=== PATIENT | male | born 1960 | race Caucasian/White ===

== ENCOUNTER 2016-03-19 11:37 | Emergency (ER) | payer OTHER ==
[~2016-03-19 11:37] MED LIST: ACET500C PO; BISA10SU4 PR; CLON0.2T PO; CLON0.5T PO; CYCL5TA PO; DOCU10CA PO; DULC5TAB PO; DULO30CA PO; FLOM5CAP PO; HYDR-3713 PO; LIDO2.5C15 TOP; LINZ145C PO; LYRI200C PO; LYRI75CA PO; MEVA40TA PO; MIRA3350 PO; MORP-38 PO; MORP30TA34 PO; MYLI40DR PO; OXYC-299 PO; OXYC5CAP28 PO; PROT1TAB2 PO; ROBA750T4 PO; SENN8.6T10 PO; SOMA350T PO; TIZA4CAP3 PO; VICO5TAB16 PO; XARE15TA PO; ZOFR20TA PO; ZOLO50TA PO; [UNRECOGNIZED DRUG - CODE] TOP; [UNRECOGNIZED DRUG - CODE] TOP; flexeril PO
[2016-03-19] MEDS ORDERED: ONDANSETRON 4MG/2ML VIAL (J2405) As Ordered ONE (12:38)
[2016-03-19] MEDS ORDERED: KETOROLAC 30 MG/ML VIAL (J1885) As Ordered ONE (12:38)
[2016-03-19 12:41] LABS: MICROSCOPIC INDICATED? NO (NO)
[2016-03-19 12:44] LABS: BASO % 0.8 % (0.0-1.0); EOS # 0.2 K/mm3 (0.0-0.50); EOS % 3.2 % (0.0-3.0); LARGE UNSTAINED CELL # 0.1 K/mm3 (0.0-0.4); LARGE UNSTAINED CELL % 2.9 % (0.0-4.0); LYMPH # 1.1 K/mm3 (1.5-4.5); LYMPH % 21.7 % (24.0-44.0); MEAN CORPUSCULAR HEMOGLOBIN 30.2 pg (27.0-33.0); MEAN CORPUSCULAR HGB CONC 33.9 g/dl (32.0-36.5); MEAN CORPUSCULAR VOLUME 88.9 fl (80.0-96.0); MONO # 0.3 K/mm3 (0.0-0.8); MONO % 6.4 % (0.0-5.0); NEUTROPHILS # 3.2 K/mm3 (1.8-7.7); PLATELET COUNT, AUTOMATED 265 k/mm3 (150-450); RED CELL DISTRIBUTION WIDTH 12.6 % (11.5-14.5); WHITE BLOOD COUNT 4.9 K/mm3 (4.0-10.0)
[2016-03-19 12:52] LABS: INR 0.98
[2016-03-19 13:05] LABS: ALBUMIN 3.8 GM/DL (3.2-5.2); ALBUMIN/GLOBULIN RATIO 0.95 (1.00-1.93); ALKALINE PHOSPHATASE 102 U/L (45-117); ALT/SGPT 22 U/L (12-78); AMYLASE 32 U/L (25-115); ANION GAP 7 MEQ/L (8-16); AST/SGOT 16 U/L (15-37); BILIRUBIN,DIRECT 0.1 MG/DL (0.0-0.2); BILIRUBIN,TOTAL 0.5 MG/DL (0.2-1.0); BLOOD UREA NITROGEN 18 MG/DL (7-18); CALCIUM LEVEL 9.3 MG/DL (8.5-10.1); CARBON DIOXIDE LEVEL 33 MEQ/L (21-32); CHLORIDE LEVEL 103 MEQ/L (98-107); CREATININE FOR GFR 1.24 MG/DL (0.70-1.30); GLOMERULAR FILTRATION RATE > 60.0 (>56); GLUCOSE, FASTING 111 MG/DL (70-105); POTASSIUM SERUM 4.2 MEQ/L (3.5-5.1); SODIUM LEVEL 143 MEQ/L (136-145); TOTAL PROTEIN 7.8 GM/DL (6.4-8.2)
[2016-03-19] MEDS ORDERED: MORPHINE 4 MG/ML 1ML SYRINGE As Ordered ONE (13:39)
--- NOTE | 2016-03-19 14:07 | EDDOCDS ---
Physician Documentation [facility] Name: Guillermo Lobo Age: 56 yrs Sex: Male : 1960 Arrival Date: 03/19/2016 Time: 11:37 Bed I5 / M5 Private MD: Jose Alejandro Zaragoza A. Disposition: 03/19/16 13:46 Discharged to Home/Self Care. Impression: Low back pain. - Condition is Stable. - Discharge Instructions: Back Pain, Adult. - Medication Reconciliation, Local Pharmacy Hours form. - Follow up: Jose Alejandro Zaragoza; When: 2 - 3 days; Reason: Recheck today's complaints, Continuance of care. - Problem is an ongoing problem. - Symptoms are unchanged. Historical: - Allergies: BACLOFEN; Codeine Sulfate; - Home Meds: 1. clonazepam 1 mg oral tab 2 times per day 2. Cymbalta 90 mg Oral cpDR 1 cap once daily 3. Flomax 0.4 mg Oral cp24 2 caps once daily 4. lidocaine topically four times a day 5. Mevacor 40 mg Oral tab 1 tab once daily 6. Miralax 17 gram Oral pwpk 1 packet chad daily 7. pregabalin 200 mg Oral cap 1 cap 3 times per day 8. Protonix 40 mg Oral TbEC 1 tab once daily 9. oxycodone 5 mg Oral tab as needed 10. Zoloft 50 mg Oral tab 1 tab once daily 11. Robaxin 750 mg Oral tab twice a day - PMHx: Chronic Back pain; Kidney stones; Hypercholesterolemia; GERD; - PSHx: kidney stone removal; back surgery; Cholecystectomy; - Social history: Smoking status: Patient states was never smoker of tobacco. No barriers to communication noted, The patient speaks fluent Guinean, Speaks appropriately for age. - Family history: Not pertinent. - : The pt / caregiver states he / she is not on anticoagulants. Home medication list is obtained from the patient, [employer] import data. - Exposure Risk Screening:: None identified. Vital Signs: 03/19 11:39 BP 117 / 83; Pulse 105; Resp 18 S; Temp 97.5(O); Pulse Ox 96% on R/A; Weight 111.13 kg dd6 / 245 lbs (R); Height 6 ft. 4 in. (193.04 cm) (R); 13:32 BP 104 / 75 RA Supine (auto/reg); Pulse 77; Resp 18; Temp 97.6(O); Pulse Ox 94% on R/A; rs6 Pain 8/10; 14:04 BP 107 / 63; Pulse 90; Resp 16; Temp 97.0; jmk 11:39 Body Mass Index 29.82 (111.13 kg, 193.04 cm) dd6 MDM: 12:14 NS 0.9% 1000 ml IV at 100 mL/hr continuous ordered. ke 12:14 Ondansetron 4 mg IVP once ordered. ke 12:14 ketorolac 30 mg IVP once ordered. ke 12:14 IV Saline Lock ordered. ke 12:14 Undress patient appropriately for examination ordered. ke 12:15 Amylase Ordered. EDMS 12:15 Basic Metabolic Profile Ordered. EDMS 12:15 CBC with Diff Ordered. EDMS 12:15 Lipase Ordered. EDMS 12:15 Liver Profile Ordered. EDMS 12:15 Prothrombin Time Profile\E\INR Ordered. EDMS 12:15 Urinalysis Ordered. EDMS 12:15 CT ABD & PELVIS: No Contrast Ordered. EDMS 12:16 NOTHING BY MOUTH+DIET ordered. EDMS 12:16 Financial registration complete. lg 12:48 [facility] Payment Agreement was scanned into [employer] and attached to record. lg 13:09 Basic Metabolic Profile Reviewed. ke 13:09 CBC with Diff Reviewed. ke 13:09 Liver Profile Reviewed. ke 13:09 Urinalysis Reviewed. ke 13:09 Amylase Reviewed. ke 13:09 Lipase Reviewed. ke 13:09 Prothrombin Time Profile\E\INR Reviewed. ke 13:35 morphine 4 mg IVP once ordered. ke Administered Medications: 12:42 Drug: NS 0.9% 1000 ml Route: IV; Rate: 100 mL/hr; Site: left antecubital; jmherminia 12:42 Drug: Ondansetron 4 mg Route: IVP; Site: left antecubital; vincenzo 12:42 Drug: ketorolac 30 mg [ketorolac 30 mg/mL (1 mL) injection solution (1 mL)] Route: IVP; vincenzo Site: left antecubital; 13:44 Drug: morphine 4 mg Route: IVP; Site: left antecubital; jmk Signatures: Dispatcher [employer] EDMS Jose L Patel,RN RN Edna Bunrs, Reg Reg lg Marco Queen, DECORATOR CONSULTANT DECORATOR CONSULTANT Alondra Mayer,RN RN seamus The chart was reviewed and I authenticate all verbal orders and agree with the evaluation and treatment provided.Attachments: 12:48 [facility] Payment Agreement lg MTDD
--- NOTE | 2016-03-19 14:07 | EDDOCDS ---
Nurse's Notes [facility] Name: Guillermo Lobo Age: 56 yrs Sex: Male : 1960 Arrival Date: 03/19/2016 Time: 11:37 Bed I5 / M5 Private MD: Jose Alejandro Zaragoza A. Diagnosis: Low back pain Presentation: 03/19 11:46 Presenting complaint: Patient states: c/o right sided abdominal pain, right flank pain, ead and right groin pain x 3 days. denies n/v, denies urinary pain. Acute neurological deficits are not present. Mechanism of Injury: No Mechanism of Injury. Adult Sepsis Screening: The patient does not have new or worsening altered mentation. Patient's respiratory rate is less than 22. Systolic blood pressure is greater than 100. Patient has a qSOFA score of 0- Negative Sepsis Screen. Suicide/Homicide risk assessment- the patient denies having any suicidal and/or homicidal ideations and does not present with any other emotional, behavioral or mental health complaints. Status: Patient is not a financial services professional or dependent. Transition of care: patient was not received from another setting of care. 11:46 Acuity: SONA Level 3 ead 11:46 Method Of Arrival: Walkin/Carried/Asstd ead Triage Assessment: 11:53 General: Appears in no apparent distress, uncomfortable, Behavior is appropriate for ead age, cooperative. Pain: Location: abdomen and pelvis Pain currently is 10 out of 10 on a pain scale. HIV screening NA for this visit Offered previously. Respiratory: Airway is patent Respiratory effort is even, unlabored. GI: Reports lower abdominal pain, Denies nausea, vomiting. Derm: Skin is pink, warm & dry. Musculoskeletal: Reports pain in back and abdomen. Historical: - Allergies: BACLOFEN; Codeine Sulfate; - Home Meds: 1. clonazepam 1 mg oral tab 2 times per day 2. Cymbalta 90 mg Oral cpDR 1 cap once daily 3. Flomax 0.4 mg Oral cp24 2 caps once daily 4. lidocaine topically four times a day 5. Mevacor 40 mg Oral tab 1 tab once daily 6. Miralax 17 gram Oral pwpk 1 packet chad daily 7. pregabalin 200 mg Oral cap 1 cap 3 times per day 8. Protonix 40 mg Oral TbEC 1 tab once daily 9. oxycodone 5 mg Oral tab as needed 10. Zoloft 50 mg Oral tab 1 tab once daily 11. Robaxin 750 mg Oral tab twice a day - PMHx: Chronic Back pain; Kidney stones; Hypercholesterolemia; GERD; - PSHx: kidney stone removal; back surgery; Cholecystectomy; - Social history: Smoking status: Patient states was never smoker of tobacco. No barriers to communication noted, The patient speaks fluent Greek, Speaks appropriately for age. - Family history: Not pertinent. - : The pt / caregiver states he / she is not on anticoagulants. Home medication list is obtained from the patient, [employer] import data. - Exposure Risk Screening:: None identified. Screenin:45 Screening information is obtained from the patient. Fall risk: No risks identified. [facility] Assistance ADL's: requires no assistance with activities of daily living. Abuse/DV Screen: The patient / caregiver reports he/she is: not in a situation that causes fear, pain or injury. Nutritional screening: No deficits noted. home support is adequate. Assessment: 12:45 General: Appears in no apparent distress, skin warm and dry color satisfactory. Moist jmk pink oral mucosa. abd soft and non distended with bowel sounds present x 4. indicates discomfort to right flank area.. GI: Abdomen is non- distended obese, Bowel sounds present X 4 quads. Abd is soft X 4 quads Abd is tender to palpation in right upper quadrant and right lower quadrant. 13:31 General: Appears states pain has decreased to 7/10. IV nearing completion.. jmk 14:04 General: Appears states pain has decreased to 6-7 and is receptive to discharge.. k Vital Signs: 11:39 BP 117 / 83; Pulse 105; Resp 18 S; Temp 97.5(O); Pulse Ox 96% on R/A; Weight 111.13 kg dd6 (R); Height 6 ft. 4 in. (193.04 cm) (R); 13:32 BP 104 / 75 RA Supine (auto/reg); Pulse 77; Resp 18; Temp 97.6(O); Pulse Ox 94% on R/A; rs6 Pain 8/10; 14:04 BP 107 / 63; Pulse 90; Resp 16; Temp 97.0; jmk 11:39 Body Mass Index 29.82 (111.13 kg, 193.04 cm) dd6 Vitals: 11:39 Log In Time: March 19, 2016 at 11:37. dd6 ED Course: 11:38 Patient visited by Dhaval Flood PCA. dd6 11:38 Patient moved to Waiting dd6 11:39 Jose Alejandro Zaragoza is Private Physician. dd6 11:40 Patient moved to Pre RCE dd6 11:48 Triage Initiated ead 11:56 Patient moved to Triage 2 rs3 12:04 [facility] ke 12:05 Patient visited by Marco uQeen FNP. ke 12:05 Patient visited by Marco Queen FNP. ke 12:17 Elise Edmond, RN is Primary Nurse. ar3 12:17 Patient moved to I5 / M5 ar3 12:20 Urinalysis Sent. ar3 12:21 Patient visited by Marco Queen FNP. ke 12:45 The patient / caregiver is instructed regarding the plan of care and ED course. jmk 12:45 Inserted saline lock: 20 gauge in left and blood collected. jmk 12:48 [facility] Payment Agreement was scanned into Order Mapper and attached to record. lg 12:56 Patient visited by Marco Queen FNP. ke 13:29 Patient visited by Marco Queen FNP. ke 13:32 Patient visited by Lulu Castle PCA. rs6 13:34 Patient visited by Jose L Patel,[place]. jmk 13:45 Jose Alejandro Zaragoza is Referral Physician. ke 14:04 Discontinued lock intact, bleeding controlled, pressure dressing applied, No jmk redness/swelling at site. No procedures done that require assistance. Administered Medications: 12:42 Drug: NS 0.9% 1000 ml Route: IV; Rate: 100 mL/hr; Site: left antecubital; agustínk 12:42 Drug: Ondansetron 4 mg Route: IVP; Site: left antecubital; jmk 12:42 Drug: ketorolac 30 mg [ketorolac 30 mg/mL (1 mL) injection solution (1 mL)] Route: IVP; agustínk Site: left antecubital; 13:44 Drug: morphine 4 mg Route: IVP; Site: left antecubital; jmk Order Results: Lab Order: Amylase; SPEC'M 03/19/16 12:34 Test: AMYLASE; Value: 32; Range: 25-115; Units: U/L; Status: F Lab Order: Basic Metabolic Profile; SPEC'M 03/19/16 12:34 Test: GLUCOSE, FASTING; Value: 111; Range: 70-105; Abnormal: Above high normal; Units: MG/DL; Status: F Test: BLOOD UREA NITROGEN; Value: 18; Range: 7-18; Units: MG/DL; Status: F Test: CREATININE FOR GFR; Value: 1.24; Range: 0.70-1.30; Units: MG/DL; Status: F Test: GLOMERULAR FILTRATION RATE; Value: > 60.0; Range: >56; Status: F Test: SODIUM LEVEL; Value: 143; Range: 136-145; Units: MEQ/L; Status: F Test: POTASSIUM SERUM; Value: 4.2; Range: 3.5-5.1; Units: MEQ/L; Status: F Test: CHLORIDE LEVEL; Value: 103; Range: 98-107; Units: MEQ/L; Status: F Test: CARBON DIOXIDE LEVEL; Value: 33; Range: 21-32; Abnormal: Above high normal; Units: MEQ/L; Status: F Test: ANION GAP; Value: 7; Range: 8-16; Abnormal: Below low normal; Units: MEQ/L; Status: F Test: CALCIUM LEVEL; Value: 9.3; Range: 8.5-10.1; Units: MG/DL; Status: F Test Note: ; Units are mL/min/1.73 m2 Chronic Kidney Disease Staging per NKF: Stage I & II GFR >=60 Normal to Mildly Decreased Stage III GFR 30-59 Moderately Decreased Stage IV GFR 15-29 Severely Decreased Stage V GFR <15 Very Little GFR Left ESRD GFR <15 on [employer] Lab Order: CBC with Diff; SPEC'M 03/19/16 12:34 Test: WHITE BLOOD COUNT; Value: 4.9; Range: 4.0-10.0; Units: K/mm3; Status: F Test: RED BLOOD COUNT; Value: 5.01; Range: 4.30-6.10; Units: M/mm3; Status: F Test: HEMOGLOBIN; Value: 15.1; Range: 14.0-18.0; Units: g/dl; Status: F Test: HEMATOCRIT; Value: 44.5; Range: 42.0-52.0; Units: %; Status: F Test: MEAN CORPUSCULAR VOLUME; Value: 88.9; Range: 80.0-96.0; Units: fl; Status: F Test: MEAN CORPUSCULAR HEMOGLOBIN; Value: 30.2; Range: 27.0-33.0; Units: pg; Status: F Test: MEAN CORPUSCULAR HGB CONC; Value: 33.9; Range: 32.0-36.5; Units: g/dl; Status: F Test: RED CELL DISTRIBUTION WIDTH; Value: 12.6; Range: 11.5-14.5; Units: %; Status: F Test: PLATELET COUNT, AUTOMATED; Value: 265; Range: 150-450; Units: k/mm3; Status: F Test: NEUTROPHILS %; Value: 65.0; Range: 36.0-66.0; Units: %; Status: F Test: LYMPH %; Value: 21.7; Range: 24.0-44.0; Abnormal: Below low normal; Units: %; Status: F Test: MONO %; Value: 6.4; Range: 0.0-5.0; Abnormal: Above high normal; Units: %; Status: F Test: EOS %; Value: 3.2; Range: 0.0-3.0; Abnormal: Above high normal; Units: %; Status: F Test: BASO %; Value: 0.8; Range: 0.0-1.0; Units: %; Status: F Test: LARGE UNSTAINED CELL %; Value: 2.9; Range: 0.0-4.0; Units: %; Status: F Test: NEUTROPHILS #; Value: 3.2; Range: 1.8-7.7; Units: K/mm3; Status: F Test: LYMPH #; Value: 1.1; Range: 1.5-4.5; Abnormal: Below low normal; Units: K/mm3; Status: F Test: MONO #; Value: 0.3; Range: 0.0-0.8; Units: K/mm3; Status: F Test: EOS #; Value: 0.2; Range: 0.0-0.50; Units: K/mm3; Status: F Test: BASO #; Value: 0.0; Range: 0.0-0.2; Units: K/mm3; Status: F Test: LARGE UNSTAINED CELL #; Value: 0.1; Range: 0.0-0.4; Units: K/mm3; Status: F Lab Order: Lipase; SPEC' 03/19/16 12:34 Test: LIPASE; Value: 126; Range: 73-393; Units: U/L; Status: F Lab Order: Liver Profile; SPEC'M 03/19/16 12:34 Test: AST/SGOT; Value: 16; Range: 15-37; Units: U/L; Status: F Test: ALT/SGPT; Value: 22; Range: 12-78; Units: U/L; Status: F Test: ALKALINE PHOSPHATASE; Value: 102; Range: 45-117; Units: U/L; Status: F Test: BILIRUBIN,TOTAL; Value: 0.5; Range: 0.2-1.0; Units: MG/DL; Status: F Test: BILIRUBIN,DIRECT; Value: 0.1; Range: 0.0-0.2; Units: MG/DL; Status: F Test: TOTAL PROTEIN; Value: 7.8; Range: 6.4-8.2; Units: GM/DL; Status: F Test: ALBUMIN; Value: 3.8; Range: 3.2-5.2; Units: GM/DL; Status: F Test: ALBUMIN/GLOBULIN RATIO; Value: 0.95; Range: 1.00-1.93; Abnormal: Below low normal; Status: F Lab Order: Prothrombin Time Profile\E\INR; SPEC'M 03/19/16 12:34 Test: PROTHROMBIN TIME; Value: 13.1; Range: 12.3-14.5; Units: SECONDS; Status: F Test: INR; Value: 0.98; Status: F Test Note: ; THERAPUTIC HUMAN INR VALUES INDICATIONS NORMAL RANGES PROPHYLAXIS/TREATMENT OF: VENOUS THROMBOSIS 2.0-3.0 PULMONARY EMBOLISM 2.0-3.0 PREVENTION OF SYSTEMIC EMBOLISM FROM: TISSUE HEART VALVES 2.0-3.0 ACUTE MYOCARDIAL INFARCTION 2.0-3.0 VALVULAR HEART DISEASE 2.0-3.0 ATRIAL FIBRILLATION 2.0-3.0 MECHANICAL VALVES(HIGH RISK) 2.5-3.5 RECURRENT MYOCARDIAL INFARCTION 2.5-3.5 Lab Order: Urinalysis; SPEC'M 03/19/16 12:20 Test: APPEARANCE, URINE; Value: CLEAR; Range: CLEAR; Status: F Test: COLOR, URINE; Value: YELLOW; Range: YELLOW; Status: F Test: PH,URINE; Value: 5.0; Range: 5.0-9.0; Units: UNITS; Status: F Test: SPECIFIC GRAVITY URINE AUTO; Value: 1.016; Range: 1.002-1.035; Status: F Test: PROTEIN, URINE AUTO; Value: NEGATIVE; Range: NEGATIVE; Units: mg/dL; Status: F Test: GLUCOSE, URINE (UA) AUTO; Value: NEGATIVE; Range: NEGATIVE; Units: mg/dL; Status: F Test: KETONE, URINE AUTO; Value: NEGATIVE; Range: NEGATIVE; Units: mg/dL; Status: F Test: UROBILINOGEN, URINE AUTO; Value: 0.2; Range: 0.0-2.0; Units: mg/dL; Status: F Test: BILIRUBIN, URINE AUTO; Value: 1+; Range: NEGATIVE; Abnormal: Above high normal; Status: F Test: NITRITE, URINE AUTO; Value: NEGATIVE; Range: NEGATIVE; Status: F Test: LEUKOCYTE ESTERASE, URINE AUTO; Value: NEGATIVE; Range: NEGATIVE; Status: F Test: BLOOD, URINE BLOOD; Value: NEGATIVE; Range: NEGATIVE; Status: F Test: WBC, URINE AUTO; Value: 1; Range: 0-3; Units: /HPF; Status: F Test: RBC, URINE AUTO; Value: 1; Range: 0-3; Units: /HPF; Status: F Test: BACTERIA, URINE AUTO; Value: NEGATIVE; Range: NEGATIVE; Status: F Test: SQUAMOUS EPITHELIAL CELL UR AU; Value: 0; Range: 0-6; Units: /HPF; Status: F Test: MUCUS, URINE; Value: SMALL; Range: NEGATIVE; Status: F Test: HYALINE CAST, URINE AUTO; Value: 0; Range: 0-1; Units: /LPF; Status: F Outcome: 13:46 Discharge ordered by Provider. ke 14:04 Discharge Assessment: Patient awake, alert and oriented x 3. No cognitive and/or jmk functional deficits noted. Patient verbalized understanding of disposition instructions. patient administered narcotics - yes. Pt provided with safe discharge. The following High Risk Discharge criteria are identified: None. Discharged to home via wheelchair. Condition: good. Discharge instructions given to patient, Instructed on discharge instructions, follow up and referral plans. medication usage, Demonstrated understanding of instructions, medications, Pt was receptive of discharge instructions/ teaching. CT Study completed. Property :Personal belongings accompany Pt. 14:06 Patient left the ED. vincenzo Signatures: Jose L Patel,RN RN Edna Burns, Reg Reg lg Marco Queen, SUPERVISOR REINFORCED STEEL PLACING SUPERVISOR REINFORCED STEEL PLACING Dhaval Baird, CLINICAL PROFESSOR CLINICAL PROFESSOR dd6 Margaret Lovett,RN RN rs3 Audra Urban, CLINICAL PROFESSOR CLINICAL PROFESSOR ar3 Alondra Ayers,RN RN Lulu Dave, CLINICAL PROFESSOR CLINICAL PROFESSOR rs6 RAMÍREZ
--- NOTE | 2016-03-19 17:18 | REP ---
CT abdomen and pelvis without contrast 03/19/2016 Indication: Right-sided renal colic Comparison: CT pelvis 12/09/2014, CT abdomen pelvis 12/01/14 Findings: Stable 13 mm cyst is present with in the right dome of liver. Spleen, pancreas, adrenal glands are normal. There has been prior cholecystectomy. Two small nonobstructing Nephro calculi are noted in lower pole right kidney, largest 4 mm in diameter. Nonobstructing 6 x 2 mm calculus is noted in the lower pole left kidney. There is a 2.2 cm cyst in lower pole right renal cortex. There is no hydronephrosis or obstructing ureteral calculi bilaterally. There are bilateral lower pelvic phleboliths. The stomach and small bowel are within normal limits. The terminal ileum is normal. Appendix is not specifically identified yet there is no evidence of appendiceal inflammation. There are no pathologically enlarged retroperitoneal nodes. Bladder is contracted. Prostate is not enlarged. There is no free air or ascites There has been previous bilateral posterior fusion with vertical stabilization rods within the included portions of the lower thoracic spine through L1 level. Impression: No hydronephrosis or obstructing ureteral calculi bilaterally. There are two small nonobstructing adjacent right Nephro calculi, largest 4 mm. Additionally there is a 6 x 2 mm nonobstructing calculus in lower pole left kidney. There is a 2.2 cm cortical cyst lower pole right kidney. Bilateral lower pelvic phleboliths There is no acute intra abdominal or pelvic pathology Signed by Ariella Mtz MD 03/19/2016 05:10 P
--- NOTE | 2016-03-21 15:07 | EDDOCDS ---
Nurse's Notes [facility] Name: Guillermo Lobo Age: 56 yrs Sex: Male : 1960 Arrival Date: 03/19/2016 Time: 11:37 Bed I5 / M5 Private MD: Jose Alejandro Zaragoza A. Diagnosis: Low back pain Presentation: 03/19 11:46 Presenting complaint: Patient states: c/o right sided abdominal pain, right flank pain, ead and right groin pain x 3 days. denies n/v, denies urinary pain. Acute neurological deficits are not present. Mechanism of Injury: No Mechanism of Injury. Adult Sepsis Screening: The patient does not have new or worsening altered mentation. Patient's respiratory rate is less than 22. Systolic blood pressure is greater than 100. Patient has a qSOFA score of 0- Negative Sepsis Screen. Suicide/Homicide risk assessment- the patient denies having any suicidal and/or homicidal ideations and does not present with any other emotional, behavioral or mental health complaints. 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 Transition of care: patient was not received from another setting of care. 11:46 Acuity: SONA Level 3 ead 11:46 Method Of Arrival: Walkin/Carried/Asstd ead Triage Assessment: 11:53 General: Appears in no apparent distress, uncomfortable, Behavior is appropriate for ead age, cooperative. Pain: Location: abdomen and pelvis Pain currently is 10 out of 10 on a pain scale. HIV screening NA for this visit Offered previously. Respiratory: Airway is patent Respiratory effort is even, unlabored. GI: Reports lower abdominal pain, Denies nausea, vomiting. Derm: Skin is pink, warm & dry. Musculoskeletal: Reports pain in back and abdomen. Historical: - Allergies: BACLOFEN; Codeine Sulfate; - Home Meds: 1. clonazepam 1 mg oral tab 2 times per day 2. Cymbalta 90 mg Oral cpDR 1 cap once daily 3. Flomax 0.4 mg Oral cp24 2 caps once daily 4. lidocaine topically four times a day 5. Mevacor 40 mg Oral tab 1 tab once daily 6. Miralax 17 gram Oral pwpk 1 packet chad daily 7. pregabalin 200 mg Oral cap 1 cap 3 times per day 8. Protonix 40 mg Oral TbEC 1 tab once daily 9. oxycodone 5 mg Oral tab as needed 10. Zoloft 50 mg Oral tab 1 tab once daily 11. Robaxin 750 mg Oral tab twice a day - PMHx: Chronic Back pain; Kidney stones; Hypercholesterolemia; GERD; - PSHx: kidney stone removal; back surgery; Cholecystectomy; - Social history: Smoking status: Patient states was never smoker of tobacco. No barriers to communication noted, The patient speaks fluent Spanish, Speaks appropriately for age. - Family history: Not pertinent. - : The pt / caregiver states he / she is not on anticoagulants. Home medication list is obtained from the patient, [employer] import data. - Exposure Risk Screening:: None identified. Screenin:45 Screening information is obtained from the patient. Fall risk: No risks identified. [facility] Assistance ADL's: requires no assistance with activities of daily living. Abuse/DV Screen: The patient / caregiver reports he/she is: not in a situation that causes fear, pain or injury. Nutritional screening: No deficits noted. home support is adequate. Assessment: 12:45 General: Appears in no apparent distress, skin warm and dry color satisfactory. Moist jmk pink oral mucosa. abd soft and non distended with bowel sounds present x 4. indicates discomfort to right flank area.. GI: Abdomen is non- distended obese, Bowel sounds present X 4 quads. Abd is soft X 4 quads Abd is tender to palpation in right upper quadrant and right lower quadrant. 13:31 General: Appears states pain has decreased to 7/10. IV nearing completion.. jmk 14:04 General: Appears states pain has decreased to 6-7 and is receptive to discharge.. k Vital Signs: 11:39 BP 117 / 83; Pulse 105; Resp 18 S; Temp 97.5(O); Pulse Ox 96% on R/A; Weight 111.13 kg dd6 (R); Height 6 ft. 4 in. (193.04 cm) (R); 13:32 BP 104 / 75 RA Supine (auto/reg); Pulse 77; Resp 18; Temp 97.6(O); Pulse Ox 94% on R/A; rs6 Pain 8/10; 14:04 BP 107 / 63; Pulse 90; Resp 16; Temp 97.0; jmk 11:39 Body Mass Index 29.82 (111.13 kg, 193.04 cm) dd6 Vitals: 11:39 Log In Time: March 19, 2016 at 11:37. dd6 ED Course: 11:38 Patient visited by Dhaval Flood PCA. dd6 11:38 Patient moved to Waiting dd6 11:39 Jose Alejandro Zaragoza is Private Physician. dd6 11:40 Patient moved to Pre RCE dd6 11:48 Triage Initiated ead 11:56 Patient moved to Triage 2 rs3 12:04 Marco Queen FNP is PHCP. ke 12:05 Patient visited by Marco Queen FNP. ke 12:05 Patient visited by Marco Queen FNP. ke 12:17 Elise Edmond, RN is Primary Nurse. ar3 12:17 Patient moved to I5 / M5 ar3 12:20 Urinalysis Sent. ar3 12:21 Patient visited by Marco Queen FNP. ke 12:45 The patient / caregiver is instructed regarding the plan of care and ED course. jmk 12:45 Inserted saline lock: 20 gauge in left and blood collected. jmk 12:48 [facility] Payment Agreement was scanned into [employer] and attached to record. lg 12:56 Patient visited by Marco Queen FNP. ke 13:29 Patient visited by Marco Queen FNP. ke 13:32 Patient visited by Lulu Castle PCA. rs6 13:34 Patient visited by Jose L Patel,[place]. jmk 13:45 Jose Alejandro Zaragoza is Referral Physician. ke 14:04 Discontinued lock intact, bleeding controlled, pressure dressing applied, No jmk redness/swelling at site. No procedures done that require assistance. 17:43 CT ABD & PELVIS: No Contrast Returned. EDMS 03/20 02:19 T-Sheet-- Draft Copy was scanned into [employer] and attached to record. hs2 Administered Medications: 03/19 12:42 Drug: NS 0.9% 1000 ml Route: IV; Rate: 100 mL/hr; Site: left antecubital; vincenzo 12:42 Drug: Ondansetron 4 mg Route: IVP; Site: left antecubital; vincenzo 12:42 Drug: ketorolac 30 mg [ketorolac 30 mg/mL (1 mL) injection solution (1 mL)] Route: IVP; [facility] Site: left antecubital; 13:44 Drug: morphine 4 mg Route: IVP; Site: left antecubital; [facility] Order Results: Lab Order: Amylase; SPEC'03/19/16 12:34 Test: AMYLASE; Value: 32; Range: 25-115; Units: U/L; Status: F Lab Order: Basic Metabolic Profile; SPEC03/19/16 12:34 Test: GLUCOSE, FASTING; Value: 111; Range: 70-105; Abnormal: Above high normal; Units: MG/DL; Status: F Test: BLOOD UREA NITROGEN; Value: 18; Range: 7-18; Units: MG/DL; Status: F Test: CREATININE FOR GFR; Value: 1.24; Range: 0.70-1.30; Units: MG/DL; Status: F Test: GLOMERULAR FILTRATION RATE; Value: > 60.0; Range: >56; Status: F Test: SODIUM LEVEL; Value: 143; Range: 136-145; Units: MEQ/L; Status: F Test: POTASSIUM SERUM; Value: 4.2; Range: 3.5-5.1; Units: MEQ/L; Status: F Test: CHLORIDE LEVEL; Value: 103; Range: 98-107; Units: MEQ/L; Status: F Test: CARBON DIOXIDE LEVEL; Value: 33; Range: 21-32; Abnormal: Above high normal; Units: MEQ/L; Status: F Test: ANION GAP; Value: 7; Range: 8-16; Abnormal: Below low normal; Units: MEQ/L; Status: F Test: CALCIUM LEVEL; Value: 9.3; Range: 8.5-10.1; Units: MG/DL; Status: F Test Note: ; Units are mL/min/1.73 m2 Chronic Kidney Disease Staging per NKF: Stage I & II GFR >=60 Normal to Mildly Decreased Stage III GFR 30-59 Moderately Decreased Stage IV GFR 15-29 Severely Decreased Stage V GFR <15 Very Little GFR Left ESRD GFR <15 on MACHINE APPLICATOR CEMENTER Lab Order: CBC with Diff; SPEC'03/19/16 12:34 Test: WHITE BLOOD COUNT; Value: 4.9; Range: 4.0-10.0; Units: K/mm3; Status: F Test: RED BLOOD COUNT; Value: 5.01; Range: 4.30-6.10; Units: M/mm3; Status: F Test: HEMOGLOBIN; Value: 15.1; Range: 14.0-18.0; Units: g/dl; Status: F Test: HEMATOCRIT; Value: 44.5; Range: 42.0-52.0; Units: %; Status: F Test: MEAN CORPUSCULAR VOLUME; Value: 88.9; Range: 80.0-96.0; Units: fl; Status: F Test: MEAN CORPUSCULAR HEMOGLOBIN; Value: 30.2; Range: 27.0-33.0; Units: pg; Status: F Test: MEAN CORPUSCULAR HGB CONC; Value: 33.9; Range: 32.0-36.5; Units: g/dl; Status: F Test: RED CELL DISTRIBUTION WIDTH; Value: 12.6; Range: 11.5-14.5; Units: %; Status: F Test: PLATELET COUNT, AUTOMATED; Value: 265; Range: 150-450; Units: k/mm3; Status: F Test: NEUTROPHILS %; Value: 65.0; Range: 36.0-66.0; Units: %; Status: F Test: LYMPH %; Value: 21.7; Range: 24.0-44.0; Abnormal: Below low normal; Units: %; Status: F Test: MONO %; Value: 6.4; Range: 0.0-5.0; Abnormal: Above high normal; Units: %; Status: F Test: EOS %; Value: 3.2; Range: 0.0-3.0; Abnormal: Above high normal; Units: %; Status: F Test: BASO %; Value: 0.8; Range: 0.0-1.0; Units: %; Status: F Test: LARGE UNSTAINED CELL %; Value: 2.9; Range: 0.0-4.0; Units: %; Status: F Test: NEUTROPHILS #; Value: 3.2; Range: 1.8-7.7; Units: K/mm3; Status: F Test: LYMPH #; Value: 1.1; Range: 1.5-4.5; Abnormal: Below low normal; Units: K/mm3; Status: F Test: MONO #; Value: 0.3; Range: 0.0-0.8; Units: K/mm3; Status: F Test: EOS #; Value: 0.2; Range: 0.0-0.50; Units: K/mm3; Status: F Test: BASO #; Value: 0.0; Range: 0.0-0.2; Units: K/mm3; Status: F Test: LARGE UNSTAINED CELL #; Value: 0.1; Range: 0.0-0.4; Units: K/mm3; Status: F Lab Order: Lipase; [facility]' 03/19/16 12:34 Test: LIPASE; Value: 126; Range: 73-393; Units: U/L; Status: F Lab Order: Liver Profile; [facility] 03/19/16 12:34 Test: AST/SGOT; Value: 16; Range: 15-37; Units: U/L; Status: F Test: ALT/SGPT; Value: 22; Range: 12-78; Units: U/L; Status: F Test: ALKALINE PHOSPHATASE; Value: 102; Range: 45-117; Units: U/L; Status: F Test: BILIRUBIN,TOTAL; Value: 0.5; Range: 0.2-1.0; Units: MG/DL; Status: F Test: BILIRUBIN,DIRECT; Value: 0.1; Range: 0.0-0.2; Units: MG/DL; Status: F Test: TOTAL PROTEIN; Value: 7.8; Range: 6.4-8.2; Units: GM/DL; Status: F Test: ALBUMIN; Value: 3.8; Range: 3.2-5.2; Units: GM/DL; Status: F Test: ALBUMIN/GLOBULIN RATIO; Value: 0.95; Range: 1.00-1.93; Abnormal: Below low normal; Status: F Lab Order: Prothrombin Time Profile\E\INR; [facility]03/19/16 12:34 Test: PROTHROMBIN TIME; Value: 13.1; Range: 12.3-14.5; Units: SECONDS; Status: F Test: INR; Value: 0.98; Status: F Test Note: ; THERAPUTIC HUMAN INR VALUES INDICATIONS NORMAL RANGES PROPHYLAXIS/TREATMENT OF: VENOUS THROMBOSIS 2.0-3.0 PULMONARY EMBOLISM 2.0-3.0 PREVENTION OF SYSTEMIC EMBOLISM FROM: TISSUE HEART VALVES 2.0-3.0 ACUTE MYOCARDIAL INFARCTION 2.0-3.0 VALVULAR HEART DISEASE 2.0-3.0 ATRIAL FIBRILLATION 2.0-3.0 MECHANICAL VALVES(HIGH RISK) 2.5-3.5 RECURRENT MYOCARDIAL INFARCTION 2.5-3.5 Lab Order: Urinalysis; SPEC'M 03/19/16 12:20 Test: APPEARANCE, URINE; Value: CLEAR; Range: CLEAR; Status: F Test: COLOR, URINE; Value: YELLOW; Range: YELLOW; Status: F Test: PH,URINE; Value: 5.0; Range: 5.0-9.0; Units: UNITS; Status: F Test: SPECIFIC GRAVITY URINE AUTO; Value: 1.016; Range: 1.002-1.035; Status: F Test: PROTEIN, URINE AUTO; Value: NEGATIVE; Range: NEGATIVE; Units: mg/dL; Status: F Test: GLUCOSE, URINE (UA) AUTO; Value: NEGATIVE; Range: NEGATIVE; Units: mg/dL; Status: F Test: KETONE, URINE AUTO; Value: NEGATIVE; Range: NEGATIVE; Units: mg/dL; Status: F Test: UROBILINOGEN, URINE AUTO; Value: 0.2; Range: 0.0-2.0; Units: mg/dL; Status: F Test: BILIRUBIN, URINE AUTO; Value: 1+; Range: NEGATIVE; Abnormal: Above high normal; Status: F Test: NITRITE, URINE AUTO; Value: NEGATIVE; Range: NEGATIVE; Status: F Test: LEUKOCYTE ESTERASE, URINE AUTO; Value: NEGATIVE; Range: NEGATIVE; Status: F Test: BLOOD, URINE BLOOD; Value: NEGATIVE; Range: NEGATIVE; Status: F Test: WBC, URINE AUTO; Value: 1; Range: 0-3; Units: /HPF; Status: F Test: RBC, URINE AUTO; Value: 1; Range: 0-3; Units: /HPF; Status: F Test: BACTERIA, URINE AUTO; Value: NEGATIVE; Range: NEGATIVE; Status: F Test: SQUAMOUS EPITHELIAL CELL UR AU; Value: 0; Range: 0-6; Units: /HPF; Status: F Test: MUCUS, URINE; Value: SMALL; Range: NEGATIVE; Status: F Test: HYALINE CAST, URINE AUTO; Value: 0; Range: 0-1; Units: /LPF; Status: F Radiology Order: CT ABD & PELVIS: No Contrast Test: CT ABD & PELVIS: No Contrast REASON FOR EXAMINATION: Renal colic; CT abdomen and pelvis without contrast 03/19/2016; ; Indication: Right-sided renal colic; ; Comparison: CT pelvis 12/09/2014, CT abdomen pelvis 12/01/14; ; Findings: Stable 13 mm cyst is present with in the right dome of liver. Spleen,; pancreas, adrenal glands are normal. There has been prior cholecystectomy. Two; small nonobstructing Nephro calculi are noted in lower pole right kidney,; largest 4 mm in diameter. Nonobstructing 6 x 2 mm calculus is noted in the; lower pole left kidney. There is a 2.2 cm cyst in lower pole right renal; cortex. There is no hydronephrosis or obstructing ureteral calculi bilaterally.; There are bilateral lower pelvic phleboliths. The stomach and small bowel are; within normal limits. The terminal ileum is normal. Appendix is not; specifically identified yet there is no evidence of appendiceal inflammation.; There are no pathologically enlarged retroperitoneal nodes.; ; Bladder is contracted. Prostate is not enlarged. There is no free air or; ascites; ; There has been previous bilateral posterior fusion with vertical stabilization; rods within the included portions of the lower thoracic spine through L1 level.; ; Impression:; ; No hydronephrosis or obstructing ureteral calculi bilaterally. There are two; small nonobstructing adjacent right Nephro calculi, largest 4 mm. Additionally; there is a 6 x 2 mm nonobstructing calculus in lower pole left kidney. There is; a 2.2 cm cortical cyst lower pole right kidney.; ; Bilateral lower pelvic phleboliths; ; There is no acute intra abdominal or pelvic pathology; ; ; Signed by; Ariella Mtz MD 03/19/2016 05:10 P; Outcome: 13:46 Discharge ordered by Provider. dilip 14:04 Discharge Assessment: Patient awake, alert and oriented x 3. No cognitive and/or jmk functional deficits noted. Patient verbalized understanding of disposition instructions. patient administered narcotics - yes. Pt provided with safe discharge. The following High Risk Discharge criteria are identified: None. Discharged to home via wheelchair. Condition: good. Discharge instructions given to patient, Instructed on discharge instructions, follow up and referral plans. medication usage, Demonstrated understanding of instructions, medications, Pt was receptive of discharge instructions/ teaching. CT Study completed. Property :Personal belongings accompany Pt. 14:06 Patient left the ED. vincenzo Signatures: Dispatcher [employer] EDJose L Mendez,RN RN Edna Burns, Reg Reg lg Marco Queen, SECTION MAINTAINER SECTION MAINTAINER Dhaval Baird, COSTUME MISTRESS COSTUME MISTRESS dd6 Margaret LovettRN RN rs3 Audra Urban, COSTUME MISTRESS COSTUME MISTRESS ar3 Alondra Ayers,RN RN Lulu Dave, COSTUME MISTRESS COSTUME MISTRESS rs6 Veronica Del Angel, Reg Reg hs2 Chart Complete MTDD
--- NOTE | 2016-03-21 15:07 | EDDOCDS ---
Physician Documentation [facility] Name: Guillermo Lobo Age: 56 yrs Sex: Male : 1960 Arrival Date: 03/19/2016 Time: 11:37 Bed I5 / M5 Private MD: Jose Alejandro Zaragoza A. Disposition: 03/19/16 13:46 Discharged to Home/Self Care. Impression: Low back pain. - Condition is Stable. - Discharge Instructions: Back Pain, Adult. - Medication Reconciliation, Local Pharmacy Hours form. - Follow up: Jose Alejandro Zaragoza; When: 2 - 3 days; Reason: Recheck today's complaints, Continuance of care. - Problem is an ongoing problem. - Symptoms are unchanged. Historical: - Allergies: BACLOFEN; Codeine Sulfate; - Home Meds: 1. clonazepam 1 mg oral tab 2 times per day 2. Cymbalta 90 mg Oral cpDR 1 cap once daily 3. Flomax 0.4 mg Oral cp24 2 caps once daily 4. lidocaine topically four times a day 5. Mevacor 40 mg Oral tab 1 tab once daily 6. Miralax 17 gram Oral pwpk 1 packet chad daily 7. pregabalin 200 mg Oral cap 1 cap 3 times per day 8. Protonix 40 mg Oral TbEC 1 tab once daily 9. oxycodone 5 mg Oral tab as needed 10. Zoloft 50 mg Oral tab 1 tab once daily 11. Robaxin 750 mg Oral tab twice a day - PMHx: Chronic Back pain; Kidney stones; Hypercholesterolemia; GERD; - PSHx: kidney stone removal; back surgery; Cholecystectomy; - Social history: Smoking status: Patient states was never smoker of tobacco. No barriers to communication noted, The patient speaks fluent Salvadorean, Speaks appropriately for age. - Family history: Not pertinent. - : The pt / caregiver states he / she is not on anticoagulants. Home medication list is obtained from the patient, [employer] import data. - Exposure Risk Screening:: None identified. Vital Signs: 03/19 11:39 BP 117 / 83; Pulse 105; Resp 18 S; Temp 97.5(O); Pulse Ox 96% on R/A; Weight 111.13 kg dd6 / 245 lbs (R); Height 6 ft. 4 in. (193.04 cm) (R); 13:32 BP 104 / 75 RA Supine (auto/reg); Pulse 77; Resp 18; Temp 97.6(O); Pulse Ox 94% on R/A; rs6 Pain 8/10; 14:04 BP 107 / 63; Pulse 90; Resp 16; Temp 97.0; jmk 11:39 Body Mass Index 29.82 (111.13 kg, 193.04 cm) dd6 MDM: 12:14 NS 0.9% 1000 ml IV at 100 mL/hr continuous ordered. ke 12:14 Ondansetron 4 mg IVP once ordered. ke 12:14 ketorolac 30 mg IVP once ordered. ke 12:14 IV Saline Lock ordered. ke 12:14 Undress patient appropriately for examination ordered. ke 12:15 Amylase Ordered. EDMS 12:15 Basic Metabolic Profile Ordered. EDMS 12:15 CBC with Diff Ordered. EDMS 12:15 Lipase Ordered. EDMS 12:15 Liver Profile Ordered. EDMS 12:15 Prothrombin Time Profile\E\INR Ordered. EDMS 12:15 Urinalysis Ordered. EDMS 12:15 CT ABD & PELVIS: No Contrast Ordered. EDMS 12:16 NOTHING BY MOUTH+DIET ordered. EDMS 12:16 Financial registration complete. lg 12:48 [facility] Payment Agreement was scanned into [employer] and attached to record. lg 13:09 Basic Metabolic Profile Reviewed. ke 13:09 CBC with Diff Reviewed. ke 13:09 Liver Profile Reviewed. ke 13:09 Urinalysis Reviewed. ke 13:09 Amylase Reviewed. ke 13:09 Lipase Reviewed. ke 13:09 Prothrombin Time Profile\E\INR Reviewed. ke 13:35 morphine 4 mg IVP once ordered. ke 03/20 02:19 T-Sheet-- Draft Copy was scanned into [employer] and attached to record. hs2 Administered Medications: 03/19 12:42 Drug: NS 0.9% 1000 ml Route: IV; Rate: 100 mL/hr; Site: left antecubital; vincenzo 12:42 Drug: Ondansetron 4 mg Route: IVP; Site: left antecubital; vincenzo 12:42 Drug: ketorolac 30 mg [ketorolac 30 mg/mL (1 mL) injection solution (1 mL)] Route: IVP; vincenzo Site: left antecubital; 13:44 Drug: morphine 4 mg Route: IVP; Site: left antecubital; vincenzo Signatures: Dispatcher [employer] Jose L Tyson,RN RN Edna Burns, Reg Reg lg Marco Queen, WIRELINE SUPERVISOR Alondra Mcallister,RN RN Veronica Martinez, Reg Reg hs2 The chart was reviewed and I authenticate all verbal orders and agree with the evaluation and treatment provided.Attachments: 12:48 [facility] Payment Agreement lg 03/20 02:19 T-Sheet-- Draft Copy hs2 Chart Complete MTDD
--- NOTE | 2016-03-21 15:07 | EDDOCDS ---
Physician Documentation [facility] Name: Guillermo Lobo Age: 56 yrs Sex: Male : 1960 Arrival Date: 03/19/2016 Time: 11:37 Bed I5 / M5 Private MD: Jose Alejandro Zaragoza A. Disposition: 03/19/16 13:46 Discharged to Home/Self Care. Impression: Low back pain. - Condition is Stable. - Discharge Instructions: Back Pain, Adult. - Medication Reconciliation, Local Pharmacy Hours form. - Follow up: Jose Alejandro Zaragoza; When: 2 - 3 days; Reason: Recheck today's complaints, Continuance of care. - Problem is an ongoing problem. - Symptoms are unchanged. Historical: - Allergies: BACLOFEN; Codeine Sulfate; - Home Meds: 1. clonazepam 1 mg oral tab 2 times per day 2. Cymbalta 90 mg Oral cpDR 1 cap once daily 3. Flomax 0.4 mg Oral cp24 2 caps once daily 4. lidocaine topically four times a day 5. Mevacor 40 mg Oral tab 1 tab once daily 6. Miralax 17 gram Oral pwpk 1 packet chad daily 7. pregabalin 200 mg Oral cap 1 cap 3 times per day 8. Protonix 40 mg Oral TbEC 1 tab once daily 9. oxycodone 5 mg Oral tab as needed 10. Zoloft 50 mg Oral tab 1 tab once daily 11. Robaxin 750 mg Oral tab twice a day - PMHx: Chronic Back pain; Kidney stones; Hypercholesterolemia; GERD; - PSHx: kidney stone removal; back surgery; Cholecystectomy; - Social history: Smoking status: Patient states was never smoker of tobacco. No barriers to communication noted, The patient speaks fluent [place], Speaks appropriately for age. - Family history: Not pertinent. - : The pt / caregiver states he / she is not on anticoagulants. Home medication list is obtained from the patient, [employer] import data. - Exposure Risk Screening:: None identified. Vital Signs: 03/19 11:39 BP 117 / 83; Pulse 105; Resp 18 S; Temp 97.5(O); Pulse Ox 96% on R/A; Weight 111.13 kg dd6 / 245 lbs (R); Height 6 ft. 4 in. (193.04 cm) (R); 13:32 BP 104 / 75 RA Supine (auto/reg); Pulse 77; Resp 18; Temp 97.6(O); Pulse Ox 94% on R/A; rs6 Pain 8/10; 14:04 BP 107 / 63; Pulse 90; Resp 16; Temp 97.0; jmk 11:39 Body Mass Index 29.82 (111.13 kg, 193.04 cm) dd6 MDM: 12:14 NS 0.9% 1000 ml IV at 100 mL/hr continuous ordered. ke 12:14 Ondansetron 4 mg IVP once ordered. ke 12:14 ketorolac 30 mg IVP once ordered. ke 12:14 IV Saline Lock ordered. ke 12:14 Undress patient appropriately for examination ordered. ke 12:15 Amylase Ordered. EDMS 12:15 Basic Metabolic Profile Ordered. EDMS 12:15 CBC with Diff Ordered. EDMS 12:15 Lipase Ordered. EDMS 12:15 Liver Profile Ordered. EDMS 12:15 Prothrombin Time Profile\E\INR Ordered. EDMS 12:15 Urinalysis Ordered. EDMS 12:15 CT ABD & PELVIS: No Contrast Ordered. EDMS 12:16 NOTHING BY MOUTH+DIET ordered. EDMS 12:16 Financial registration complete. lg 12:48 [facility] Payment Agreement was scanned into [employer] and attached to record. lg 13:09 Basic Metabolic Profile Reviewed. ke 13:09 CBC with Diff Reviewed. ke 13:09 Liver Profile Reviewed. ke 13:09 Urinalysis Reviewed. ke 13:09 Amylase Reviewed. ke 13:09 Lipase Reviewed. ke 13:09 Prothrombin Time Profile\E\INR Reviewed. ke 13:35 morphine 4 mg IVP once ordered. ke 03/20 02:19 T-Sheet-- Draft Copy was scanned into [employer] and attached to record. hs2 Administered Medications: 03/19 12:42 Drug: NS 0.9% 1000 ml Route: IV; Rate: 100 mL/hr; Site: left antecubital; vincenzo 12:42 Drug: Ondansetron 4 mg Route: IVP; Site: left antecubital; vincenzo 12:42 Drug: ketorolac 30 mg [ketorolac 30 mg/mL (1 mL) injection solution (1 mL)] Route: IVP; vincenzo Site: left antecubital; 13:44 Drug: morphine 4 mg Route: IVP; Site: left antecubital; vincenzo Signatures: Dispatcher [employer] Jose L Tyson,RN RN Edna Burns, Reg Reg lg Marco Queen, ORTHOPEDIC NURSE Alondra Mcallister,RN RN Veronica Martinez, Reg Reg hs2 The chart was reviewed and I authenticate all verbal orders and agree with the evaluation and treatment provided.Attachments: 12:48 [facility] Payment Agreement lg 03/20 02:19 T-Sheet-- Draft Copy hs2 Chart Complete MTDD
== END 2016-03-19 14:06 | disposition home or self-care (01) ==
LOC: M ED 11:37
DX: N20.0 Calculus of kidney (principal); M54.9 Dorsalgia, unspecified; R10.9 Unspecified abdominal pain; G89.29 Other chronic pain; Z87.442 Personal history of urinary calculi; Z90.49 Acquired absence of other specified parts of digestive tract; Z79.899 Other long term (current) drug therapy; Z88.2 Allergy status to sulfonamides; Z88.5 Allergy status to narcotic agent; Z88.8 Allergy status to other drugs, medicaments and biological substances
CPT/HCPCS: 36415; 74176; 80048; 80076; 81001; 82150; 83690; 85025; 85610; 96374; 96375; 99284; J1885; J2405

== ENCOUNTER 2016-09-27 12:09 | Emergency (ER) | payer MEDICARE ==
[~2016-09-27] VITALS: Ht 193 cm; Wt 105.5 kg
[~2016-09-27 12:09] MED LIST changes: +MORP1TAB20 PO; -MORP30TA34 PO; +OXYC-141 PO; -OXYC-299 PO; +SENN1TAB10 PO; -SENN8.6T10 PO
[2016-09-27] MEDS ORDERED: NEUR600T PO (12:39)
[2016-09-27] MEDS ORDERED: COLA100C5 PO (12:39)
[2016-09-27] MEDS ORDERED: ROXI1TAB2 PO (12:39)
[2016-09-27] MEDS ORDERED: KETOROLAC 30 MG/ML VIAL (J1885) IV ONE (13:45)
[2016-09-27] MEDS ORDERED: NS 1,000 ML IV ONE (13:45)
[2016-09-27 14:18] LABS: BASO % 0.9 % (0.0-1.0); EOS # 0.2 K/mm3 (0.0-0.50); EOS % 3.9 % (0.0-3.0); LARGE UNSTAINED CELL # 0.1 K/mm3 (0.0-0.4); LARGE UNSTAINED CELL % 1.3 % (0.0-4.0); MEAN CORPUSCULAR HEMOGLOBIN 31.3 pg (27.0-33.0); MEAN CORPUSCULAR HGB CONC 34.4 g/dl (32.0-36.5); MEAN CORPUSCULAR VOLUME 90.8 fl (80.0-96.0); MONO # 0.3 K/mm3 (0.0-0.8); MONO % 7.1 % (0.0-5.0); NEUTROPHILS # 2.9 K/mm3 (1.8-7.7); NEUTROPHILS % 64.7 % (36.0-66.0); PLATELET COUNT, AUTOMATED 251 k/mm3 (150-450); RED CELL DISTRIBUTION WIDTH 12.7 % (11.5-14.5); WHITE BLOOD COUNT 4.5 K/mm3 (4.0-10.0)
[2016-09-27 14:26] LABS: INR 0.93
--- NOTE | 2016-09-27 14:26 | REP ---
CT of the pelvis without IV and oral contrast: Comparisons 03/19/2016. There is no hydronephrosis on the right on the left. There is a nonobstructive 6 x 8 mm calculus in the lower pole of the right kidney. In addition there is a nonobstructive a 4 mm calculus in the lower pole of the right kidney. There is a 3 ml nonobstructive calculus lower pole left kidney. In addition there is a 3 mm nonobstructive calculus in the lower pole of the left kidney. There is a 2.7 cm cyst in the lower pole of the right kidney. There is chronic fibro linear scarring in the lower lobes of the right and left lungs bilaterally, unchanged. There is an old there are old healed rib fractures of the lower ribs posteriorly bilaterally, unchanged. There are pedicle screws and stabilization rods in the thoracic spine and upper lumbar spine, as previously. There is a 16 mm cyst in the right lobe of the liver. This measured 13 mm previously. The unenhanced hepatic parenchyma is otherwise homogeneous. Surgical clips are noted in the gallbladder fossa. This is unchanged. The pancreas and spleen are unremarkable. The adrenals are unremarkable. The abdominal aorta is unremarkable. There is no bowel distension or obstruction. The mesentery is unremarkable. Pelvis: The appendix cannot be identified. There is no pericecal inflammation or abscess. There is no pelvic ascites or adenopathy. The bladder is nondistended and cannot be further assessed. There is a small fat-containing left inguinal hernia. There is mild wall thickening of the sigmoid colon. This is nonspecific but is compatible with colitis in the appropriate clinical setting. Per Impression: There is no hydronephrosis. There are nonobstructing renal calculi bilaterally. No ureteral calculi. There are findings compatible with colitis in the appropriate clinical setting. No ascites. No bowel distension or obstruction. Hepatic cyst. Right renal cortical cyst. Spinal stabilization rods. Old healed fractures of the posterior ribs bilaterally. Cholecystectomy. The appendix is not identified. There is no pericecal inflammation or abscess. Signed by Herman Nielsen MD 09/27/2016 02:18 P
[2016-09-27 14:43] LABS: ALBUMIN 3.9 GM/DL (3.2-5.2); ALBUMIN/GLOBULIN RATIO 0.89 (1.00-1.93); ALKALINE PHOSPHATASE 91 U/L (45-117); ALT/SGPT 20 U/L (12-78); ANION GAP 4 MEQ/L (8-16); AST/SGOT 14 U/L (15-37); BILIRUBIN,DIRECT < 0.1 MG/DL (0.0-0.2); BILIRUBIN,TOTAL 0.5 MG/DL (0.2-1.0); BLOOD UREA NITROGEN 15 MG/DL (7-18); CALCIUM LEVEL 9.4 MG/DL (8.5-10.1); CARBON DIOXIDE LEVEL 33 MEQ/L (21-32); CHLORIDE LEVEL 103 MEQ/L (98-107); CREATININE FOR GFR 1.14 MG/DL (0.70-1.30); GLOMERULAR FILTRATION RATE > 60.0 (>56); GLUCOSE, FASTING 97 MG/DL (70-105); POTASSIUM SERUM 4.1 MEQ/L (3.5-5.1); SODIUM LEVEL 140 MEQ/L (136-145); TOTAL PROTEIN 8.3 GM/DL (6.4-8.2)
[2016-09-27] MEDS ORDERED: MORPHINE 2 MG/ML 1ML SYRINGE IV PRN (14:45)
[2016-09-27 15:49] VITALS: BP 110/76
== END 2016-09-27 16:00 | disposition home or self-care (01) ==
LOC: M ED 12:09
DX: K59.00 Constipation, unspecified (principal); E78.5 Hyperlipidemia, unspecified; K21.9 Gastro-esophageal reflux disease without esophagitis; Z87.442 Personal history of urinary calculi; Z88.5 Allergy status to narcotic agent; Z88.8 Allergy status to other drugs, medicaments and biological substances; Z79.899 Other long term (current) drug therapy
CPT/HCPCS: 74176; 80048; 80076; 81001; 83690; 85025; 85610; 85730; 96374; 96375; 99283; J1885

== ENCOUNTER → 2017-02-22 | Outpatient (CLI) | payer MEDICARE ==
[~2017-02-22] MED LIST changes: +COLA100C5 PO; +METH5TA PO; +NEUR600T PO; +ROXI1TAB2 PO
--- NOTE | 2017-02-22 09:12 | REP ---
Abdominal right upper upper quadrant ultrasound for follow-up of an hepatic cyst.. The patient has a cyst in the dome of the liver that measured 13 mm on the previous ultrasound dated 12/01/2014 and measured [address] dated 09/27/2016. On the study today the cyst measures 16 mm. It has a septated appearance. This is unchanged from the prior ultrasound. The hepatic parenchyma is otherwise homogeneous and unchanged. The visualized portion of the pancreatic head is unremarkable and unchanged. The patient has had an interim cholecystectomy. There is no intrahepatic or extrahepatic biliary duct dilatation, the common duct measures 8.3 mm in diameter. There is a right renal 3.3 cm lower pole cyst. This is unchanged. There are multiple small echogenic foci within the right kidney compatible with small right renal calculi. There is no hydronephrosis. No solid renal masses identified. Impression: There is a cyst in the dome of the liver measuring 16 mm having a septated appearance, not significantly changed from the prior studies. There are small nonobstructive right renal calculi. There is no hydronephrosis. There is a right renal cortical cyst, unchanged. Signed by Herman Nielsen MD 02/22/2017 09:04 A
== END ==
LOC: M RAD 07:40
PROVIDERS: ATTEND Physician Assistant Medical
DX: N20.0 Calculus of kidney (principal); K76.89 Other specified diseases of liver

== ENCOUNTER 2017-03-15 09:28 | Day surgery (SDC) | payer MEDICARE ==
[2017-03-15] MEDS: NS 1,000 ML IV (09:40)
[2017-03-15] MEDS ORDERED: PROPOFOL 200 MG/20 ML VIAL As Ordered (11:59)
== END 2017-03-15 11:56 | disposition home or self-care (01) ==
LOC: M OPP 09:28
DX: R10.84 Generalized abdominal pain (principal); R93.3 Abnormal findings on diagnostic imaging of other parts of digestive tract; D12.3 Benign neoplasm of transverse colon; K64.8 Other hemorrhoids; Q43.8 Other specified congenital malformations of intestine; N40.0 Benign prostatic hyperplasia without lower urinary tract symptoms; F41.9 Anxiety disorder, unspecified; F32.9 Major depressive disorder, single episode, unspecified; F03.90 Unspecified dementia, unspecified severity, without behavioral disturbance, psychotic disturbance, mood disturbance, and anxiety; I10 Essential (primary) hypertension; K58.9 Irritable bowel syndrome, unspecified; K21.9 Gastro-esophageal reflux disease without esophagitis; M17.0 Bilateral primary osteoarthritis of knee; Z79.891 Long term (current) use of opiate analgesic; Z79.899 Other long term (current) drug therapy; Z88.5 Allergy status to narcotic agent; Z88.8 Allergy status to other drugs, medicaments and biological substances; Z96.0 Presence of urogenital implants; Z87.19 Personal history of other diseases of the digestive system; Z87.828 Personal history of other (healed) physical injury and trauma
CPT/HCPCS: 45385

== ENCOUNTER → 2017-04-12 | Outpatient (CLI) | payer MEDICARE ==
[2017-04-12 13:46] LABS: BASO % 0.7 % (0.0-1.0); EOS # 0.2 10^3/uL (0.0-0.50); EOS % 4.4 % (0.0-3.0); HEMATOCRIT 45.8 % (42.0-52.0); IMMATURE GRANULOCYTE % 0.2 % (0-0); LYMPH # 1.6 10^3/uL (1.5-4.5); LYMPH % 34.9 % (24.0-44.0); MEAN CORPUSCULAR HEMOGLOBIN 30.1 pg (27.0-33.0); MEAN CORPUSCULAR HGB CONC 32.8 g/dl (32.0-36.5); MONO # 0.4 10^3/uL (0.0-0.8); MONO % 9.2 % (0.0-5.0); NEUTROPHILS # 2.3 10^3/uL (1.8-7.7); NEUTROPHILS % 50.6 % (36.0-66.0); PLATELET COUNT, AUTOMATED 280 10^3/uL (150-450); RED BLOOD COUNT 4.98 10^6/uL (4.30-6.10); RED CELL DISTRIBUTION WIDTH 12.3 % (11.5-14.5); WHITE BLOOD COUNT 4.6 10^3/uL (4.0-10.0)
[2017-04-12 14:09] LABS: ALBUMIN/GLOBULIN RATIO 1.08 (1.00-1.93); ALKALINE PHOSPHATASE 76 U/L (45-117); ALT/SGPT 23 U/L (12-78); ANION GAP 5 MEQ/L (8-16); AST/SGOT 15 U/L (7-37); BILIRUBIN,TOTAL 0.4 MG/DL (0.2-1.0); BLOOD UREA NITROGEN 22 MG/DL (7-18); CARBON DIOXIDE LEVEL 34 MEQ/L (21-32); CHLORIDE LEVEL 103 MEQ/L (98-107); CHOLESTEROL LEVEL 248 MG/DL (<200); CHOLESTEROL RISK RATIO 5.636 (<5); CREATININE FOR GFR 1.16 MG/DL (0.70-1.30); GLOMERULAR FILTRATION RATE > 60.0 (>56); GLUCOSE, FASTING 107 MG/DL (70-100); HDL CHOLESTEROL 44 MG/DL (>40); NON-HDL-C 204 MG/DL; POTASSIUM SERUM 4.5 MEQ/L (3.5-5.1); SODIUM LEVEL 142 MEQ/L (136-145); TOTAL PROTEIN 7.7 GM/DL (6.4-8.2); TRIGLYCERIDES LEVEL 345 MG/DL (<150)
== END ==
LOC: M SMT 08:12
DX: E78.5 Hyperlipidemia, unspecified (principal)
CPT/HCPCS: 80053

== ENCOUNTER → 2017-08-01 | Outpatient (CLI) | payer MEDICARE ==
[2017-08-01 17:49] LABS: PSA SCREENING 0.88 NG/ML (< 4.0)
== END ==
LOC: M SMT 10:29
DX: Z12.5 Encounter for screening for malignant neoplasm of prostate (principal); N40.0 Benign prostatic hyperplasia without lower urinary tract symptoms
CPT/HCPCS: G0103

== ENCOUNTER 2017-08-25 19:39 | Emergency (ER) | payer MEDICARE ==
[2017-08-25] MEDS: diazePAM 5 MG TAB PO ×2 (22:01→23:54)
[2017-08-25] MEDS: KETOROLAC 30 MG/ML VIAL (J1885) IV (22:02)
[2017-08-25 22:27] LABS: BASO % 0.5 % (0.0-1.0); EOS # 0.2 10^3/uL (0.0-0.50); EOS % 2.7 % (0.0-3.0); HEMATOCRIT 50.2 % (42.0-52.0); HEMOGLOBIN 16.5 g/dl (13.5-17.5); IMMATURE GRANULOCYTE % 0.5 % (0-3.0); LYMPH # 2.3 10^3/uL (1.5-4.5); LYMPH % 29.6 % (24.0-44.0); MEAN CORPUSCULAR HEMOGLOBIN 29.5 pg (27.0-33.0); MEAN CORPUSCULAR HGB CONC 32.9 g/dl (32.0-36.5); MEAN CORPUSCULAR VOLUME 89.8 fl (80.0-96.0); MONO # 0.6 10^3/uL (0.0-0.8); MONO % 8.1 % (0.0-5.0); NEUTROPHILS # 4.6 10^3/uL (1.8-7.7); NEUTROPHILS % 58.6 % (36.0-66.0); PLATELET COUNT, AUTOMATED 296 10^3/uL (150-450); RED BLOOD COUNT 5.59 10^6/uL (4.30-6.10); WHITE BLOOD COUNT 7.8 10^3/uL (4.0-10.0)
[2017-08-25 22:30] LABS: APPEARANCE, URINE CLEAR (CLEAR); BACTERIA, URINE AUTO NEGATIVE (NEGATIVE); BILIRUBIN, URINE AUTO 1+ (NEGATIVE); BLOOD, URINE BLOOD NEGATIVE (NEGATIVE); COLOR, URINE YELLOW (YELLOW); GLUCOSE, URINE (UA) AUTO NEGATIVE (NEGATIVE); KETONE, URINE AUTO NEGATIVE (NEGATIVE); LEUKOCYTE ESTERASE, URINE AUTO NEGATIVE (NEGATIVE); NITRITE, URINE AUTO NEGATIVE (NEGATIVE); PROTEIN, URINE AUTO NEGATIVE (NEGATIVE); RBC, URINE AUTO 2 /HPF (0-3); SPECIFIC GRAVITY URINE AUTO 1.014 (1.002-1.035); SQUAMOUS EPITHELIAL CELL UR AU 0 /HPF (0-6); UROBILINOGEN, URINE AUTO 0.2 mg/dL (0.0-2.0); WBC, URINE AUTO 1 /HPF (0-3)
[2017-08-25 22:47] LABS: ALBUMIN 4.3 GM/DL (3.2-5.2); ALKALINE PHOSPHATASE 98 U/L (45-117); ALT/SGPT 21 U/L (12-78); ANION GAP 4 MEQ/L (8-16); AST/SGOT 14 U/L (7-37); BILIRUBIN,TOTAL 0.6 MG/DL (0.2-1.0); BLOOD UREA NITROGEN 20 MG/DL (7-18); CALCIUM LEVEL 9.3 MG/DL (8.5-10.1); CARBON DIOXIDE LEVEL 34 MEQ/L (21-32); CHLORIDE LEVEL 101 MEQ/L (98-107); CREATININE FOR GFR 1.24 MG/DL (0.70-1.30); GLOMERULAR FILTRATION RATE > 60.0 (>56); GLUCOSE, FASTING 93 MG/DL (70-100); POTASSIUM SERUM 4.3 MEQ/L (3.5-5.1); SODIUM LEVEL 139 MEQ/L (136-145); TOTAL PROTEIN 8.6 GM/DL (6.4-8.2)
[2017-08-25] MEDS: MAGNESIUM CITRATE 300 ML BTL PO (23:55)
== END 2017-08-25 23:58 | disposition home or self-care (01) ==
LOC: M ED 19:39
DX: M54.9 Dorsalgia, unspecified (principal); G89.29 Other chronic pain; K59.00 Constipation, unspecified; Z87.442 Personal history of urinary calculi; E78.5 Hyperlipidemia, unspecified; K57.92 Diverticulitis of intestine, part unspecified, without perforation or abscess without bleeding; Z88.0 Allergy status to penicillin; Z88.5 Allergy status to narcotic agent; Z88.8 Allergy status to other drugs, medicaments and biological substances; Z79.899 Other long term (current) drug therapy
CPT/HCPCS: J1885

== ENCOUNTER → 2017-10-09 | Outpatient (CLI) | payer MEDICARE ==
[~2017-10-09] MED LIST changes: -ACET500C PO; -BISA10SU4 PR; -CLON0.2T PO; -CLON0.5T PO; -COLA100C5 PO; -CYCL5TA PO; -DOCU10CA PO; -DULC5TAB PO; -DULO30CA PO; -FLOM5CAP PO; +GASTROGRAFIN SOLUTION 30ML (Q9963) As Ordered; -HYDR-3713 PO; +ISOVUE-370 76% 100ML VIAL (Q9967) As Ordered; -LIDO2.5C15 TOP; -LINZ145C PO; -LYRI200C PO; -LYRI75CA PO; -METH5TA PO; -MEVA40TA PO; -MIRA3350 PO; -MORP-38 PO; -MORP1TAB20 PO; -MYLI40DR PO; -NEUR600T PO; -OXYC-141 PO; -OXYC5CAP28 PO; -PROT1TAB2 PO; -ROBA750T4 PO; -ROXI1TAB2 PO; -SENN1TAB10 PO; -SOMA350T PO; -TIZA4CAP3 PO; -VICO5TAB16 PO; -XARE15TA PO; -ZOFR20TA PO; -ZOLO50TA PO; -[UNRECOGNIZED DRUG - CODE] TOP; -[UNRECOGNIZED DRUG - CODE] TOP; -flexeril PO
== END ==
LOC: M RAD 10:53
DX: N28.1 Cyst of kidney, acquired (principal); N20.0 Calculus of kidney; R10.11 Right upper quadrant pain; Q44.6 Cystic disease of liver; K59.00 Constipation, unspecified
CPT/HCPCS: Q9963

== ENCOUNTER → 2018-01-08 | Outpatient (CLI) | payer MEDICARE | LOC: M SLEEP HO 09:44 | DX: R06.81 Apnea, not elsewhere classified (principal) ==

== ENCOUNTER 2018-01-28 18:26 | Emergency (ER) | payer MEDICARE ==
[2018-01-28] MEDS: METHOCARBAMOL 750 MG TAB PO (19:56)
[2018-01-28] MEDS: GABAPENTIN 300 MG CAP PO (19:56)
[2018-01-28 20:08] LABS: KETONE, URINE AUTO RFX NEGATIVE (NEGATIVE); LEUKOCYTE ESTERASE UR AUTO RFX NEGATIVE (NEGATIVE); NITRITE, URINE AUTO RFX NEGATIVE (NEGATIVE); RBC, URINE AUTO RFX 2 /HPF (0-3); SPECIFIC GRAVITY UR AUTO RFX 1.009 (1.002-1.035); SQUAM EPITHELIAL CELL UR AURFX 0 /HPF (0-6); WBC, URINE AUTO RFX 0 /HPF (0-3)
[2018-01-28 20:12] LABS: BASO % 0.4 % (0.0-1.0); EOS # 0.2 10^3/uL (0.0-0.50); HEMATOCRIT 44.5 % (42.0-52.0); HEMOGLOBIN 14.8 g/dl (13.5-17.5); IMMATURE GRANULOCYTE % 0.4 % (0-3.0); LYMPH # 1.6 10^3/uL (1.5-4.5); LYMPH % 23.5 % (24.0-44.0); MEAN CORPUSCULAR HEMOGLOBIN 31.2 pg (27.0-33.0); MEAN CORPUSCULAR HGB CONC 33.3 g/dl (32.0-36.5); MEAN CORPUSCULAR VOLUME 93.7 fl (80.0-96.0); MONO # 0.5 10^3/uL (0.0-0.8); MONO % 7.6 % (0.0-5.0); NEUTROPHILS # 4.6 10^3/uL (1.8-7.7); NEUTROPHILS % 65.1 % (36.0-66.0); PLATELET COUNT, AUTOMATED 269 10^3/uL (150-450); RED BLOOD COUNT 4.75 10^6/uL (4.30-6.10); RED CELL DISTRIBUTION WIDTH 12.3 % (11.5-14.5)
[2018-01-28] MEDS: GASTROGRAFIN SOLUTION 30ML PO ×2 (20:23→20:55)
[2018-01-28 20:29] LABS: ANION GAP 4 MEQ/L (8-16); BLOOD UREA NITROGEN 22 MG/DL (7-18); CALCIUM LEVEL 8.8 MG/DL (8.5-10.1); CARBON DIOXIDE LEVEL 34 MEQ/L (21-32); CHLORIDE LEVEL 102 MEQ/L (98-107); CREATININE FOR GFR 1.33 MG/DL (0.70-1.30); GLOMERULAR FILTRATION RATE 58.8 (>56); GLUCOSE, FASTING 93 MG/DL (70-100); POTASSIUM SERUM 4.4 MEQ/L (3.5-5.1); SODIUM LEVEL 140 MEQ/L (136-145)
== END 2018-01-28 23:11 | disposition home or self-care (01) ==
LOC: M ED 18:26
DX: R10.32 Left lower quadrant pain (principal); R10.12 Left upper quadrant pain; R10.11 Right upper quadrant pain; R10.31 Right lower quadrant pain; M54.9 Dorsalgia, unspecified; G89.29 Other chronic pain; Z87.81 Personal history of (healed) traumatic fracture; I10 Essential (primary) hypertension; E78.5 Hyperlipidemia, unspecified; K21.9 Gastro-esophageal reflux disease without esophagitis; N40.0 Benign prostatic hyperplasia without lower urinary tract symptoms; K57.92 Diverticulitis of intestine, part unspecified, without perforation or abscess without bleeding; Z88.1 Allergy status to other antibiotic agents; Z88.8 Allergy status to other drugs, medicaments and biological substances; Z88.5 Allergy status to narcotic agent; Z79.899 Other long term (current) drug therapy; Z79.1 Long term (current) use of non-steroidal anti-inflammatories (NSAID); Z91.81 History of falling
CPT/HCPCS: Q9963

== ENCOUNTER 2018-09-13 17:06 | Emergency (ER) | payer MEDICARE ==
[~2018-09-13] VITALS: Ht 193 cm; Wt 104.5 kg
[~2018-09-13 17:06] MED LIST changes: +ACET500C PO; +BISA10SU4 PR; +BISAC5TA PO; +CLON0.2T PO; +CLON0.5T8 PO; +COLA100C5 PO; +CYCL5TAB5 PO; +DOCU10CA PO; +DULC5TAB PO; +DULO30CA9 PO; +FLOM0.4C39 PO; -GASTROGRAFIN SOLUTION 30ML (Q9963) As Ordered; +HYDR-3713 PO; -ISOVUE-370 76% 100ML VIAL (Q9967) As Ordered; +LIDO2.5C15 TOP; +LINZ145C PO; +LYRI200C PO; +LYRI75CA PO; +METH5TA PO; +MEVA40TA PO; +MIRA3350 PO; +MORP-38 PO; +MORP1TAB20 PO; +MYLI40DR PO; +NAPR-837 PO; +NEUR600T PO; +OXYC-141 PO; +OXYC-517 PO; +OXYC5CAP28 PO; +PROT1TAB2 PO; +ROBA750T4 PO; +ROXI1TAB2 PO; +SENN1TAB10 PO; +SOMA350T PO; +TIZA4CAP PO; +VALI10TA PO; +VICO5TAB17 PO; +XARE15TA PO; +ZOFR4TAB16 PO; +ZOLO50TA PO; +[UNRECOGNIZED DRUG - CODE] TOP; +[UNRECOGNIZED DRUG - CODE] TOP; +flexeril PO
[2018-09-13] MEDS ORDERED: NS 1,000 ML IV ONE (17:30)
[2018-09-13] MEDS ORDERED: MORPHINE 4 MG/ML 1ML VIAL/SYRINGE (J2270) IV ONE (17:30)
[2018-09-13 17:58] LABS: BASO % 0.7 % (0.0-1.0); EOS # 0.2 10^3/uL (0.0-0.50); EOS % 3.3 % (0.0-3.0); HEMATOCRIT 47.9 % (42.0-52.0); HEMOGLOBIN 15.8 g/dl (13.5-17.5); LYMPH # 1.5 10^3/uL (1.5-4.5); LYMPH % 25.2 % (24.0-44.0); MEAN CORPUSCULAR HEMOGLOBIN 31.7 pg (27.0-33.0); MEAN CORPUSCULAR VOLUME 96.2 fl (80.0-96.0); MONO # 0.5 10^3/uL (0.0-0.8); MONO % 7.6 % (0.0-5.0); NEUTROPHILS # 3.8 10^3/uL (1.8-7.7); NEUTROPHILS % 62.9 % (36.0-66.0); PLATELET COUNT, AUTOMATED 259 10^3/uL (150-450); RED BLOOD COUNT 4.98 10^6/uL (4.30-6.10); WHITE BLOOD COUNT 6.1 10^3/uL (4.0-10.0)
[2018-09-13 18:37] LABS: ALBUMIN 4.2 GM/DL (3.2-5.2); BILIRUBIN,DIRECT 0.1 MG/DL (0.0-0.2); BILIRUBIN,TOTAL 0.7 MG/DL (0.2-1.0); TOTAL PROTEIN 7.7 GM/DL (6.4-8.2)
[2018-09-13] MEDS ORDERED: ISOVUE-370 76% 100ML VIAL (Q9967) As Ordered ONE (19:45)
[2018-09-13] MEDS ORDERED: KETOROLAC 30 MG/ML VIAL (J1885) IV ONE (19:45)
--- NOTE | 2018-09-13 19:55 | REPVR ---
EXAM: US Retroperitoneal Complete. EXAM DATE/TIME: 09/13/2018 6:56 PM CLINICAL HISTORY: 58 years old, male; Abdominal pain; Flank; Right upper quadrant (ruq); Additional info: R flank pain TECHNIQUE: Imaging protocol: Real-time ultrasound of the retroperitoneum with image documentation. Complete exam. COMPARISON: RENAL US 08/25/2017 9:27 PM FINDINGS: Right kidney: The right kidney measures 12.1 cm in length. No hydronephrosis. There is a simple cyst in the lower pole measuring 3.3 cm. Left kidney: The left kidney measures 9.5 cm in length; the left kidney was poorly visualized due to shadowing bowel gas. No hydronephrosis. Bladder: The bladder is only partially distended. Bilateral ureteral jets were visualized. IMPRESSION: 1. Limited visualization of the left kidney. 2. No evidence of hydronephrosis. Electronically signed by: Florecita Conway On 09/13/2018 19:55:16 PM
--- NOTE | 2018-09-13 20:35 | REPVR ---
EXAM: CT Abdomen and Pelvis With Contrast EXAM DATE/TIME: 09/13/2018 7:50 PM CLINICAL HISTORY: 58 years old, male; Abdominal pain; Localized; Right; Additional info: Right abdominal pain, no hydronephrosis TECHNIQUE: Imaging protocol: Axial computed tomography images of the abdomen and pelvis with intravenous contrast. Coronal and sagittal reformatted images were created and reviewed. Radiation optimization: All CT scans at this facility use at least one of these dose optimization techniques: automated exposure control; mA and/or kV adjustment per patient size (includes targeted exams where dose is matched to clinical indication); or iterative reconstruction. Contrast material: ISOVUE 370; Contrast volume: 100 ml; Contrast route: IV; COMPARISON: CT ABD PELVIS W/O FOL BY WIT 10/09/2017 12:44 PM FINDINGS: Lungs: The lower lobes demonstrate subsegmental atelectasis. Heart: Mild cardiomegaly. Liver: A simple cyst in the right hepatic lobe measures 1.5 cm. Gallbladder and bile ducts: There are cholecystectomy clips in the gallbladder fossa. Mild prominence of the central hepatic bile ducts may be related to postcholecystectomy state. Pancreas: The pancreas demonstrates partial fatty replacement. Spleen: Normal. No splenomegaly. Adrenals: Normal. No mass. Kidneys and ureters: There is a simple cyst in the lower pole of the right kidney measuring 2.6 cm. Nonobstructing calculus in the lower pole of the right kidney is again demonstrated. Previously seen calculus in the lower pole of the left kidney is no longer identified. No hydronephrosis or hydroureter. Stomach and bowel: There is colonic diverticulosis without evidence of diverticulitis. No obstruction. Segmental areas of apparent wall thickening in the hepatic flexure region, probably related to incomplete distention or spasm. Appendix: A normal appendix is seen. Intraperitoneal space: No free air. No significant fluid collection. Vasculature: Unremarkable for age. No abdominal aortic aneurysm. Lymph nodes: No pathologically enlarged lymph nodes seen. Bladder: The appearance of mild bladder wall thickening may be related to underdistention. Reproductive: Unremarkable as visualized. Bones/joints: No acute fracture seen. There are old rib fractures. T8, T11, T12 and L4 vertebral body height loss, as before. The degree of osseous mineralization appears advanced for age. Prior thoracolumbar posterolateral fusion and posterior pedicle screw fixation. Mild to moderate upper lumbar dextroconvex scoliosis. Soft tissues: There is a small fat containing left inguinal hernia. IMPRESSION: No acute abnormality seen. Electronically signed by: Florecita Conway On 09/13/2018 20:35:46 PM
[2018-09-13 21:11] VITALS: BP 108/53
== END 2018-09-13 21:21 | disposition home or self-care (01) ==
LOC: M ED 17:06
DX: R10.11 Right upper quadrant pain (principal); R10.31 Right lower quadrant pain; I10 Essential (primary) hypertension; N40.0 Benign prostatic hyperplasia without lower urinary tract symptoms; E78.5 Hyperlipidemia, unspecified; K21.9 Gastro-esophageal reflux disease without esophagitis; Z87.19 Personal history of other diseases of the digestive system; Z87.442 Personal history of urinary calculi; Z79.899 Other long term (current) drug therapy; Z88.5 Allergy status to narcotic agent; Z88.8 Allergy status to other drugs, medicaments and biological substances
CPT/HCPCS: 74177; 76775; 80047; 80076; 81001; 83690; 85025; 96361; 96374; 96375; 99284; J1885; J2270; Q9967

== ENCOUNTER → 2018-10-14 | Outpatient (CLI) | payer MEDICARE ==
[~2018-10-14] MED LIST changes: +LIQUID POLIBAR PLUS 105% w/v 1900ML BTL As Ordered ONE; -MORP-38 PO; +MORP-69 PO
--- NOTE | 2018-10-14 20:13 | REP ---
Examination Requested: Barium and Air contrast Reason For Exam: Right upper quadrant abdominal pain, redundant colon The procedure was performed by CHINYERE Wu, under the direct supervision of Dr. Alicea. The images were reviewed with Dr. Alicea. The ventilator specialist film shows no organomegaly, or pathological masses. The intestinal gas pattern is unremarkable. Liquid barium and air were instilled into the colon and retrograde flow of the barium air mixture. The colon is normal in position and contour. There are multiple diverticula scattered throughout the sigmoid and descending colon. Postradiation bulla is unremarkable throughout. There is free flow of contrast to the cecum, and the appendix is visualized. The colonic mucosal pattern is normal in course and caliber. There is no annular constricting lesion identified. There are no polypoid masses identified. Impression: 1. Multiple diverticula of the sigmoid and descending colon. 1.3 minutes of fluoroscopy time was utilized for this procedure. Some fluoroscopic images are performed with last image hold technology. These images require no additional radiation. Reviewed by CHINYERE Morejon 10/14/2018 05:08 P Electronically Signed by Herman Alicea MD 10/14/2018 08:05 P
== END ==
LOC: M RAD 08:55
PROVIDERS: ATTEND Physician Assistant Medical
DX: R10.11 Right upper quadrant pain (principal); Q43.8 Other specified congenital malformations of intestine

== ENCOUNTER → 2019-01-14 | Outpatient (CLI) | payer MEDICARE ==
[~2019-01-14] MED LIST changes: -LIQUID POLIBAR PLUS 105% w/v 1900ML BTL As Ordered ONE
[2019-01-14 13:53] LABS: HEMATOCRIT 49.6 % (42.0-52.0); HEMOGLOBIN 15.6 g/dl (13.5-17.5); MEAN CORPUSCULAR HEMOGLOBIN 30.4 pg (27.0-33.0); MEAN CORPUSCULAR HGB CONC 31.5 g/dl (32.0-36.5); MEAN CORPUSCULAR VOLUME 96.5 fl (80.0-96.0); PLATELET COUNT, AUTOMATED 286 10^3/uL (150-450); RED BLOOD COUNT 5.14 10^6/uL (4.30-6.10); WHITE BLOOD COUNT 5.5 10^3/uL (4.0-10.0)
[2019-01-14 14:05] LABS: ALBUMIN 4.2 GM/DL (3.2-5.2); ALT/SGPT 17 U/L (12-78); BILIRUBIN,TOTAL 0.4 MG/DL (0.2-1.0); BLOOD UREA NITROGEN 25 MG/DL (7-18); CARBON DIOXIDE LEVEL 32 MEQ/L (21-32); CHLORIDE LEVEL 105 MEQ/L (98-107); CHOLESTEROL LEVEL 245 MG/DL (<200); CHOLESTEROL RISK RATIO 4.803 (<5); CREATININE FOR GFR 1.09 MG/DL (0.70-1.30); GLOMERULAR FILTRATION RATE > 60.0 (>56); GLUCOSE, FASTING 107 MG/DL (70-100); HDL CHOLESTEROL 51 MG/DL (>40); LDL CHOLESTEROL 153 MG/DL (<100); NON-HDL-C 194 MG/DL; POTASSIUM SERUM 4.1 MEQ/L (3.5-5.1); SODIUM LEVEL 142 MEQ/L (136-145); TOTAL PROTEIN 7.6 GM/DL (6.4-8.2); TRIGLYCERIDES LEVEL 204 MG/DL (<150)
== END ==
LOC: M SMT 08:38
PROVIDERS: ATTEND Family Medicine
DX: E78.5 Hyperlipidemia, unspecified (principal)

== ENCOUNTER 2019-02-11 15:31 | Emergency (ER) | payer MEDICARE ==
[~2019-02-11] VITALS: Ht 193 cm; Wt 105.0 kg
[~2019-02-11 15:31] MED LIST changes: +CLON0.5T2 PO; -CLON0.5T8 PO
[2019-02-11] MEDS ORDERED: PERCOCET 5MG/325MG TAB PO ONE (17:00)
[2019-02-11] MEDS ORDERED: IBUPROFEN 800 MG TAB PO ONE (17:00)
--- NOTE | 2019-02-11 18:08 | REPVR ---
PROCEDURE INFORMATION: Exam: CT Thoracic Spine Without Contrast Exam date and time: 02/11/2019 4:49 PM Age: 58 years old Clinical history: Injury or trauma; Fall; Initial encounter; Blunt trauma (contusions or hematomas); Prior surgery; Surgery date: 6+ months; Additional info: Fall on ice, vertebral tenderness TECHNIQUE: Imaging protocol: Computed tomography images of the thoracic spine without contrast. Radiation optimization: All CT scans at this facility use at least one of these dose optimization techniques: automated exposure control; mA and/or kV adjustment per patient size (includes targeted exams where dose is matched to clinical indication); or iterative reconstruction. COMPARISON: CT Spine,thoracic w/o contrast 07/20/2014 1:42 PM FINDINGS: Vertebrae: Posterior thoracic spinal fusion hardware spans T4-L2. The hardware appears intact. There is similar appearing exaggerated thoracic kyphosis with vertebral height loss and degenerative disc disease at several levels, most pronounced with partial fusion at T8-9. The bones appear demineralized. No acute fracture or traumatic malalignment. No acute thoracic spine fracture or traumatic malalignment. Other bones/joints: Multiple old rib fractures. Soft tissues: Nonobstructing 5 mm and 2 mm right renal nephroliths noted. IMPRESSION: 1. No acute thoracic spine fracture or traumatic malalignment. 2. T4-L2 posterior fusion hardware appears intact. Electronically signed by: Jorge Montague On 02/11/2019 18:07:44 PM
--- NOTE | 2019-02-11 18:11 | REPVR ---
PROCEDURE INFORMATION: Exam: CT Lumbar Spine Without Contrast Exam date and time: 02/11/2019 4:49 PM Age: 58 years old Clinical history: Injury or trauma; Fall; Initial encounter; Blunt trauma (contusions or hematomas); Prior surgery; Surgery date: 6+ months; Additional info: Fall on ice, vertebral tenderness TECHNIQUE: Imaging protocol: Computed tomography images of the lumbar spine without contrast. Radiation optimization: All CT scans at this facility use at least one of these dose optimization techniques: automated exposure control; mA and/or kV adjustment per patient size (includes targeted exams where dose is matched to clinical indication); or iterative reconstruction. COMPARISON: No relevant prior studies available. FINDINGS: Vertebrae: Posterior thoracic spinal fusion hardware spans T4-L2 with multilevel old decompression changes. The hardware appears intact. The bones appear demineralized. No acute thoracic spine fracture or traumatic malalignment. Other bones/joints: Multiple old rib and transverse process fractures. Kidneys and ureters: Nonobstructing 5 mm and 2 mm right renal nephroliths noted. Vasculature: Mild aortic and branch vessel atherosclerosis. IMPRESSION: 1. No acute lumbar spine fracture or traumatic malalignment. 2. T4-L2 posterior fusion hardware appears intact. Electronically signed by: Jorge Montague On 02/11/2019 18:11:07 PM
[2019-02-11] MEDS ORDERED: PRED20TA PO (18:14)
[2019-02-11 18:20] VITALS: BP 119/57
== END 2019-02-11 18:33 | disposition home or self-care (01) ==
LOC: M ED 15:31
DX: S39.012A Strain of muscle, fascia and tendon of lower back, initial encounter (principal); W00.9XXA Unspecified fall due to ice and snow, initial encounter; Y92.9 Unspecified place or not applicable; Y93.9 Activity, unspecified; M62.830 Muscle spasm of back; G89.29 Other chronic pain; M54.5 Low back pain; E78.5 Hyperlipidemia, unspecified; I10 Essential (primary) hypertension; K21.9 Gastro-esophageal reflux disease without esophagitis; K57.92 Diverticulitis of intestine, part unspecified, without perforation or abscess without bleeding; Z79.899 Other long term (current) drug therapy; Z87.81 Personal history of (healed) traumatic fracture; Z88.8 Allergy status to other drugs, medicaments and biological substances; Z98.1 Arthrodesis status

== ENCOUNTER 2019-02-18 11:13 | Emergency (ER) | payer MEDICARE ==
[~2019-02-18] VITALS: Ht 193 cm; Wt 102.6 kg
[~2019-02-18 11:13] MED LIST changes: +PRED20TA PO
--- NOTE | 2019-02-18 13:15 | REP ---
O three views abdomen: 02/18/2019. Indication: Abdominal pain. Comparison: CT dated 09/13/2018. Findings: Increased fecal material is noted within the right colon. No air-fluid levels are present within the bowel. Stabilization hardware of the thoracolumbar spine is present. The hardware appears intact. There is a dextroscoliotic curve of the lumbar spine with the convexity centered at L3. There is no free intraperitoneal air. Impression: Findings suggest constipation. No obstruction. Electronically Signed by Jack Bob DO 02/18/2019 01:06 P
[2019-02-18] MEDS ORDERED: TIZA4TAB4 PO (13:36)
[2019-02-18 13:47] VITALS: BP 103/69
== END 2019-02-18 13:49 | disposition home or self-care (01) ==
LOC: M ED 11:13
DX: K59.00 Constipation, unspecified (principal); M62.830 Muscle spasm of back; Z79.52 Long term (current) use of systemic steroids; Z79.899 Other long term (current) drug therapy; Z88.5 Allergy status to narcotic agent; Z88.8 Allergy status to other drugs, medicaments and biological substances

== ENCOUNTER → 2019-02-20 | Outpatient (CLI) | payer MEDICARE ==
[~2019-02-20] MED LIST changes: +TIZA4TAB4 PO
--- NOTE | 2019-03-06 02:42 | ECWPNPC ---
PATIENT NAME: BRENDA CHEN : 1960 GENDER: MALE VISIT DATE: 02/20/2019 DISCHARGE DATE: 02/20/19 1416 VISIT LOCKED DATE TIME: PHYSICIAN: JOSESITO DESIR RESOURCE: JOSESITO DESIR REASON FOR APPOINTMENT 1. BACK PAIN AND CHRONIC PAIN HISTORY OF PRESENT ILLNESS NEW PATIENT CONSULT: 58 Y/O REFERR[address] BY DR. BURGER EVALUATE CHRONIC RIGHT THORACIC PAIN.HISTORY THORACIC VERTEBRAL CRUSH INJURY AFTER FALLING OFF ROOF IN 2013.HISTORY OF MULTIPLE SURGERIES POST INJURY.REPORTING AN INCREASE IN MUSCLE SPASMS OVER THE PAST YEAR.TIZANIDINE TRIAL RECENTLY CAUSED SEVERE SIDE EFFECTS.HAS BEEN ON OXYCODONE 5MG FOR SEVERAL YEARS TAKING APPROXIMATLEY 3 TABLETS PER DAY WITH SOME IMPROVEMENT IN PAIN.STATES THEY REDUCED MAXIMUM TO 2 PER DAY OVER THE PAST FEW MONTHS AND PAIN HAS ESCALATED.RATING PAIN VAS 10/10 PAST 6 MONTHS.REPORTS THAT PAIN IN RIGHT SIDE MID AXILLARY/BACK INCREASES WHEN HE HAS A FULL BOWEL. ACCOMPANIES PATIENT IN EXAM ROOM.HAS RESPONDED WELL TO TPI IN THE PAST.DISCUSSED MEDIATION AND TREATMENT OPTIONS. WHEN DID YOUR PAIN FIRST START? . BRIEFLY DESCRIBE HOW YOUR PAIN STARTED? . HOW DOES YOUR PAIN CHANGE WITH TIME? . DOES YOUR PAIN AWAKEN YOU FROM SLEEP? . HOW MANY HOURS OF SLEEP DO YOU NORMALLY GET? . ANY DIAGNOSTIC TESTING? . FACILITY WHERE TESTS WERE DONE? ____. PAIN TREATMENT TREATMENT YES CANCER HAVE YOU EVER HAD ANY TYPE OF CANCER?NO NO. PAIN SCREENING: PATIENT HAS A COMPLAINT OF ACUTE OR CHRONIC PAIN :YES FALL RISK SCREENING: SCREENING : NO FALLS IN THE PAST YEAR. MALONEY INVENTORY: QUESTIONNAIRE ASSESSEDTBD SCORE VALUE CALCULATED TBD CURRENT MEDICATIONS TAKING BISACODYL 10 MG SUPPOSITORY 1 SUPPOSITORY NEEDED RECTAL ONCE A DAY, NOTES: YESTRDAY AM TAKING METHOCARBAMOL 750 MG TABLET 2 TABLETS ORALLY THREE TIMES A DAY TAKING COLACE 100 MG CAPSULE 1 CAPSULE NEEDED ORALLY ONCE A DAY TAKING BISACODYL 5 MG 2 TAB ORALLY DAILY TAKING GABAPENTIN 600 MG TABLET 2 TABLETS ORALLY THREE TIMES A DAY TAKING GAS-X EXTRA STRENGTH 125 MG TABLET CHEWABLE 1 TABLET AFTER MEALS AND AT BEDTIME NEEDED ORALLY THREE TIMES A DAY, NOTES: NEEDS TAKING SALONPAS PAIN RELIEF PATCH 4% PATCH TOPICALLY NEEDED TAKING SALONPAS 4% CREAM TOPICALLY NEEDED TAKING DULOXETINE HCL 60 MG CAPSULE DELAYED RELEASE PARTICLES 1 CAPSULE ORALLY ONCE A DAY, NOTES: LAST NIGHT 7PM TAKING NAPROXEN 500 MG TABLET 1 TABLET ORALLY TWICE A DAY, NOTES: LAST NIGHT 7PM TAKING PANTOPRAZOLE SODIUM 40 MG TABLET DELAYED RELEASE 1 TABLET ORALLY ONCE A DAY TAKING OXYCODONE HCL 5 MG TABLET 1 TAB ORALLY BID TAKING CLONAZEPAM 2 MG TABLET 1 1/2 TABLET ORALLY TID 3 MG, NOTES: LAST THIS AM 0800 TAKING TAMSULOSIN HCL 0.4 MG CAPSULE EXTENDED RELEASE 2 CAP(S) ORALLY DAILY NOT-TAKING ZOLOFT 50 MG TABLET 1 TABLET ORALLY ONCE A DAY, NOTES: LAST NIGHT 7PM NOT-TAKING SOMA 350 MG TABLET 1 TABLET NEEDED ORALLY TWICE A DAY MDD=2 NOT-TAKING CIALIS 20 MG TABLET 1 TABLET ORALLY 1 HOUR PRIOR TO SEXUAL INTERCOURSE NOT-TAKING MIRALAX PACKET 1 PACKET MIXED WITH 8 OUNCES OF FLUID ORALLY ONCE A DAY, NOTES: LAST NIGHT NOT-TAKING LYRICA 200 MG CAPSULE 1 CAPSULE ORALLY 3 CAPS PER DAY, NOTES: TODAY 0800 NOT-TAKING SOMA 350 MG TABLET 1 TABLET ORALLY 3 X DAY, NOTES: LAST EEXRH2AM NOT-TAKING PREDNISONE 5 MG TABLET 1 TABLET ORALLY ONCE A DAY NOT-TAKING ROBAXIN-750 750 MG TABLET 1 TABLET ORALLY EVERY 8 HRS, NOTES: LAST NIGHT 7PM NOT-TAKING LIDOCAINE 4 % CREAM DIRECTED EXTERNALLY APPLY TO PAINFUL AREAS OF BACK 4 TMES PER DAY NOT-TAKING LIDOCAINE 4 % GEL DIRECTED EXTERNALLY Q 6 HOURS TO PAINFUL AREA OF BACK NOT-TAKING LIDOCAINE 5 % PATCH 1 PATCH TO INTACT SKIN REMOVE AFTER 12 HOURS EXTERNALLY ON 12 HRS, OFF 12 HRS TO PAINFUL AREA OF BACK NOT-TAKING LINACLOTIDE 290 MCG CAPSULE 1 CAPSULE ORALLY ONCE A DAY NOT-TAKING ACETAMINOPHEN 650 MG TABLET 1 TABLET NEEDED ORALLY EVERY 6 HRS NOT-TAKING LIDOCAINE 2.5 CREAM 1 APPLICATION TO AFFECTED AREA NEEDED EXTERNALLY FOUR TIMES DAILY NOT-TAKING DUODERM CGF EXTRA THIN 1 MISCELLANEOUS DIRECTED EXTERNALLY TO SORE APPLY TO WOUND, CHANGE EVERY 3-5 DAYS UNTIL HEALED NOT-TAKING TEMOVATE 0.05 % CREAM 1 APPLICATION TO AFFECTED AREA EXTERNALLY TO ITCHY SPOTS ON BODY TWICE A DAY FOR TWO WEEKS, THEN THREE TIMES WEEKLY NOT-TAKING PREVACID 15 MG CAPSULE DELAYED RELEASE 1 CAPSULES BEFORE A MEAL ORALLY ONCE A DAY NOT-TAKING OSTEO BI-FLEX REGULAR STRENGTH 250-200 MG TABLET 1 TAB ORALLY TWICE DAILY NOT-TAKING LOVASTATIN 40 MG TABLET 1 TABLET WITH A MEAL ORALLY ONCE A DAY MEDICATION LIST REVIEWED AND RECONCILED WITH THE PATIENT PAST MEDICAL HISTORY DEPRESSION HYPERLIPDEMIA GERD IBS ARTHRITIS ANXIETY 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 SCOLIOSIS KIDNEY STONES PROSTATITS COMPRESSION FX 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 1 SON(S) , 1 DAUGHTER(S) - HEALTHY. NO KNOWN FAMILY HISTORY OF ANY UROLOGICALLY RELATED DISEASES\/CANCERS. SON-ANXIETY. SOCIAL HISTORY GENERAL: TOBACCO USE ARE YOU A:: NEVER SMOKER. HIV / HEP-C SCREENING HIV TEST OFFERED TO PATIENT:YES DATE OFFERED:05/28/2018 TEST ACCEPTED:NO HEP-C TEST OFFERED TO PATIENT:YES DATE OFFERED:05/28/2018 REASON:PATIENT DECLINED TEST ACCEPTED:NO REASON:PATIENT DECLINED BROCHURE PROVIDED TO PATIENTNO OTHERS AT HOME: . EDUCATION LEVEL OF EDUCATION:COLLEGE DIET: REGULAR. LANGUAGE CZECH. DOMESTIC VIOLENCE NONE. RECREATIONAL DRUG USE DENIES. EXERCISE: LIMITED DUE TO BACK INJURY. PATIENT: ____. 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 1 CUP/DAY GNOSTICISM NO JEHOVAH'S WITNESS BELIEFS THAT WOULD IMPACT HEALTH CARE. MARITAL STATUS: . ALCOHOL SCREENING POINTS: 0, INTERPRETATION: NEGATIVE. OCCUPATION: [employer], RETIRED/DISABLED. SEXUAL HX HAD SEX IN THE LAST 12 MONTHS (VAGINAL, ORAL, OR ANAL)?NO HAVE YOU EVER HAD AN STD?NO HOSPITALIZATION/MAJOR DIAGNOSTIC PROCEDURE SURGICALY RELATED REVIEW OF SYSTEMS REVIEWED BY: PROVIDER: JOSESITO LATHAM . CONSTITUTIONAL: ANY CHANGE IN YOUR MEDICAL CONDITION? NO . CHILLS NO . FEVER NO . INFECTION: DO YOU HAVE NEW INFECTIONS? NO . DO YOU HAVE HISTORY OF MRSA? NO . MUSCULOSKELETAL: ANY NEW PATTERNS OF PAIN OR NUMBNESS? INCREASED RIGHT THORACIC REGIO . SYTEMIC LUPUS NO . GASTROENTEROLOGY: ANY NEW CHANGE IN BOWEL CONTROL? NO . BARRETTS ESOPHAGUS NO . CIRRHOSIS NO . HEPATITIS NO . LIVER FAILURE NO . ACID REFLUX NO . UNEXPLAINED WEIGHT LOSS NO . GENITOURINARY: ANY NEW CHANGE IN BLADDER CONTROL? NO . IS THERE A CHANCE YOU COULD BE ? NO . HEMATOLOGY/LYMPH: DO YOU TAKE ANY BLOOD THINNERS? (FOR EXAMPLE- COUMADIN, PLAVIX, AGGRENOX, PLATEL, PRADAXA, OR XARELTO) NO . WHEN WAS YOUR LAST DOSE? DATE: TIME: . LOW PLATELET COUNT NO . SICKLE CELL DISEASE NO . VON WILLIEBRANDS NO . FACTOR V LEIDEN NO . THALLASEMIA NO . ANEMIA NO . EASY BRUISING NO . NEUROLOGY: HAVE YOU FALLEN IN THE PAST 12 MONTHS? YES A COUPLE WEEKS AGO -NO URGENT CARE VISIT . ANY NEW EXTREMITY NUMBNESS OR WEAKNESS? NO . HEAD INJURY NO . DEMENTIA NO . CEREBRAL PALSY NO . MULTIPLE SCLEROSIS NO . DIZZINESS NO . HEADACHE NO . STROKES NO . VERTIGO NO . CARDIOLOGY: DO YOU HAVE A PACEMAKER OR DEFIBRILLATOR? NO . ANGINA NO . HEART ATTACK NO . HEART SURGERY NO . CONGESTIVE HEART FAILURE/FLUID OVERLOAD NO . CHEST PAIN NO . HIGH BLOOD PRESSURE NO . IRREGULAR HEART BEAT NO . RESPIRATORY: HAVE YOU BEEN SICK IN THE PAST WEEK? NO . FEVER NO . FLU LIKE SYMPTOMS? NO . CPAP NO . BYPAP NO . ASTHMA NO . EMPHYSEMA NO . CHRONIC LUNG DISEASES NO . SHORTNESS OF BREATH ON EXERTION NO . DO YOU USE ANY TYPE OF TOBACCO (SMOKE, SMOKELESS, CHEW)? NO . COUGH NO . SNORING NO . INTEGUMENTARY: DO YOU HAVE ANY RASHES OR OPEN SORES? NO . ALLERGIC/IMMUNO: ARE YOU ALLERGIC TO IV DYE? NO . ANY NEW ALLERGIES? NO . PSYCHIATRIC: DO YOU HAVE THOUGHTS OF HURTING YOURSELF OR SOMEONE ELSE? NO . ARE YOU ABUSED, NEGLECTED, OR IN AN UNSAFE ENVIRONMENT? PT DOES STATE HE HAS ANXIETY . ENDOCRINOLOGY: ARE YOU DIABETIC? NO . THYROID DISORDER NO . OTHER: DO YOU NEED ANY PRESCRIPTIONS? NO . IF YES, PLEASE LIST: ____ . ANY NEW PROBLEMS WITH YOUR MEDICATIONS? NO . WHEN DID YOU LAST EAT? ____ . WHEN DID YOU LAST DRINK? ____ . WHAT DID YOU LAST DRINK? ____ . NAME OF PERSON DRIVING YOU HOME? ____ . DO YOU HAVE ANY OTHER QUESTIONS OR CONCERNS NO . VITAL SIGNS WT 228.6 LBS, HT 76 IN, BMI 27.82 INDEX, BP 120/74 MM HG, HR 103 /MIN, RR 18 /MIN, TEMP 96.9 F, OXYGEN SAT % 97%, SAFE IN ENV? (Y/N) YES, NA INITIALS AW 1307, REVIEWED BY: ADRY. EXAMINATION GENERAL EXAMINATION: GENERAL AWAKE,ALERT ,PLEAASANT . PSYCH AFFECT NORMAL . LUNGS: LUNG ALEJANDRO ARE CLEAR TO AUSCULTATION BILATERALLY. GOOD MOVEMENT OF AIR . HEART: S1, S2 IN A REGULAR RATE AND RHYTHM. NO SIGNIFICANT MURMURS, RUBS OR GALLOPS NOTED . MUSCULOSKELETAL: MUSCLE STRENGTH TESTING 4/5 BILATERAL LOWER EXTREMITIES. FOR BILAT. SIJ TRIGGER POINTS:, ELICITED WITH PALPATION OVER RIGHT LUMBAR PARAVERTEBRAL MUSCLES AND RESTRICTION OF ROM IN THIS AREA. , TRIGGER POINTS:, ELICITED WITH PALPATION OVER MID THORACIC MUSCLES RIGHT. AGGREVATION IN PAIN WITH ROJM OF SPINE.. ASSESSMENTS MYALGIA, OTHER SITE - M79.18 (PRIMARY) LOWER THORACIC BACK PAIN - M54.6 TREATMENT MYALGIA, OTHER SITE NOTES: TPI RIGHT MID/LOW THORACIC. PROCEDURE CODES FA211 ESTABILISHED PATIENT [facility] CHARGE DISPOSITION & COMMUNICATION FOLLOW UP POST (REASON: TPI RIGHT MID/LOW THORACIC) ELECTRONICALLY SIGNED BY NOA JEWELL ON 03/05/2019 AT 02:46 PM EST DISCLAIMER : THIS IS A VISIT SUMMARY EXTRACTED FROM THE [employer] CHART. IT IS NOT A COPY OF THE [employer] PROGRESS NOTE. CADEND
== END ==
LOC: M PAIN 13:00
PROVIDERS: ATTEND Nurse Practitioner Family
DX: M79.18 Myalgia, other site (principal); M54.6 Pain in thoracic spine; Z86.59 Personal history of other mental and behavioral disorders; E78.5 Hyperlipidemia, unspecified; K21.9 Gastro-esophageal reflux disease without esophagitis; Z87.820 Personal history of traumatic brain injury; Z88.5 Allergy status to narcotic agent; Z88.8 Allergy status to other drugs, medicaments and biological substances; Z79.891 Long term (current) use of opiate analgesic; Z79.899 Other long term (current) drug therapy

== ENCOUNTER → 2019-02-25 | Outpatient (CLI) | payer MEDICARE ==
[~2019-02-25] MED LIST changes: +BUPIVACAINE HCL 0.25% 10 ML VIAL As Ordered ONE; +BUPIVACAINE HCL 0.25% 30 ML VIAL As Ordered ONE; +TRIAMCINOLONE ACETONIDE SUSP 40 MG/ML VIAL (J3301) As Ordered ONE
--- NOTE | 2019-02-28 00:23 | ECWPNPC ---
PATIENT NAME: BRENDA CHEN : 1960 GENDER: MALE VISIT DATE: 02/25/2019 DISCHARGE DATE: 02/25/19 1309 VISIT LOCKED DATE TIME: PHYSICIAN: YUDELKA OROZCO MD RESOURCE: YUDELKA OROZCO MD REASON FOR APPOINTMENT 1. TPI RIGHT MID/LOW THORACIC HISTORY OF PRESENT ILLNESS HISTORY OF PRESENT ILLNESS: PAIN THE PATIENT DESCRIBES THE PAIN... FALL RISK SCREENING: SCREENING :NO FALLS REPORTED IN THE LAST YEAR CURRENT MEDICATIONS TAKING BISACODYL 10 MG SUPPOSITORY 1 SUPPOSITORY NEEDED RECTAL ONCE A DAY, NOTES: YESTRDAY AM TAKING METHOCARBAMOL 750 MG TABLET 2 TABLETS ORALLY THREE TIMES A DAY, NOTES: 02/25/19 AM TAKING COLACE 100 MG CAPSULE 1 CAPSULE NEEDED ORALLY ONCE A DAY, NOTES: 02/24/19 TAKING BISACODYL 5 MG 2 TAB ORALLY DAILY, NOTES: 02/24/19 TAKING GABAPENTIN 600 MG TABLET 2 TABLETS ORALLY THREE TIMES A DAY, NOTES: 02/25/19 AM TAKING GAS-X EXTRA STRENGTH 125 MG TABLET CHEWABLE 1 TABLET AFTER MEALS AND AT BEDTIME NEEDED ORALLY THREE TIMES A DAY, NOTES: 02/24/19 TAKING SALONPAS PAIN RELIEF PATCH 4% PATCH TOPICALLY NEEDED, NOTES: 02/24/19 TAKING SALONPAS 4% CREAM TOPICALLY NEEDED, NOTES: 02/24/19 TAKING DULOXETINE HCL 60 MG CAPSULE DELAYED RELEASE PARTICLES 1 CAPSULE ORALLY ONCE A DAY, NOTES: 02/25/19 AM TAKING NAPROXEN 500 MG TABLET 1 TABLET ORALLY TWICE A DAY, NOTES: LAST NIGHT 7PM TAKING PANTOPRAZOLE SODIUM 40 MG TABLET DELAYED RELEASE 1 TABLET ORALLY ONCE A DAY, NOTES: 02/25/19 TAKING OXYCODONE HCL 5 MG TABLET 1 TAB ORALLY BID, NOTES: 02/25/19 AM TAKING CLONAZEPAM 2 MG TABLET 1 1/2 TABLET ORALLY TID 3 MG, NOTES: 02/25/19 AM TAKING TAMSULOSIN HCL 0.4 MG CAPSULE EXTENDED RELEASE 2 CAP(S) ORALLY DAILY, NOTES: 02/24/19 NOT-TAKING ZOLOFT 50 MG TABLET 1 TABLET ORALLY ONCE A DAY, NOTES: LAST NIGHT 7PM NOT-TAKING SOMA 350 MG TABLET 1 TABLET NEEDED ORALLY TWICE A DAY MDD=2 NOT-TAKING CIALIS 20 MG TABLET 1 TABLET ORALLY 1 HOUR PRIOR TO SEXUAL INTERCOURSE NOT-TAKING MIRALAX PACKET 1 PACKET MIXED WITH 8 OUNCES OF FLUID ORALLY ONCE A DAY, NOTES: LAST NIGHT NOT-TAKING LYRICA 200 MG CAPSULE 1 CAPSULE ORALLY 3 CAPS PER DAY, NOTES: TODAY 0800 NOT-TAKING SOMA 350 MG TABLET 1 TABLET ORALLY 3 X DAY, NOTES: LAST [id number] NOT-TAKING PREDNISONE 5 MG TABLET 1 TABLET ORALLY ONCE A DAY NOT-TAKING ROBAXIN-750 750 MG TABLET 1 TABLET ORALLY EVERY 8 HRS, NOTES: LAST NIGHT 7PM NOT-TAKING LIDOCAINE 4 % CREAM DIRECTED EXTERNALLY APPLY TO PAINFUL AREAS OF BACK 4 TMES PER DAY NOT-TAKING LIDOCAINE 4 % GEL DIRECTED EXTERNALLY Q 6 HOURS TO PAINFUL AREA OF BACK NOT-TAKING LIDOCAINE 5 % PATCH 1 PATCH TO INTACT SKIN REMOVE AFTER 12 HOURS EXTERNALLY ON 12 HRS, OFF 12 HRS TO PAINFUL AREA OF BACK NOT-TAKING LINACLOTIDE 290 MCG CAPSULE 1 CAPSULE ORALLY ONCE A DAY NOT-TAKING ACETAMINOPHEN 650 MG TABLET 1 TABLET NEEDED ORALLY EVERY 6 HRS NOT-TAKING LIDOCAINE 2.5 CREAM 1 APPLICATION TO AFFECTED AREA NEEDED EXTERNALLY FOUR TIMES DAILY NOT-TAKING DUODERM CGF EXTRA THIN 1 MISCELLANEOUS DIRECTED EXTERNALLY TO SORE APPLY TO WOUND, CHANGE EVERY 3-5 DAYS UNTIL HEALED NOT-TAKING TEMOVATE 0.05 % CREAM 1 APPLICATION TO AFFECTED AREA EXTERNALLY TO ITCHY SPOTS ON BODY TWICE A DAY FOR TWO WEEKS, THEN THREE TIMES WEEKLY NOT-TAKING PREVACID 15 MG CAPSULE DELAYED RELEASE 1 CAPSULES BEFORE A MEAL ORALLY ONCE A DAY NOT-TAKING OSTEO BI-FLEX REGULAR STRENGTH 250-200 MG TABLET 1 TAB ORALLY TWICE DAILY NOT-TAKING LOVASTATIN 40 MG TABLET 1 TABLET WITH A MEAL ORALLY ONCE A DAY MEDICATION LIST REVIEWED AND RECONCILED WITH THE PATIENT PAST MEDICAL HISTORY DEPRESSION HYPERLIPDEMIA GERD IBS ARTHRITIS ANXIETY 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 SCOLIOSIS KIDNEY STONES PROSTATITS COMPRESSION FX 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 1 SON(S) , 1 DAUGHTER(S) - HEALTHY. NO KNOWN FAMILY HISTORY OF ANY UROLOGICALLY RELATED DISEASES\/CANCERS. SON-ANXIETY. SOCIAL HISTORY GENERAL: TOBACCO USE ARE YOU A:: NEVER SMOKER. HIV / HEP-C SCREENING HIV TEST OFFERED TO PATIENT:YES DATE OFFERED:05/28/2018 TEST ACCEPTED:NO HEP-C TEST OFFERED TO PATIENT:YES DATE OFFERED:05/28/2018 REASON:PATIENT DECLINED TEST ACCEPTED:NO REASON:PATIENT DECLINED BROCHURE PROVIDED TO PATIENTNO OTHERS AT HOME: . EDUCATION LEVEL OF EDUCATION:COLLEGE DIET: REGULAR. 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 DOMESTIC VIOLENCE DO YOU FEEL SAFE IN YOUR ENVIRONMENT?YES RECREATIONAL DRUG USE DENIES. EXERCISE: LIMITED DUE TO BACK INJURY. LEARNING BARRIERS / SPECIAL NEEDS BARRIERS TO LEARNING?NO HEARING IMPAIRED?NO VISION IMPAIRED?YES COGNITIVELY IMPAIRED?NO :CORRECTIVE LENSES READINESS TO LEARN?YES LEARNING PREFERENCES?YES :BOOKLETS, HANDOUTS LEARNING CAPABILITIES PRESENT?YES EMOTIONAL BARRIERS?NO SPECIAL DEVICES?YES :CANE VERIFICATION ENGINEER NEEDED?NO PAIN CLINIC PFS, CLERGY, PUBLIC HEALTH REFERRALS HAS THE PATIENT BEEN EDUCATED REGARDING HIS/HER PLAN OF CARE?YES HAS THE PATIENT BEEN EDUCATED REGARDING PAIN, THE RISK FOR PAIN, THE IMPORTANCE OF EFFECTIVE PAIN MANAGEMENT, AND THE PAIN ASSESSMENT PROCESS?YES LATEX QUESTIONNAIRE LATEX ALLERGY : HAVE YOU EVER DEVELOPED ANY TYPE OF REACTION AFTER HANDLING LATEX PRODUCTS SUCH RUBBER GLOVES, CONDOMS, DIAPHRAGMS, BALLOONS, SOCKS, OR UNDERWEAR?NO LATEX ALLERGY : HAVE YOU EVER DEVELOPED ANY TYPE OF REACTION DURING OR AFTER DENTAL APPOINTMENT, VAGINAL/RECTAL EXAMINATION, SURGICAL PROCEDURE, OR ANY OTHER EXPOSURE?NO LATEX RISK : HAVE YOU EVER HAD ANY DIFFICULTY BREATHING OR HIVES AFTER EATING OR HANDLING ANY FRUITS, OR VEGETABLES; SUCH KIWI, BANANAS, STONE FRUITS, OR CHESTNUTSNO LATEX RISK : DO YOU HAVE A PREVIOUS PERSONAL HISTORY OF MORE THAN NINE SURGERIES, SPINA BIFIDA, OR REPEATED CATHERIZATIONS? NO LATEX RISK : ARE YOU FREQUENTLY EXPOSED TO LATEX PRODUCTS IN YOUR OCCUPATION?NO DATE ASKED : 02/25/2019 CAFFEINE CAFFEINE USE? 1 CUP/DAY ADVANCE DIRECTIVE ADVANCE DIRECTIVE DISCUSSED WITH PATIENT:YES 02/25/19 PT DOES NOT HAVE ANY ADVANCED DIRECTIVES AND HE DECLINES INFORMATION ON HCP AT THIS TIME. AD SHINTO NO UATSDIN BELIEFS THAT WOULD IMPACT HEALTH CARE. MARITAL STATUS: . ALCOHOL SCREENING POINTS: 0, INTERPRETATION: NEGATIVE. OCCUPATION: [employer], RETIRED/DISABLED. SEXUAL HX HAD SEX IN THE LAST 12 MONTHS (VAGINAL, ORAL, OR ANAL)?NO HAVE YOU EVER HAD AN STD?NO HOSPITALIZATION/MAJOR DIAGNOSTIC PROCEDURE SURGICALY RELATED REVIEW OF SYSTEMS REVIEWED BY: PROVIDER: . CONSTITUTIONAL: ANY CHANGE IN YOUR MEDICAL CONDITION? NO . CHILLS NO . FEVER NO . INFECTION: DO YOU HAVE NEW INFECTIONS? NO . DO YOU HAVE HISTORY OF MRSA? NO . MUSCULOSKELETAL: ANY NEW PATTERNS OF PAIN OR NUMBNESS? NO . GASTROENTEROLOGY: ANY NEW CHANGE IN BOWEL CONTROL? NO . GENITOURINARY: ANY NEW CHANGE IN BLADDER CONTROL? NO . IS THERE A CHANCE YOU COULD BE ? NO . HEMATOLOGY/LYMPH: DO YOU TAKE ANY BLOOD THINNERS? (FOR EXAMPLE- COUMADIN, PLAVIX, AGGRENOX, PLATEL, PRADAXA, OR XARELTO) NO . WHEN WAS YOUR LAST DOSE? DATE: TIME: . NEUROLOGY: HAVE YOU FALLEN IN THE PAST 12 MONTHS? SLIPPED ON ICE 2 WEEKS AGO PT DENIES INJURIES . ANY NEW EXTREMITY NUMBNESS OR WEAKNESS? NO . CARDIOLOGY: DO YOU HAVE A PACEMAKER OR DEFIBRILLATOR? NO . RESPIRATORY: HAVE YOU BEEN SICK IN THE PAST WEEK? NO . FEVER NO . FLU LIKE SYMPTOMS? NO . COUGH NO . INTEGUMENTARY: DO YOU HAVE ANY RASHES OR OPEN SORES? NO . ALLERGIC/IMMUNO: ARE YOU ALLERGIC TO IV DYE? NO . ANY NEW ALLERGIES? NO . PSYCHIATRIC: DO YOU HAVE THOUGHTS OF HURTING YOURSELF OR SOMEONE ELSE? NO . ARE YOU ABUSED, NEGLECTED, OR IN AN UNSAFE ENVIRONMENT? NO . ENDOCRINOLOGY: ARE YOU DIABETIC? NO . OTHER: DO YOU NEED ANY PRESCRIPTIONS? NO . IF YES, PLEASE LIST: ____ . ANY NEW PROBLEMS WITH YOUR MEDICATIONS? NO . WHEN DID YOU LAST EAT? 02/24/19 1830 . WHEN DID YOU LAST DRINK? 02/25/19 0830 . WHAT DID YOU LAST DRINK? BLACK COFFIE, WATER . NAME OF PERSON DRIVING YOU HOME? JULIETTE . DO YOU HAVE ANY OTHER QUESTIONS OR CONCERNS NO . VITAL SIGNS WT 231.0 LBS, HT 76 IN, BMI 28.12 INDEX, BP 118/80 MM HG, HR 105 /MIN, RR 18 /MIN, TEMP 96.8 F, OXYGEN SAT % 97%, NA INITIALS AW 1115, REVIEWED BY: EM. ASSESSMENTS MYALGIA, OTHER SITE - M79.18 (PRIMARY) PROCEDURES PN TRIGGER POINT INJECTION WITH STEROIDS PRE PROCEDURE DIAGNOSIS 1. MYALGIA 2. PAIN AT BILATERAL THORACIC AREA. POST PROCEDURE DIAGNOSIS 1. MYALGIA 2. PAIN AT BILATERAL THORACIC AREA. PROCEDURE TRIGGER POINT INJECTION AT RIGHT AND LEFT THORACIC AREA. SURGEON DR. YUDELKA OROZCO TELESALES SUPERVISOR NONE ANESTHESIA LOCAL PRE PROCEDURE NOTE THE PATIENT HAS A HISTORY OF CHRONIC PAIN AT THE BILATERAL THORACIC AREA. I EVALUATED THE PATIENT AND REVIEWED THE CHART. THERE IS EVIDENCE OF BANDS OF TISSUE WITH RESTRICTION OF MOVEMENT AND PRESENCE OF TRIGGER POINT AT THE AFFECTED AREA. I WENT OVER THE RISKS, ALTERNATIVES, AND BENEFITS ASSOCIATED WITH THIS PROCEDURE. THE PATIENT WOULD LIKE TO PROCEED AND GIVES CONSENT TO PERFORM THE PROCEDURE. THE PATIENT DENIES UNEXPLAINABLE WEIGHT LOSS, FEVER, CHILLS, OR NEW CHANGES IN URINARY OR BOWEL CONTROL DESCRIPTION OF PROCEDURE THE PATIENT WAS BROUGHT TO THE PROCEDURE ROOM AND PLACED IN THE SITTING POSITION. THE AREA WAS CLEANED WITH ALCOHOL. THE PROCEDURE WAS DONE USING ASEPTIC STERILE TECHNIQUE. I CHECKED LATERALITY AND THE LEVEL WHERE THE PROCEDURE WAS GOING TO BE PERFORMED WITH THE PATIENT AND THE SUPPORTING STAFF AT THE MOMENT OF THE TIME OUT IN THE PROCEDURE ROOM. USING A 25-GAUGE NEEDLE, TRIGGER POINTS WERE INJECTED AT THE RIGHT AND LEFT THORACIC AREA WITH A TOTAL OF 40 ML OF BUPIVACAINE 0.25% AND KENALOG 40 MG. THERE WAS NO EVIDENCE OF BLOOD, PARESTHESIA OR CEREBROSPINAL FLUID DURING THE PROCEDURE. THE PATIENT WAS SENT TO THE RECOVERY ROOM. THE PATIENT WAS MOVING THE EXTREMITIES AND DOING WELL. THERE WAS NO COMPLICATION DURING THE PROCEDURE POST PROCEDURE NOTE I AM LOOKING FOR LONG LASTING PAIN RELIEF WITH THIS INJECTION. THE PATIENT WILL BE SEEN IN A FOLLOW UP IN THE NEXT FEW WEEKS. INSTRUCTIONS WERE GIVEN, QUESTIONS WERE ANSWERED, AND THE PATIENT EXPRESSED UNDERSTANDING AND AGREES WITH THE PLAN. I, NUPUR SOSA, DOCUMENTED THE ABOVE INFORMATION ACTING A SCRIBE FOR DR. OROZCO. I HAVE REVIEWED THE ABOVE DOCUMENT, WRITTEN BY NUPUR SOSA SCRIBKimberly AND I VERIFY THAT IT IS ACCURATE. PROCEDURE CODES 23940 INJ TRIGGER POINT 03/12 [facility] DISPOSITION & COMMUNICATION FOLLOW UP 3 WEEKS ELECTRONICALLY SIGNED BY YUDELKA OROZCO MD, MD ON 02/27/2019 AT 05:07 PM EST DISCLAIMER : THIS IS A VISIT SUMMARY EXTRACTED FROM THE [facility] CHART. IT IS NOT A COPY OF THE [employer] PROGRESS NOTE. [facility]
== END ==
LOC: M PAIN 10:45
PROVIDERS: ATTEND Anesthesiology
DX: M79.18 Myalgia, other site (principal); Z86.59 Personal history of other mental and behavioral disorders; E78.5 Hyperlipidemia, unspecified; K21.9 Gastro-esophageal reflux disease without esophagitis; Z87.820 Personal history of traumatic brain injury; Z88.5 Allergy status to narcotic agent; Z88.8 Allergy status to other drugs, medicaments and biological substances; Z79.891 Long term (current) use of opiate analgesic; Z79.899 Other long term (current) drug therapy
CPT/HCPCS: 20552; J3301

== ENCOUNTER → 2019-03-17 | Outpatient (CLI) | payer MEDICARE ==
[~2019-03-17] MED LIST changes: -BUPIVACAINE HCL 0.25% 10 ML VIAL As Ordered ONE; -BUPIVACAINE HCL 0.25% 30 ML VIAL As Ordered ONE; -TRIAMCINOLONE ACETONIDE SUSP 40 MG/ML VIAL (J3301) As Ordered ONE
--- NOTE | 2019-03-31 03:26 | ECWPNPC ---
PATIENT NAME: BRENDA CHEN : 1960 GENDER: MALE VISIT DATE: 03/17/2019 DISCHARGE DATE: 03/17/19 1414 VISIT LOCKED DATE TIME: PHYSICIAN: JOSESITO DESIR RESOURCE: JOSESITO DESIR REASON FOR APPOINTMENT 1. POST TPI HISTORY OF PRESENT ILLNESS HISTORY OF PRESENT ILLNESS: HERE FOR POST PROCEDURE FOLLOW-UP. HAD TRIGGER POINT INJECTIONS, LEFT AND RIGHT THORACIC AREA ON 02/25/2019. REPORTS THAT HE FEELS HE HAD SOME IMPROVEMENT IN HIS PAIN. STATES HIS FEELS IT WAS HELPFUL AT IMPROVING HIS MOBILITY. FINDINGS HIS CURRENT CHRONIC PAIN MEDICATION INEFFECTIVE AT REDUCING HIS PAIN. HE HAS BEEN ON THIS MEDICATION FOR SEVERAL YEARS. DISCUSSED TRIAL OF BELBUCA, A C3 ANALGESIC FOR CHRONIC PAIN. PATIENT WOULD LIKE TO ENTERTAIN NEW MEDICATIONS TO TREAT HIS CHRONIC PAIN THAT ARE NOT LIKELY TO CAUSE SEVERE SIDE EFFECTS LIKE C2 ANALGESICS ARE NOTORIOUS FOR. RATING PAIN LEVEL 8/10VAS. PAIN THE PATIENT DESCRIBES THE PAIN... FALL RISK SCREENING: SCREENING :NO FALLS REPORTED IN THE LAST YEAR CURRENT MEDICATIONS TAKING BISACODYL 10 MG SUPPOSITORY 1 SUPPOSITORY NEEDED RECTAL ONCE A DAY TAKING METHOCARBAMOL 750 MG TABLET 2 TABLETS ORALLY THREE TIMES A DAY TAKING COLACE 100 MG CAPSULE 1 CAPSULE NEEDED ORALLY ONCE A DAY TAKING BISACODYL 5 MG 2 TAB ORALLY DAILY TAKING GABAPENTIN 600 MG TABLET 2 TABLETS ORALLY THREE TIMES A DAY TAKING GAS-X EXTRA STRENGTH 125 MG TABLET CHEWABLE 1 TABLET AFTER MEALS AND AT BEDTIME NEEDED ORALLY THREE TIMES A DAY TAKING SALONPAS PAIN RELIEF PATCH 4% PATCH TOPICALLY NEEDED TAKING SALONPAS 4% CREAM TOPICALLY NEEDED TAKING DULOXETINE HCL 60 MG CAPSULE DELAYED RELEASE PARTICLES 1 CAPSULE ORALLY ONCE A DAY TAKING PANTOPRAZOLE SODIUM 40 MG TABLET DELAYED RELEASE 1 TABLET ORALLY ONCE A DAY TAKING CLONAZEPAM 2 MG TABLET 1 1/2 TABLET ORALLY TID 3 MG TAKING TAMSULOSIN HCL 0.4 MG CAPSULE EXTENDED RELEASE 2 CAP(S) ORALLY DAILY TAKING OXYCODONE HCL 5 MG TABLET 1 TAB ORALLY Q8H PRN MDD3 NOT-TAKING NAPROXEN 500 MG TABLET 1 TABLET ORALLY TWICE A DAY NOT-TAKING ZOLOFT 50 MG TABLET 1 TABLET ORALLY ONCE A DAY NOT-TAKING SOMA 350 MG TABLET 1 TABLET NEEDED ORALLY TWICE A DAY MDD=2 NOT-TAKING CIALIS 20 MG TABLET 1 TABLET ORALLY 1 HOUR PRIOR TO SEXUAL INTERCOURSE NOT-TAKING MIRALAX PACKET 1 PACKET MIXED WITH 8 OUNCES OF FLUID ORALLY ONCE A DAY, NOTES: LAST NIGHT NOT-TAKING LYRICA 200 MG CAPSULE 1 CAPSULE ORALLY 3 CAPS PER DAY, NOTES: TODAY 0800 NOT-TAKING SOMA 350 MG TABLET 1 TABLET ORALLY 3 X DAY, NOTES: LAST [id number] NOT-TAKING PREDNISONE 5 MG TABLET 1 TABLET ORALLY ONCE A DAY NOT-TAKING ROBAXIN-750 750 MG TABLET 1 TABLET ORALLY EVERY 8 HRS, NOTES: LAST NIGHT 7PM NOT-TAKING LIDOCAINE 4 % CREAM DIRECTED EXTERNALLY APPLY TO PAINFUL AREAS OF BACK 4 TMES PER DAY NOT-TAKING LIDOCAINE 4 % GEL DIRECTED EXTERNALLY Q 6 HOURS TO PAINFUL AREA OF BACK NOT-TAKING LIDOCAINE 5 % PATCH 1 PATCH TO INTACT SKIN REMOVE AFTER 12 HOURS EXTERNALLY ON 12 HRS, OFF 12 HRS TO PAINFUL AREA OF BACK NOT-TAKING LINACLOTIDE 290 MCG CAPSULE 1 CAPSULE ORALLY ONCE A DAY NOT-TAKING ACETAMINOPHEN 650 MG TABLET 1 TABLET NEEDED ORALLY EVERY 6 HRS NOT-TAKING LIDOCAINE 2.5 CREAM 1 APPLICATION TO AFFECTED AREA NEEDED EXTERNALLY FOUR TIMES DAILY NOT-TAKING DUODERM CGF EXTRA THIN 1 MISCELLANEOUS DIRECTED EXTERNALLY TO SORE APPLY TO WOUND, CHANGE EVERY 3-5 DAYS UNTIL HEALED NOT-TAKING TEMOVATE 0.05 % CREAM 1 APPLICATION TO AFFECTED AREA EXTERNALLY TO ITCHY SPOTS ON BODY TWICE A DAY FOR TWO WEEKS, THEN THREE TIMES WEEKLY NOT-TAKING PREVACID 15 MG CAPSULE DELAYED RELEASE 1 CAPSULES BEFORE A MEAL ORALLY ONCE A DAY NOT-TAKING OSTEO BI-FLEX REGULAR STRENGTH 250-200 MG TABLET 1 TAB ORALLY TWICE DAILY NOT-TAKING LOVASTATIN 40 MG TABLET 1 TABLET WITH A MEAL ORALLY ONCE A DAY MEDICATION LIST REVIEWED AND RECONCILED WITH THE PATIENT PAST MEDICAL HISTORY DEPRESSION HYPERLIPDEMIA GERD IBS ARTHRITIS ANXIETY 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 SCOLIOSIS KIDNEY STONES PROSTATITS COMPRESSION FX 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 1 SON(S) , 1 DAUGHTER(S) - HEALTHY. NO KNOWN FAMILY HISTORY OF ANY UROLOGICALLY RELATED DISEASES\/CANCERS. SON-ANXIETY. SOCIAL HISTORY GENERAL: TOBACCO USE ARE YOU A:: NEVER SMOKER. HIV / HEP-C SCREENING HIV TEST OFFERED TO PATIENT:YES DATE OFFERED:05/28/2018 TEST ACCEPTED:NO HEP-C TEST OFFERED TO PATIENT:YES DATE OFFERED:05/28/2018 REASON:PATIENT DECLINED TEST ACCEPTED:NO REASON:PATIENT DECLINED BROCHURE PROVIDED TO PATIENTNO OTHERS AT HOME: . EDUCATION LEVEL OF EDUCATION:COLLEGE DIET: REGULAR. LANGUAGE ESTONIAN. DOMESTIC VIOLENCE DO YOU FEEL SAFE IN YOUR ENVIRONMENT?YES RECREATIONAL DRUG USE DENIES. EXERCISE: LIMITED DUE TO BACK INJURY. 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 CLINIC PFS, CLERGY, PUBLIC HEALTH REFERRALS HAS THE PATIENT BEEN EDUCATED REGARDING HIS/HER PLAN OF CARE?YES HAS THE PATIENT BEEN EDUCATED REGARDING PAIN, THE RISK FOR PAIN, THE IMPORTANCE OF EFFECTIVE PAIN MANAGEMENT, AND THE PAIN ASSESSMENT PROCESS?YES LATEX QUESTIONNAIRE LATEX ALLERGY : HAVE YOU EVER DEVELOPED ANY TYPE OF REACTION AFTER HANDLING LATEX PRODUCTS SUCH RUBBER GLOVES, CONDOMS, DIAPHRAGMS, BALLOONS, SOCKS, OR UNDERWEAR?NO LATEX ALLERGY : HAVE YOU EVER DEVELOPED ANY TYPE OF REACTION DURING OR AFTER DENTAL APPOINTMENT, VAGINAL/RECTAL EXAMINATION, SURGICAL PROCEDURE, OR ANY OTHER EXPOSURE?NO DATE ASKED : 02/25/2019 LATEX RISK : HAVE YOU EVER HAD ANY DIFFICULTY BREATHING OR HIVES AFTER EATING OR HANDLING ANY FRUITS, OR VEGETABLES; SUCH KIWI, BANANAS, STONE FRUITS, OR CHESTNUTSNO LATEX RISK : DO YOU HAVE A PREVIOUS PERSONAL HISTORY OF MORE THAN NINE SURGERIES, SPINA BIFIDA, OR REPEATED CATHERIZATIONS? NO LATEX RISK : ARE YOU FREQUENTLY EXPOSED TO LATEX PRODUCTS IN YOUR OCCUPATION?NO CAFFEINE CAFFEINE USE? 1 CUP/DAY ADVANCE DIRECTIVE ADVANCE DIRECTIVE DISCUSSED WITH PATIENT:YES 02/25/19 PT DOES NOT HAVE ANY ADVANCED DIRECTIVES AND HE DECLINES INFORMATION ON HCP AT THIS TIME. AD YAZIDISM NO SABIANIST BELIEFS THAT WOULD IMPACT HEALTH CARE. MARITAL STATUS: . ALCOHOL SCREENING POINTS: 0, INTERPRETATION: NEGATIVE. OCCUPATION: [employer], RETIRED/DISABLED. SEXUAL HX HAD SEX IN THE LAST 12 MONTHS (VAGINAL, ORAL, OR ANAL)?NO HAVE YOU EVER HAD AN STD?NO HOSPITALIZATION/MAJOR DIAGNOSTIC PROCEDURE SURGICALY RELATED REVIEW OF SYSTEMS REVIEWED BY: PROVIDER: JOSESITO LATHAM . CONSTITUTIONAL: ANY CHANGE IN YOUR MEDICAL CONDITION? NO . CHILLS NO . FEVER NO . INFECTION: DO YOU HAVE NEW INFECTIONS? NO . DO YOU HAVE HISTORY OF MRSA? NO . MUSCULOSKELETAL: ANY NEW PATTERNS OF PAIN OR NUMBNESS? YES . GASTROENTEROLOGY: ANY NEW CHANGE IN BOWEL CONTROL? NO . GENITOURINARY: ANY NEW CHANGE IN BLADDER CONTROL? NO . IS THERE A CHANCE YOU COULD BE ? NO . HEMATOLOGY/LYMPH: DO YOU TAKE ANY BLOOD THINNERS? (FOR EXAMPLE- COUMADIN, PLAVIX, AGGRENOX, PLATEL, PRADAXA, OR XARELTO) NO . WHEN WAS YOUR LAST DOSE? DATE: TIME: . NEUROLOGY: HAVE YOU FALLEN IN THE PAST 12 MONTHS? YES . ANY NEW EXTREMITY NUMBNESS OR WEAKNESS? NO . CARDIOLOGY: DO YOU HAVE A PACEMAKER OR DEFIBRILLATOR? NO . RESPIRATORY: HAVE YOU BEEN SICK IN THE PAST WEEK? NO . FEVER NO . FLU LIKE SYMPTOMS? NO . COUGH NO . INTEGUMENTARY: DO YOU HAVE ANY RASHES OR OPEN SORES? NO . ALLERGIC/IMMUNO: ARE YOU ALLERGIC TO IV DYE? NO . ANY NEW ALLERGIES? NO . PSYCHIATRIC: DO YOU HAVE THOUGHTS OF HURTING YOURSELF OR SOMEONE ELSE? NO . ARE YOU ABUSED, NEGLECTED, OR IN AN UNSAFE ENVIRONMENT? NO . ENDOCRINOLOGY: ARE YOU DIABETIC? NO . OTHER: DO YOU NEED ANY PRESCRIPTIONS? NO . IF YES, PLEASE LIST: ____ . ANY NEW PROBLEMS WITH YOUR MEDICATIONS? NO . WHEN DID YOU LAST EAT? ____ . WHEN DID YOU LAST DRINK? ____ . WHAT DID YOU LAST DRINK? ____ . NAME OF PERSON DRIVING YOU HOME? ____ . DO YOU HAVE ANY OTHER QUESTIONS OR CONCERNS NO . VITAL SIGNS WT 227 LBS, HT 76 IN, BMI 27.63 INDEX, BP 103/71 MM HG, HR 81 /MIN, RR 18 /MIN, TEMP 96.6 F, OXYGEN SAT % 95%, NA INITIALS AW 1323, REVIEWED BY: BERNADETTE. EXAMINATION GENERAL EXAMINATION: GENERAL AWAKE,ALERT , PLEASANT . PSYCH AFFECT NORMAL . LUNGS: LUNG ALEJANDRO ARE CLEAR TO AUSCULTATION BILATERALLY. GOOD MOVEMENT OF AIR . HEART: S1, S2 IN A REGULAR RATE AND RHYTHM. NO SIGNIFICANT MURMURS, RUBS OR GALLOPS NOTED . ASSESSMENTS MYALGIA, OTHER SITE - M79.18 (PRIMARY) LOWER THORACIC BACK PAIN - M54.6 TREATMENT MYALGIA, OTHER SITE CONTINUE COLACE CAPSULE, 100 MG, 1 CAPSULE NEEDED, ORALLY, ONCE A DAY REFILL OXYCODONE HCL TABLET, 5 MG, 1 TAB, ORALLY, Q8H PRN MDD3, 30 DAYS, 90, REFILLS 0 NOTES: RECOMMEND TRIAL OF BELBUCA 150 MCG AT 8 AM AND 8 PM DAILY. PATIENT WAS INSTRUCTED TO PLACE THIS INSIDE CHEEK UNTIL DISSOLVED TWICE DAILY. CONTINUE USE OF OXYCODONE 5 MG TABLET UP TO 3 TIMES A DAY IF NEEDED FOR BREAKTHROUGH PAIN. I HAVE INSTRUCTED PATIENT TO DOCUMENT NEED FOR OXYCODONE. I'M USING BELBUCA TO REDUCE NUMBER OF MORPHINE MILLIEQUIVALENT EXPOSURE AND DECREASE THE POTENTIAL FOR SIDE EFFECTS ASSOCIATED WITH C2 NARCOTIC ANALGESICS. ALL WORKING ALL DAY EVERY OTHER, ISTOP REGISTRY REVIEWED AND DEMONSTRATES COMPLLIANCE. BRINGS IN MEDICATIONS WHICH IS APPROPRIATE FOR WHAT WAS DISPENSED. RECENT URINE TOXICOLOGY REVIEWED. NO UNAUTHORIZED MEDICATIONS. NO ILLICIT SUBSTANCES AND PRESCRIBED MEDICATIONS WERE PRESENT. PREVENTIVE MEDICINE PAIN CLINIC TEACHING: MEDICATIONS [employer] PRINTED EDUCATION GIVEN TO PT AND WE ALSO DISCUSSED PT VERBALIZES UNDERSTANDING . PROCEDURE CODES FA211 ESTABILISHED PATIENT [facility] F[facility] CHARGE DISPOSITION & COMMUNICATION FOLLOW UP 6 WEEKS (REASON: MED MGMNT) ELECTRONICALLY SIGNED BY NOA JEWELL ON 03/30/2019 AT 03:54 PM EST DISCLAIMER : THIS IS A VISIT SUMMARY EXTRACTED FROM THE [employer] CHART. IT IS NOT A COPY OF THE [employer] PROGRESS NOTE. MTDD
== END ==
LOC: M PAIN 13:15
PROVIDERS: ATTEND Nurse Practitioner Family
DX: M79.18 Myalgia, other site (principal); M54.6 Pain in thoracic spine

== ENCOUNTER 2019-03-28 10:28 | Emergency (ER) | payer MEDICARE ==
[~2019-03-28] VITALS: Ht 193 cm; Wt 99.2 kg
[2019-03-28 12:35] VITALS: BP 118/72
--- NOTE | 2019-03-28 13:05 | REP ---
LUMBAR SPINE CT STUDY WITHOUT CONTRAST: HISTORY: Midline back pain post trauma. Comparison lumbar spine CT study is from February 11, 2019. FINDINGS: Scoliosis and dorsal screw-matthew fixation is seen bilaterally in the thoracic and upper lumbar spine, as on prior study. A dextroconvex lumbar curvature is again noted. There is a Schmorl's node at the superior endplate of the L4 vertebral body which is unchanged. There are degenerative disc changes at L3-4 disc. No lumbar vertebral fracture or collapse is seen, appearance is unchanged from February 11, 2019. Intrarenal calculi are again visible in the lower pole of the right kidney. There are bilateral old healed 12th rib fractures. No transverse process acute fracture is seen. There is facet osteoarthritic hypertrophy. No paravertebral soft-tissue mass. IMPRESSION: Right-sided intrarenal nephrolithiasis. Scoliosis fixation rods in place in the thoracic and upper lumbar spine as before. Postoperative changes. Degenerative disc disease changes with Schmorl's node at the L3-4, unchanged. No acute traumatic abnormality. Electronically Signed by Rd Fletcher MD 03/28/2019 01:18 P
--- NOTE | 2019-03-28 13:06 | REP ---
CT thoracic spine without contrast: History: Mid back pain status post trauma. Comparison study February 11, 2019. Findings: Scoliosis Morgan stabilization rods are noted dorsally in the thoracic and upper lumbar spine unchanged from the prior study. Thoracic vertebral body heights are preserved. No acute fracture or subluxation is seen. Postsurgical ankylosis changes are seen in the mid thoracic spine. Old healed rib fractures are noted posteriorly unchanged. Mild old wedging is seen and in one of the mid-thoracic vertebrae unchanged. Impression: Extensive fusion hardware again noted with scoliosis. No acute traumatic abnormality. Electronically Signed by Rd Fletcher MD 03/28/2019 01:18 P
== END 2019-03-28 12:38 | disposition home or self-care (01) ==
LOC: M ED 10:28
DX: S39.012A Strain of muscle, fascia and tendon of lower back, initial encounter (principal); X58.XXXA Exposure to other specified factors, initial encounter; Y92.89 Other specified places as the place of occurrence of the external cause; M51.9 Unspecified thoracic, thoracolumbar and lumbosacral intervertebral disc disorder; M41.9 Scoliosis, unspecified; N20.0 Calculus of kidney; I10 Essential (primary) hypertension; E78.5 Hyperlipidemia, unspecified; F33.9 Major depressive disorder, recurrent, unspecified; F41.9 Anxiety disorder, unspecified; N40.0 Benign prostatic hyperplasia without lower urinary tract symptoms; Z98.1 Arthrodesis status; Z79.899 Other long term (current) drug therapy; Z88.5 Allergy status to narcotic agent; Z88.8 Allergy status to other drugs, medicaments and biological substances

== ENCOUNTER → 2019-04-14 | Outpatient (CLI) | payer MEDICARE ==
--- NOTE | 2019-04-29 04:24 | ECWPNPC ---
PATIENT NAME: BRENDA CHEN : 1960 GENDER: MALE VISIT DATE: 04/14/2019 DISCHARGE DATE: 04/14/19 1355 VISIT LOCKED DATE TIME: PHYSICIAN: JOSESITO DESIR RESOURCE: JOSESITO DESIR REASON FOR APPOINTMENT 1. 4 WEEKS HISTORY OF PRESENT ILLNESS HISTORY OF PRESENT ILLNESS: HERE FOR FOLLOW-UP AND MEDICINE MANAGEMENT OF CHRONIC RIGHT SIDED PAIN. WE TRIED BELBUCA AT HIS LAST VISIT, BUT UNFORTUNATELY PRESCRIPTION COST WOULD BE $400 A MONTH AND THEY WERE NOT ABLE TO GET THAT. UNDER A LOT OF STRESS RECENTLY. HAS HAD AN EPISODE OF KIDNEY STONES. IS GOING THROUGH SOME MEDICAL ISSUES. RATING PAIN LEVEL AN 8/10 VAS. HE WOULD LIKE TO HAVE TRIGGER POINTS AGAIN THEY SEEM TO BE HELPFUL BUT DUE TO STRESS. HE WILL BE ABLE TO SCHEDULE THAT AT PRESENT. DISCUSSED MEDICATION TRIALS. CURRENTLY USING OXYCODONE 5 MG DAILY. HE IS UNABLE TO TOLERATE ANY LARGER DOSE SINEMET DUE TO SEVERE CONSTIPATION THAT AGGRAVATES HIS RIGHT SIDED ABDOMINAL PAIN. PAIN THE PATIENT DESCRIBES THE PAIN... FALL RISK SCREENING: SCREENING :NO FALLS REPORTED IN THE LAST YEAR CURRENT MEDICATIONS TAKING BISACODYL 10 MG SUPPOSITORY 1 SUPPOSITORY NEEDED RECTAL ONCE A DAY TAKING METHOCARBAMOL 750 MG TABLET 2 TABLETS ORALLY THREE TIMES A DAY TAKING BISACODYL 5 MG 2 TAB ORALLY DAILY TAKING GABAPENTIN 600 MG TABLET 2 TABLETS ORALLY THREE TIMES A DAY TAKING GAS-X EXTRA STRENGTH 125 MG TABLET CHEWABLE 1 TABLET AFTER MEALS AND AT BEDTIME NEEDED ORALLY THREE TIMES A DAY TAKING SALONPAS PAIN RELIEF PATCH 4% PATCH TOPICALLY NEEDED TAKING SALONPAS 4% CREAM TOPICALLY NEEDED TAKING DULOXETINE HCL 60 MG CAPSULE DELAYED RELEASE PARTICLES 1 CAPSULE ORALLY ONCE A DAY TAKING PANTOPRAZOLE SODIUM 40 MG TABLET DELAYED RELEASE 1 TABLET ORALLY ONCE A DAY TAKING CLONAZEPAM 2 MG TABLET 1 1/2 TABLET ORALLY TID 3 MG TAKING TAMSULOSIN HCL 0.4 MG CAPSULE EXTENDED RELEASE 2 CAP(S) ORALLY DAILY TAKING COLACE 100 MG CAPSULE 1 CAPSULE NEEDED ORALLY ONCE A DAY TAKING OXYCODONE HCL 5 MG TABLET 1 TAB ORALLY Q8H PRN MDD3 NOT-TAKING BELBUCA 150 MCG FILM 1 FILM TO THE GUM BUCALLY Q12H BID MDD2 NOT-TAKING NAPROXEN 500 MG TABLET 1 TABLET ORALLY TWICE A DAY NOT-TAKING ZOLOFT 50 MG TABLET 1 TABLET ORALLY ONCE A DAY NOT-TAKING SOMA 350 MG TABLET 1 TABLET NEEDED ORALLY TWICE A DAY MDD=2 NOT-TAKING CIALIS 20 MG TABLET 1 TABLET ORALLY 1 HOUR PRIOR TO SEXUAL INTERCOURSE NOT-TAKING MIRALAX PACKET 1 PACKET MIXED WITH 8 OUNCES OF FLUID ORALLY ONCE A DAY, NOTES: LAST NIGHT NOT-TAKING LYRICA 200 MG CAPSULE 1 CAPSULE ORALLY 3 CAPS PER DAY, NOTES: TODAY 0800 NOT-TAKING SOMA 350 MG TABLET 1 TABLET ORALLY 3 X DAY, NOTES: LAST QDRIS0QT NOT-TAKING PREDNISONE 5 MG TABLET 1 TABLET ORALLY ONCE A DAY NOT-TAKING ROBAXIN-750 750 MG TABLET 1 TABLET ORALLY EVERY 8 HRS, NOTES: LAST NIGHT 7PM NOT-TAKING LIDOCAINE 4 % CREAM DIRECTED EXTERNALLY APPLY TO PAINFUL AREAS OF BACK 4 TMES PER DAY NOT-TAKING LIDOCAINE 4 % GEL DIRECTED EXTERNALLY Q 6 HOURS TO PAINFUL AREA OF BACK NOT-TAKING LIDOCAINE 5 % PATCH 1 PATCH TO INTACT SKIN REMOVE AFTER 12 HOURS EXTERNALLY ON 12 HRS, OFF 12 HRS TO PAINFUL AREA OF BACK NOT-TAKING LINACLOTIDE 290 MCG CAPSULE 1 CAPSULE ORALLY ONCE A DAY NOT-TAKING ACETAMINOPHEN 650 MG TABLET 1 TABLET NEEDED ORALLY EVERY 6 HRS NOT-TAKING LIDOCAINE 2.5 CREAM 1 APPLICATION TO AFFECTED AREA NEEDED EXTERNALLY FOUR TIMES DAILY NOT-TAKING DUODERM CGF EXTRA THIN 1 MISCELLANEOUS DIRECTED EXTERNALLY TO SORE APPLY TO WOUND, CHANGE EVERY 3-5 DAYS UNTIL HEALED NOT-TAKING TEMOVATE 0.05 % CREAM 1 APPLICATION TO AFFECTED AREA EXTERNALLY TO ITCHY SPOTS ON BODY TWICE A DAY FOR TWO WEEKS, THEN THREE TIMES WEEKLY NOT-TAKING PREVACID 15 MG CAPSULE DELAYED RELEASE 1 CAPSULES BEFORE A MEAL ORALLY ONCE A DAY NOT-TAKING OSTEO BI-FLEX REGULAR STRENGTH 250-200 MG TABLET 1 TAB ORALLY TWICE DAILY NOT-TAKING LOVASTATIN 40 MG TABLET 1 TABLET WITH A MEAL ORALLY ONCE A DAY MEDICATION LIST REVIEWED AND RECONCILED WITH THE PATIENT PAST MEDICAL HISTORY DEPRESSION HYPERLIPDEMIA GERD IBS ARTHRITIS ANXIETY 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 SCOLIOSIS KIDNEY STONES PROSTATITS COMPRESSION FX THORACIC VERTEBRA INTERCOSTAL NEURITIS NEUROGENIC BOWEL SPASTICITY TBI PSEUDO HERNIA ALLERGIES CODEINE SULFATE: HIVES - ALLERGY HEPARIN: PROTIEN A IN BLOOD CLOGS DIALYSIS MACHINE - CONTRAINDICATION TIZANIDINE HCL: NAUSEA/VOMITING - ALLERGY SURGICAL HISTORY KIDNEY STONE 2004 T3-LUMBAR SURGERY MATT IN PLACE 01/03/14 CHOLECYSTECTOMY 11/2014 THORACIC DECOMPRESSION AND REMOVAL OF BONE PIECES 05/02/15 SCREENING COLONOSCOPY 2018 FAMILY HISTORY FATHER: ALIVE, ENLARGED PROSTATE, DIAGNOSED WITH HYPERTENSION MOTHER: ALIVE, DEMENTIA, HYPERTENSION SIBLINGS: ALIVE, DIABETES 1 SISTER(S) . 1 SON(S) , 1 DAUGHTER(S) - HEALTHY. NO KNOWN FAMILY HISTORY OF ANY UROLOGICALLY RELATED DISEASES\/CANCERS. SON-ANXIETY. SOCIAL HISTORY GENERAL: TOBACCO USE ARE YOU A:: NEVER SMOKER. HIV / HEP-C SCREENING HIV TEST OFFERED TO PATIENT:YES DATE OFFERED:05/28/2018 TEST ACCEPTED:NO HEP-C TEST OFFERED TO PATIENT:YES DATE OFFERED:05/28/2018 REASON:PATIENT DECLINED TEST ACCEPTED:NO REASON:PATIENT DECLINED BROCHURE PROVIDED TO PATIENTNO OTHERS AT HOME: . EDUCATION LEVEL OF EDUCATION:COLLEGE DIET: REGULAR. LANGUAGE PORTUGUESE. DOMESTIC VIOLENCE DO YOU FEEL SAFE IN YOUR ENVIRONMENT?YES RECREATIONAL DRUG USE DENIES. EXERCISE: LIMITED DUE TO BACK INJURY. LEARNING BARRIERS / SPECIAL NEEDS BARRIERS TO LEARNING?NO HEARING IMPAIRED?NO VISION IMPAIRED?YES COGNITIVELY IMPAIRED?NO :CORRECTIVE LENSES READINESS TO LEARN?YES LEARNING PREFERENCES?YES :BOOKLETS, HANDOUTS LEARNING CAPABILITIES PRESENT?YES EMOTIONAL BARRIERS?NO SPECIAL DEVICES?YES :CANE PARTITION SETTER NEEDED?NO PAIN CLINIC PFS, CLERGY, PUBLIC HEALTH REFERRALS WAS THE PROVIDER NOTIFIED OF ANY PERTINENT INFO?YES HAS THE PATIENT BEEN EDUCATED REGARDING HIS/HER PLAN OF CARE?YES HAS THE PATIENT BEEN EDUCATED REGARDING PAIN, THE RISK FOR PAIN, THE IMPORTANCE OF EFFECTIVE PAIN MANAGEMENT, AND THE PAIN ASSESSMENT PROCESS?YES LATEX QUESTIONNAIRE LATEX ALLERGY : HAVE YOU EVER DEVELOPED ANY TYPE OF REACTION AFTER HANDLING LATEX PRODUCTS SUCH RUBBER GLOVES, CONDOMS, DIAPHRAGMS, BALLOONS, SOCKS, OR UNDERWEAR?NO LATEX ALLERGY : HAVE YOU EVER DEVELOPED ANY TYPE OF REACTION DURING OR AFTER DENTAL APPOINTMENT, VAGINAL/RECTAL EXAMINATION, SURGICAL PROCEDURE, OR ANY OTHER EXPOSURE?NO LATEX RISK : HAVE YOU EVER HAD ANY DIFFICULTY BREATHING OR HIVES AFTER EATING OR HANDLING ANY FRUITS, OR VEGETABLES; SUCH KIWI, BANANAS, STONE FRUITS, OR CHESTNUTSNO LATEX RISK : DO YOU HAVE A PREVIOUS PERSONAL HISTORY OF MORE THAN NINE SURGERIES, SPINA BIFIDA, OR REPEATED CATHERIZATIONS? NO LATEX RISK : ARE YOU FREQUENTLY EXPOSED TO LATEX PRODUCTS IN YOUR OCCUPATION?NO DATE ASKED : 04/14/2019 CAFFEINE CAFFEINE USE? 1 CUP/DAY ADVANCE DIRECTIVE ADVANCE DIRECTIVE DISCUSSED WITH PATIENT:YES PT DOES NOT HAVE ANY ADVANCED DIRECTIVES AND HE DECLINES INFORMATION ON HCP AT THIS TIME. HOLINESS NO DRUZE BELIEFS THAT WOULD IMPACT HEALTH CARE. MARITAL STATUS: . ALCOHOL SCREENING POINTS: 0, INTERPRETATION: NEGATIVE. OCCUPATION: [employer], RETIRED/DISABLED. SEXUAL HX HAD SEX IN THE LAST 12 MONTHS (VAGINAL, ORAL, OR ANAL)?NO HAVE YOU EVER HAD AN STD?NO 2019-04-14 REVIEWED WITH PATIENT DS. HOSPITALIZATION/MAJOR DIAGNOSTIC PROCEDURE SURGICALY RELATED REVIEW OF SYSTEMS REVIEWED BY: PROVIDER: JOSESITO LATHAM . CONSTITUTIONAL: ANY CHANGE IN YOUR MEDICAL CONDITION? YES, KIDNEY STONES, SKIN ON BACK BECOMING VERY THIN PER ORTHOPEDIC DOC, HAPPENS WITH INCREASED AGE . CHILLS NO . FEVER NO . INFECTION: DO YOU HAVE NEW INFECTIONS? NO . DO YOU HAVE HISTORY OF MRSA? NO . MUSCULOSKELETAL: ANY NEW PATTERNS OF PAIN OR NUMBNESS? NO . GASTROENTEROLOGY: ANY NEW CHANGE IN BOWEL CONTROL? NO . GENITOURINARY: ANY NEW CHANGE IN BLADDER CONTROL? NO . IS THERE A CHANCE YOU COULD BE ? NO . HEMATOLOGY/LYMPH: DO YOU TAKE ANY BLOOD THINNERS? (FOR EXAMPLE- COUMADIN, PLAVIX, AGGRENOX, PLATEL, PRADAXA, OR XARELTO) NO . WHEN WAS YOUR LAST DOSE? DATE: TIME: . NEUROLOGY: HAVE YOU FALLEN IN THE PAST 12 MONTHS? NO . ANY NEW EXTREMITY NUMBNESS OR WEAKNESS? YES, PT STATES THAT TINGLING IN TOES AND FINGERS AT NIGHT. . CARDIOLOGY: DO YOU HAVE A PACEMAKER OR DEFIBRILLATOR? NO . RESPIRATORY: HAVE YOU BEEN SICK IN THE PAST WEEK? NO . FEVER NO . FLU LIKE SYMPTOMS? NO . COUGH NO . INTEGUMENTARY: DO YOU HAVE ANY RASHES OR OPEN SORES? NO . ALLERGIC/IMMUNO: ARE YOU ALLERGIC TO IV DYE? NO . ANY NEW ALLERGIES? NO . PSYCHIATRIC: DO YOU HAVE THOUGHTS OF HURTING YOURSELF OR SOMEONE ELSE? NO . ARE YOU ABUSED, NEGLECTED, OR IN AN UNSAFE ENVIRONMENT? NO . ENDOCRINOLOGY: ARE YOU DIABETIC? NO . OTHER: DO YOU NEED ANY PRESCRIPTIONS? PT NOT TAKING BELBUCA DUE TO EXPENSE . IF YES, PLEASE LIST: ____ . ANY NEW PROBLEMS WITH YOUR MEDICATIONS? NO . WHEN DID YOU LAST EAT? ____ . WHEN DID YOU LAST DRINK? ____ . WHAT DID YOU LAST DRINK? ____ . NAME OF PERSON DRIVING YOU HOME? ____ . DO YOU HAVE ANY OTHER QUESTIONS OR CONCERNS NO . VITAL SIGNS WT 225.0 LBS, HT 76 IN, BMI 27.38 INDEX, BP 136/88 MM HG, HR 82 /MIN, RR 18 /MIN, TEMP 97.0 F, OXYGEN SAT % 97%, SAFE IN ENV? (Y/N) Y, NA INITIALS AW 1309, REVIEWED BY: DS. EXAMINATION GENERAL EXAMINATION: GENERAL AWAKE,ALERT , PLEASANT . PSYCH AFFECT NORMAL . LUNGS: LUNG ALEJANDRO ARE CLEAR TO AUSCULTATION BILATERALLY. GOOD MOVEMENT OF AIR . HEART: S1, S2 IN A REGULAR RATE AND RHYTHM. NO SIGNIFICANT MURMURS, RUBS OR GALLOPS NOTED . ASSESSMENTS MYALGIA, OTHER SITE - M79.18 (PRIMARY) LOWER THORACIC BACK PAIN - M54.6 TREATMENT MYALGIA, OTHER SITE CONTINUE OXYCODONE HCL TABLET, 5 MG, 1 TAB, ORALLY, Q8H PRN MDD3 START BUTRANS PATCH WEEKLY, 10 MCG/HR, 1 PATCH TO SKIN, TRANSDERMAL, 1 PATCH Q7 DAYS=MDD, 30 DAYS, 4, REFILLS 2 NOTES: ISTOP REGISTRY REVIEWED AND DEMONSTRATES COMPLLIANCE. , RISKS OF NARCOTIC/OPIOD MEDICATIONS INCLUDES BUT IS NOT LIMITED TO RISK OF DEPENDANCE/DEVELOPMENT OF ADDICTION, MOOD DISTURBANCE AND DEPRESSION, OSTEOPOROSIS, HORMONAL AND LABIDAL CHANGES, RESPIRATORY DEPRESSION AND . PATIENT IS ADVISED NOT TO DRIVE OR DRINK ALCOHOL WHILE ON THESE MEDICATIONS, [facility] NARCOTIC AGREEMENT WAS REVIEWED AND SIGNED TODAY BY THE PATIENT. SEE ATTACHED DOCUMENT FOR FULL DETAILS; SPECIFIC ISSUES WERE REVIEWED: 1) KEEP PAIN MEDS IN THEIR ORIGINAL BOTTLES AND ANY WEEKLY PLANNERS ARE TO BE BROUGHT TO THE PAIN CENTER AT EVERY VISIT. 2) THE PATIENT IS NOT TO INCREASE DOSING OR TIMING OF THEIR PAIN MEDICATION WITHOUT SPECIFIC DIRECTION OF THEIR PAIN CENTERPROVIDER (NOT ER OR OTHER PROVIDERS). 3) ALL PAIN MEDS ARE TO BE KEPT SECURED, IN A LOCKED BOX. 4) NO PAIN MEDS ARE TO BE SHARED WITH ANY OTHER PERSON FOR ANY REASON. 5) NO PAIN MEDS MAY BE TAKEN FROM ANY FRIENDS OR RELATIVES FOR ANY REASON 6) NO MEDS OR SUBSTANCES WHICH ARE NOT LEGAL ARE TO BE USED- NO MARIJUANA, NO COCAINE, AMPHETAMINES, HEROIN, OR OTHERS ARE EVER TO BE USED. 7)URINE TESTING IS DONE TO ACCOUNT FOR MEDS AND SUBSTANCES BEING TAKEN AND WILL BE DONE RANDOMLY. PREVENTIVE MEDICINE PAIN CLINIC TEACHING: THE PATIENT HAS BEEN EDUCATED REGARDING PAIN, THE RISK FOR PAIN, THE IMPORTANCE OF EFFECTIVE PAIN MANAGEMENT, AND THE PAIN ASSESSMENT PROCESS. : REVIEWED AND DISCUSSED TREATMENT PLAN WITH PATIENT, REVIEWED WRITTEN EDUCATIONAL MATERIAL ON BUTRANS PATCH, PT ACKNOWLEDGED UNDERSTANDING,DS PROCEDURE CODES FA211 ESTABILISHED PATIENT [facility] CHARGE DISPOSITION & COMMUNICATION FOLLOW UP 6 WEEKS (REASON: MED MGMNT) ELECTRONICALLY SIGNED BY NOA JEWELL ON 04/28/2019 AT 01:03 PM EST DISCLAIMER : THIS IS A VISIT SUMMARY EXTRACTED FROM THE [employer] CHART. IT IS NOT A COPY OF THE [employer] PROGRESS NOTE. RAMÍREZ
== END ==
LOC: M PAIN 13:00
PROVIDERS: ATTEND Nurse Practitioner Family
DX: M79.18 Myalgia, other site (principal); M54.6 Pain in thoracic spine

== ENCOUNTER 2019-06-20 19:35 | Emergency (ER) | payer MEDICARE ==
[~2019-06-20] VITALS: Ht 195.6 cm; Wt 106.8 kg
[2019-06-20 19:36] VITALS: BP 122/83
[2019-06-20 20:22] LABS: BASO % 0.7 % (0.0-1.0); EOS # 0.1 10^3/uL (0.0-0.5); EOS % 2.3 % (0.0-3.0); HEMATOCRIT 48.2 % (42.0-52.0); LYMPH # 1.4 10^3/uL (1.5-5.0); LYMPH % 23.5 % (24.0-44.0); MEAN CORPUSCULAR HEMOGLOBIN 30.4 pg (27.0-33.0); MEAN CORPUSCULAR HGB CONC 33.2 g/dl (32.0-36.5); MEAN CORPUSCULAR VOLUME 91.6 fl (80.0-96.0); MONO # 0.5 10^3/uL (0.0-0.8); MONO % 9.2 % (0.0-5.0); NEUTROPHILS # 3.7 10^3/uL (1.5-8.5); NEUTROPHILS % 63.8 % (36.0-66.0); PLATELET COUNT, AUTOMATED 279 10^3/uL (150-450); RED BLOOD COUNT 5.26 10^6/uL (4.30-6.10); WHITE BLOOD COUNT 5.7 10^3/uL (4.0-10.0)
[2019-06-20 20:28] LABS: APPEARANCE, URINE CLEAR (CLEAR); BACTERIA, URINE AUTO NEGATIVE (NEGATIVE); BILIRUBIN, URINE AUTO 2+ (NEGATIVE); BLOOD, URINE BLOOD NEGATIVE (NEGATIVE); COLOR, URINE YELLOW (YELLOW); GLUCOSE, URINE (UA) AUTO NEGATIVE (NEGATIVE); KETONE, URINE AUTO TRACE mg/dL (NEGATIVE); LEUKOCYTE ESTERASE, URINE AUTO NEGATIVE (NEGATIVE); MUCUS, URINE SMALL (NEGATIVE); NITRITE, URINE AUTO NEGATIVE (NEGATIVE); PROTEIN, URINE AUTO NEGATIVE (NEGATIVE); RBC, URINE AUTO 1 /HPF (0-3); SPECIFIC GRAVITY URINE AUTO 1.025 (1.002-1.035); SQUAMOUS EPITHELIAL CELL UR AU 0 /HPF (0-6); UROBILINOGEN, URINE AUTO 0.2 mg/dL (0.0-2.0); WBC, URINE AUTO 2 /HPF (0-3)
[2019-06-20] MEDS ORDERED: METH750T2 (20:38)
[2019-06-20] MEDS ORDERED: BELB150M (20:38)
[2019-06-20] MEDS ORDERED: BUPR10DI3 (20:38)
[2019-06-20] MEDS ORDERED: FLUO20CA22 (20:38)
[2019-06-20] MEDS ORDERED: [UNRECOGNIZED DRUG - CODE] (20:38)
[2019-06-20] MEDS ORDERED: ISOVUE-370 76% 100ML VIAL (Q9967) As Ordered ONE (20:44)
[2019-06-20] MEDS: GASTROGRAFIN SOLUTION 30ML PO SCH ×2 (20:59→21:33)
[2019-06-20 21:01] LABS: ALBUMIN 3.9 GM/DL (3.2-5.2); BILIRUBIN,DIRECT 0.2 MG/DL (0.0-0.2); BILIRUBIN,TOTAL 0.5 MG/DL (0.2-1.0); TOTAL PROTEIN 7.6 GM/DL (6.4-8.2)
--- NOTE | 2019-06-20 22:40 | REPVR ---
PROCEDURE INFORMATION: Exam: CT Abdomen And Pelvis With Contrast Exam date and time: 06/20/2019 10:22 PM Age: 59 years old Clinical indication: Abdominal pain; Localized; Right; Additional info: Ruq/rmq pain, "pseudo hernia" d/t thoracic spinal cord injur TECHNIQUE: Imaging protocol: Computed tomography of the abdomen and pelvis with intravenous contrast. Radiation optimization: All CT scans at this facility use at least one of these dose optimization techniques: automated exposure control; mA and/or kV adjustment per patient size (includes targeted exams where dose is matched to clinical indication); or iterative reconstruction. Contrast material: ISOVUE 370; Contrast volume: 100 ml; Contrast route: IV; COMPARISON: CT ABD/PEL W/IV CONTRAST ONLY 2018-09-13 19:49 FINDINGS: Liver: 1.6 cm cyst in the liver dome. Gallbladder and bile ducts: Cholecystectomy. Pancreas: Normal. No ductal dilation. Spleen: Normal. No splenomegaly. Adrenals: Normal. No mass. Kidneys and ureters: Right inferior renal pole 3 cm cyst. Inferior right renal pole 5 mm nonobstructing calculus. No renal hydronephrosis. Stomach and bowel: Gastric distension. Appendix: No evidence of appendicitis. Intraperitoneal space: Unremarkable. No free air. No significant fluid collection. Vasculature: Unremarkable. No abdominal aortic aneurysm. Lymph nodes: Unremarkable. No enlarged lymph nodes. Bladder: Unremarkable as visualized. Reproductive: Mild prostate gland enlargement. Bones/joints: Numerous chronic healed rib fractures. Thoracic lumbar posterior fusion. Moderate scoliosis. Superior T12 and L4 endplate chronic compression deformities. Spinal hardware is intact. Moderate lumbar facet arthropathy. Chronic right lumbar transverse spinous process fractures. Soft tissues: Left inguinal fat protruding small hernia. IMPRESSION: No acute findings. Electronically signed by: Daniel Iyer On 06/20/2019 22:39:24 PM
[2019-06-20] MEDS ORDERED: PERCOCET 5MG/325MG TAB PO ONE (23:00)
[2019-06-20] MEDS ORDERED: KETOROLAC 30 MG/ML VIAL (J1885) IV ONE (23:00)
[2019-06-20] MEDS ORDERED: ACETAMINOPHEN TAB 650MG DOSE (2X325MG) PO ONE (23:00)
[2019-06-20] MEDS ORDERED: KETO10TAB PO (23:09)
--- NOTE | 2019-06-21 11:35 | ECGEPIP ---
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
== END 2019-06-20 23:40 | disposition home or self-care (01) ==
LOC: M ED 19:35
DX: R10.11 Right upper quadrant pain (principal); I10 Essential (primary) hypertension; E78.5 Hyperlipidemia, unspecified; F03.90 Unspecified dementia, unspecified severity, without behavioral disturbance, psychotic disturbance, mood disturbance, and anxiety; K21.9 Gastro-esophageal reflux disease without esophagitis; Z79.899 Other long term (current) drug therapy; Z88.5 Allergy status to narcotic agent; Z88.8 Allergy status to other drugs, medicaments and biological substances
CPT/HCPCS: 74177; 80047; 80076; 81001; 82150; 83690; 85025; 93005; 96374; 99284; J1885; Q9963; Q9967

== ENCOUNTER 2019-07-14 14:27 | Emergency (ER) | payer MEDICARE ==
[~2019-07-14] VITALS: Ht 195.6 cm; Wt 103.4 kg
[~2019-07-14 14:27] MED LIST changes: +BELB150M; +BUPR10DI3; +FLUO20CA22; +KETO10TAB PO; +METH750T2; +[UNRECOGNIZED DRUG - CODE]
[2019-07-14] MEDS ORDERED: ROSU10TA6 (14:35)
[2019-07-14] MEDS ORDERED: GABA600T4 (14:35)
[2019-07-14] MEDS ORDERED: NS 1,000 ML IV ONE (15:00)
[2019-07-14] MEDS ORDERED: KETOROLAC 30 MG/ML 1ML VIAL IV ONE (15:00)
[2019-07-14 15:25] LABS: BASO % 0.4 % (0.0-1.0); EOS # 0.2 10^3/uL (0.0-0.5); EOS % 2.9 % (0.0-3.0); HEMATOCRIT 43.5 % (42.0-52.0); HEMOGLOBIN 14.4 g/dl (13.5-17.5); LYMPH # 1.2 10^3/uL (1.5-5.0); LYMPH % 23.2 % (24.0-44.0); MEAN CORPUSCULAR HEMOGLOBIN 29.9 pg (27.0-33.0); MEAN CORPUSCULAR HGB CONC 33.1 g/dl (32.0-36.5); MEAN CORPUSCULAR VOLUME 90.4 fl (80.0-96.0); MONO # 0.4 10^3/uL (0.0-0.8); MONO % 7.9 % (0.0-5.0); NEUTROPHILS # 3.4 10^3/uL (1.5-8.5); NEUTROPHILS % 65.2 % (36.0-66.0); PLATELET COUNT, AUTOMATED 237 10^3/uL (150-450); RED BLOOD COUNT 4.81 10^6/uL (4.30-6.10); WHITE BLOOD COUNT 5.2 10^3/uL (4.0-10.0)
[2019-07-14 15:49] LABS: ALBUMIN 3.7 GM/DL (3.2-5.2); ALT/SGPT 26 U/L (12-78); BILIRUBIN,DIRECT 0.1 MG/DL (0.0-0.2); BILIRUBIN,TOTAL 0.5 MG/DL (0.2-1.0); BLOOD UREA NITROGEN 21 MG/DL (7-18); CALCIUM LEVEL 9.1 MG/DL (8.8-10.2); CARBON DIOXIDE LEVEL 31 MEQ/L (21-32); CHLORIDE LEVEL 102 MEQ/L (98-107); CREATININE FOR GFR 1.26 MG/DL (0.70-1.30); GLOMERULAR FILTRATION RATE > 60.0 (>49); GLUCOSE, FASTING 99 MG/DL (70-100); LIPASE 75 U/L (73-393); POTASSIUM SERUM 4.3 MEQ/L (3.5-5.1); SODIUM LEVEL 139 MEQ/L (136-145); TOTAL PROTEIN 7.3 GM/DL (6.4-8.2)
[2019-07-14] MEDS: GASTROGRAFIN SOLUTION 30ML PO SCH ×2 (16:28→17:00)
[2019-07-14] MEDS ORDERED: ISOVUE-370 76% 100ML VIAL As Ordered ONE (17:52)
--- NOTE | 2019-07-14 18:36 | REPVR ---
PROCEDURE INFORMATION: Exam: CT Abdomen And Pelvis With Contrast Exam date and time: 07/14/2019 6:05 PM Age: 59 years old Clinical indication: Abdominal pain; Additional info: Ruq, rlq pain TECHNIQUE: Imaging protocol: Computed tomography of the abdomen and pelvis with intravenous contrast. Radiation optimization: All CT scans at this facility use at least one of these dose optimization techniques: automated exposure control; mA and/or kV adjustment per patient size (includes targeted exams where dose is matched to clinical indication); or iterative reconstruction. Contrast material: ISO 370; Contrast volume: 100 ml; Contrast route: IV; COMPARISON: CT ABD/PEL W/IV ORAL CONTRAS 06/20/2019 10:19 PM FINDINGS: Lungs: Bibasilar atelectatic changes are identified. Liver: At the dome of the liver, there is a 1.7 cm hypodense stable lesion, consistent with the previously described cyst. Gallbladder and bile ducts: Surgical clips are identified within the gallbladder fossa, compatible with cholecystectomy. There is mild intra and extrahepatic biliary dilatation. The common bile duct measures 8 mm in diameter. Pancreas: Atrophy of the pancreas visualized. Spleen: Unremarkable. No splenomegaly. Adrenals: No mass. Kidneys and ureters: A nonobstructing right renal calculus is identified measuring 7 mm. At the lower pole of the right kidney, there is a 2.8 cm hypodense simple appearing cyst. No hydronephrosis bilaterally. Stomach and bowel: Colonic diverticula are identified, without acute inflammatory stranding of the adjacent mesentery. No bowel obstruction. Appendix: The appendix is not visualized. Intraperitoneal space: No free air. No significant fluid collection. Vasculature: Mild atherosclerosis of the distal abdominal aorta. No aortic aneurysm. Lymph nodes: No enlarged lymph nodes. Bladder: Unremarkable as visualized. Reproductive: A tiny calcification is identified within the prostate. Mild enlargement of the prostate was described on the prior study and is stable in size on current images. Bones/joints: Postoperative changes are identified with fusion of the upper lumbar spine and extending into the thoracic spine. There is dextroscoliosis of the lower lumbar spine, with angulation or scoliosis of the thoracic spine. The thoracic spine is incompletely visualized. There is increased concavity /compression of the superior T12 and L4 endplates, stable compared to the prior study. Old fractures are identified of multiple lower ribs bilaterally. Chronic right-sided transverse process fractures are identified, similar to the prior study. Soft tissues: Herniation of fat visualized into the left inguinal canal. IMPRESSION: 1. There is mild intra and extrahepatic biliary dilatation. Cholecystectomy. Correlation with serum bilirubin recommended. 2. A nonobstructing right renal calculus is identified. At the lower pole of the right kidney, there is a 2.8 cm simple appearing cyst. No hydronephrosis bilaterally. 3. Diverticulosis. 4. Additional findings described above. COMMENTS: Consistent with the [employer]'s Incidental Findings Committee white paper (J Am Ellie Radiol 2018): Any incidental cystic renal lesion classified in this report as too small to characterize or simple appearing is likely a benign cyst. No follow-up imaging is recommended for these lesions per consensus recommendations based on imaging criteria. Electronically signed by: Eliud Fatima On 07/14/2019 18:36:37 PM
[2019-07-14 19:37] VITALS: BP 106/70
--- NOTE | 2019-07-16 13:12 | ED PDOC ---
Post-Departure Follow-Up dr prabhakar faxed formal read of ct abd/p for fu Nayan Perez MD July 16, 2019 13:12
== END 2019-07-14 19:45 | disposition home or self-care (01) ==
LOC: M ED 14:27
DX: R10.9 Unspecified abdominal pain (principal); R35.0 Frequency of micturition; Z87.442 Personal history of urinary calculi; I10 Essential (primary) hypertension; E78.5 Hyperlipidemia, unspecified; K21.9 Gastro-esophageal reflux disease without esophagitis; F03.90 Unspecified dementia, unspecified severity, without behavioral disturbance, psychotic disturbance, mood disturbance, and anxiety; Z87.828 Personal history of other (healed) physical injury and trauma; Z87.81 Personal history of (healed) traumatic fracture; F32.9 Major depressive disorder, single episode, unspecified; F41.9 Anxiety disorder, unspecified; K58.9 Irritable bowel syndrome, unspecified; Z88.5 Allergy status to narcotic agent; Z88.8 Allergy status to other drugs, medicaments and biological substances; Z79.899 Other long term (current) drug therapy
CPT/HCPCS: 74177; 80048; 80076; 81001; 83605; 83690; 85025; 93041; 96361; 96374; 99285; J1885; Q9963; Q9967

== ENCOUNTER → 2019-08-04 | Outpatient (CLI) | payer MEDICARE ==
[~2019-08-04] MED LIST changes: +GABA600T4; +ROSU10TA6
--- NOTE | 2019-08-07 03:33 | ECWPNPC ---
PATIENT NAME: BRENDA CHEN : 1960 GENDER: MALE VISIT DATE: 08/04/2019 DISCHARGE DATE: 08/04/19 1447 VISIT LOCKED DATE TIME: PHYSICIAN: JOSESITO DESIR RESOURCE: JOSESITO DESIR REASON FOR APPOINTMENT 1. MEDS PAT DONE HISTORY OF PRESENT ILLNESS HISTORY OF PRESENT ILLNESS: HERE FOR FOLLOW-UP AND MEDICINE MANAGEMENT OF CHRONIC RIGHT SIDED ABDOMEN AND LOW BACK PAIN. RATING PAIN VAS 7/10. DESCRIBES PAIN CONSTANT AND ACHING. CURRENTLY USING OXYCODONE 5 MG TABLET 3 TIMES A DAY, WHICH SEEMS TO BE HELPFUL AND WITH LEAST AMOUNT OF SIDE EFFECTS. HE TRIALED BUTRANS-PATCH WITHOUT IMPROVEMENT IN HIS PAIN RECENTLY. DISCUSSED MEDICATION AND TREATMENT OPTIONS. PAIN THE PATIENT DESCRIBES THE PAIN... FALL RISK SCREENING: SCREENING :NO FALLS REPORTED IN THE LAST YEAR CURRENT MEDICATIONS TAKING BISACODYL 10 MG SUPPOSITORY 1 SUPPOSITORY NEEDED RECTAL ONCE A DAY TAKING METHOCARBAMOL 750 MG TABLET 2 TABLETS ORALLY THREE TIMES A DAY TAKING BISACODYL 5 MG 2 TAB ORALLY DAILY TAKING GABAPENTIN 600 MG TABLET 2 TABLETS ORALLY THREE TIMES A DAY TAKING GAS-X EXTRA STRENGTH 125 MG TABLET CHEWABLE 1 TABLET AFTER MEALS AND AT BEDTIME NEEDED ORALLY THREE TIMES A DAY TAKING SALONPAS PAIN RELIEF PATCH 4% PATCH TOPICALLY NEEDED TAKING SALONPAS 4% CREAM TOPICALLY NEEDED TAKING DULOXETINE HCL 60 MG CAPSULE DELAYED RELEASE PARTICLES 1 CAPSULE ORALLY ONCE A DAY TAKING PANTOPRAZOLE SODIUM 40 MG TABLET DELAYED RELEASE 1 TABLET ORALLY ONCE A DAY TAKING CLONAZEPAM 0.5 MG TABLET 1 TABLET ORALLY BID TAKING TAMSULOSIN HCL 0.4 MG CAPSULE EXTENDED RELEASE 2 CAP(S) ORALLY DAILY TAKING COLACE 100 MG CAPSULE 1 CAPSULE NEEDED ORALLY ONCE A DAY TAKING OXYCODONE HCL 5 MG TABLET 1 TO 2 TAB ORALLY Q6H PRN MDD4 TAKING PROZAC 10 MG CAPSULE 1 CAPSULE ORALLY ONCE A DAY NOT-TAKING BUTRANS 20 MCG/HR PATCH WEEKLY 1 PATCH TO SKIN TRANSDERMAL 1 PATCH Q7 DAYS=MDD NOT-TAKING BELBUCA 150 MCG FILM 1 FILM TO THE GUM BUCALLY Q12H BID MDD2 NOT-TAKING NAPROXEN 500 MG TABLET 1 TABLET ORALLY TWICE A DAY NOT-TAKING ZOLOFT 50 MG TABLET 1 TABLET ORALLY ONCE A DAY NOT-TAKING SOMA 350 MG TABLET 1 TABLET NEEDED ORALLY TWICE A DAY MDD=2 NOT-TAKING CIALIS 20 MG TABLET 1 TABLET ORALLY 1 HOUR PRIOR TO SEXUAL INTERCOURSE NOT-TAKING MIRALAX PACKET 1 PACKET MIXED WITH 8 OUNCES OF FLUID ORALLY ONCE A DAY, NOTES: LAST NIGHT NOT-TAKING LYRICA 200 MG CAPSULE 1 CAPSULE ORALLY 3 CAPS PER DAY, NOTES: TODAY 0800 NOT-TAKING SOMA 350 MG TABLET 1 TABLET ORALLY 3 X DAY, NOTES: LAST [id number] NOT-TAKING PREDNISONE 5 MG TABLET 1 TABLET ORALLY ONCE A DAY NOT-TAKING ROBAXIN-750 750 MG TABLET 1 TABLET ORALLY EVERY 8 HRS, NOTES: LAST NIGHT 7PM NOT-TAKING LIDOCAINE 4 % CREAM DIRECTED EXTERNALLY APPLY TO PAINFUL AREAS OF BACK 4 TMES PER DAY NOT-TAKING LIDOCAINE 4 % GEL DIRECTED EXTERNALLY Q 6 HOURS TO PAINFUL AREA OF BACK NOT-TAKING LIDOCAINE 5 % PATCH 1 PATCH TO INTACT SKIN REMOVE AFTER 12 HOURS EXTERNALLY ON 12 HRS, OFF 12 HRS TO PAINFUL AREA OF BACK NOT-TAKING LINACLOTIDE 290 MCG CAPSULE 1 CAPSULE ORALLY ONCE A DAY NOT-TAKING ACETAMINOPHEN 650 MG TABLET 1 TABLET NEEDED ORALLY EVERY 6 HRS NOT-TAKING LIDOCAINE 2.5 CREAM 1 APPLICATION TO AFFECTED AREA NEEDED EXTERNALLY FOUR TIMES DAILY NOT-TAKING DUODERM CGF EXTRA THIN 1 MISCELLANEOUS DIRECTED EXTERNALLY TO SORE APPLY TO WOUND, CHANGE EVERY 3-5 DAYS UNTIL HEALED NOT-TAKING TEMOVATE 0.05 % CREAM 1 APPLICATION TO AFFECTED AREA EXTERNALLY TO ITCHY SPOTS ON BODY TWICE A DAY FOR TWO WEEKS, THEN THREE TIMES WEEKLY NOT-TAKING PREVACID 15 MG CAPSULE DELAYED RELEASE 1 CAPSULES BEFORE A MEAL ORALLY ONCE A DAY NOT-TAKING OSTEO BI-FLEX REGULAR STRENGTH 250-200 MG TABLET 1 TAB ORALLY TWICE DAILY NOT-TAKING LOVASTATIN 40 MG TABLET 1 TABLET WITH A MEAL ORALLY ONCE A DAY MEDICATION LIST REVIEWED AND RECONCILED WITH THE PATIENT PAST MEDICAL HISTORY DEPRESSION HYPERLIPDEMIA GERD IBS ARTHRITIS ANXIETY 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 SCOLIOSIS KIDNEY STONES PROSTATITS COMPRESSION FX 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 1 SON(S) , 1 DAUGHTER(S) - HEALTHY. NO KNOWN FAMILY HISTORY OF ANY UROLOGICALLY RELATED DISEASES\/CANCERS. SON-ANXIETY. SOCIAL HISTORY GENERAL: TOBACCO USE ARE YOU A:: NEVER SMOKER. LATEX QUESTIONNAIRE LATEX ALLERGY : HAVE YOU EVER DEVELOPED ANY TYPE OF REACTION AFTER HANDLING LATEX PRODUCTS SUCH RUBBER GLOVES, CONDOMS, DIAPHRAGMS, BALLOONS, SOCKS, OR UNDERWEAR?NO LATEX ALLERGY : HAVE YOU EVER DEVELOPED ANY TYPE OF REACTION DURING OR AFTER DENTAL APPOINTMENT, VAGINAL/RECTAL EXAMINATION, SURGICAL PROCEDURE, OR ANY OTHER EXPOSURE?NO LATEX RISK : HAVE YOU EVER HAD ANY DIFFICULTY BREATHING OR HIVES AFTER EATING OR HANDLING ANY FRUITS, OR VEGETABLES; SUCH KIWI, BANANAS, STONE FRUITS, OR CHESTNUTSNO LATEX RISK : DO YOU HAVE A PREVIOUS PERSONAL HISTORY OF MORE THAN NINE SURGERIES, SPINA BIFIDA, OR REPEATED CATHERIZATIONS? NO LATEX RISK : ARE YOU FREQUENTLY EXPOSED TO LATEX PRODUCTS IN YOUR OCCUPATION?NO DATE ASKED : 07/31/2019 ALCOHOL SCREENING POINTS: 0, INTERPRETATION: NEGATIVE. RECREATIONAL DRUG USE DENIES. CAFFEINE CAFFEINE USE? 1 CUP/DAY SEXUAL HX HAD SEX IN THE LAST 12 MONTHS (VAGINAL, ORAL, OR ANAL)?NO HAVE YOU EVER HAD AN STD?NO HIV / HEP-C SCREENING HIV TEST OFFERED TO PATIENT:YES DATE OFFERED:05/28/2018 TEST ACCEPTED:NO HEP-C TEST OFFERED TO PATIENT:YES DATE OFFERED:05/28/2018 REASON:PATIENT DECLINED TEST ACCEPTED:NO REASON:PATIENT DECLINED BROCHURE PROVIDED TO PATIENTNO [place] NO [employer]FS THAT WOULD IMPACT HEALTH CARE. LANGUAGE CZECH. 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 DIET: REGULAR. EXERCISE: LIMITED DUE TO BACK INJURY. MARITAL STATUS: . OTHERS AT HOME: . NEW PATIENT PAIN DIARY TODAY'S VISIT 07/31/2019 PATIENT DESCRIBES PAIN :ACHING, HAVE IT ALL THE TIME, STABBING FROM 0-10, WHAT LEVEL IS YOUR PAIN TODAY?7 PRECIPITATING FACTORS LIFTING, BENDING ALLEVIATING FACTORS SITTING AND LAYING DOWN PAIN CLINIC PFS, CLERGY, PUBLIC HEALTH REFERRALS WAS THE PROVIDER NOTIFIED OF ANY PERTINENT INFO?YES HAS THE PATIENT BEEN EDUCATED REGARDING HIS/HER PLAN OF CARE?YES HAS THE PATIENT BEEN EDUCATED REGARDING PAIN, THE RISK FOR PAIN, THE IMPORTANCE OF EFFECTIVE PAIN MANAGEMENT, AND THE PAIN ASSESSMENT PROCESS?YES ADVANCE DIRECTIVE ADVANCE DIRECTIVE DISCUSSED WITH PATIENT:YES PT DOES NOT HAVE ANY ADVANCED DIRECTIVES AND HE DECLINES INFORMATION ON HCP AT THIS TIME. 2019-04-14 REVIEWED WITH PATIENT DS. HOSPITALIZATION/MAJOR DIAGNOSTIC PROCEDURE SURGICALY RELATED SEVERE BACK PAIN IN ED 2 SEP OCCASIONS 07/2019 REVIEW OF SYSTEMS REVIEWED BY: PROVIDER: JOSESITO LATHAM . CONSTITUTIONAL: ANY CHANGE IN YOUR MEDICAL CONDITION? NO . CHILLS NO . FEVER NO . INFECTION: DO YOU HAVE NEW INFECTIONS? NO . DO YOU HAVE HISTORY OF MRSA? NO . MUSCULOSKELETAL: ANY NEW PATTERNS OF PAIN OR NUMBNESS? YES, PAIN IS MORE INTENSE AT TIMES, PT STATES THAT HE HAS A PSUEDO HERNIA AND IS CAUSING SEVERE INTENSE PAIN . GASTROENTEROLOGY: ANY NEW CHANGE IN BOWEL CONTROL? NO . GENITOURINARY: ANY NEW CHANGE IN BLADDER CONTROL? NO . IS THERE A CHANCE YOU COULD BE ? NO . HEMATOLOGY/LYMPH: DO YOU TAKE ANY BLOOD THINNERS? (FOR EXAMPLE- COUMADIN, PLAVIX, AGGRENOX, PLATEL, PRADAXA, OR XARELTO) NO . WHEN WAS YOUR LAST DOSE? DATE: TIME: . NEUROLOGY: HAVE YOU FALLEN IN THE PAST 12 MONTHS? NO . ANY NEW EXTREMITY NUMBNESS OR WEAKNESS? NO . CARDIOLOGY: DO YOU HAVE A PACEMAKER OR DEFIBRILLATOR? NO . RESPIRATORY: HAVE YOU BEEN SICK IN THE PAST WEEK? NO . FEVER NO . FLU LIKE SYMPTOMS? NO . COUGH NO . INTEGUMENTARY: DO YOU HAVE ANY RASHES OR OPEN SORES? NO . ALLERGIC/IMMUNO: ARE YOU ALLERGIC TO IV DYE? NO . ANY NEW ALLERGIES? NO . PSYCHIATRIC: DO YOU HAVE THOUGHTS OF HURTING YOURSELF OR SOMEONE ELSE? NO . ARE YOU ABUSED, NEGLECTED, OR IN AN UNSAFE ENVIRONMENT? NO . ENDOCRINOLOGY: ARE YOU DIABETIC? NO . OTHER: DO YOU NEED ANY PRESCRIPTIONS? NO . IF YES, PLEASE LIST: ____ . ANY NEW PROBLEMS WITH YOUR MEDICATIONS? NO . WHEN DID YOU LAST EAT? ____ . WHEN DID YOU LAST DRINK? ____ . WHAT DID YOU LAST DRINK? ____ . NAME OF PERSON DRIVING YOU HOME? ____ . DO YOU HAVE ANY OTHER QUESTIONS OR CONCERNS NO . VITAL SIGNS WT 230.2 LBS, HT 76 IN, BMI 28.02 INDEX, BP 133/76 MM HG, HR 104 /MIN, RR 18 /MIN, TEMP 94.9 F, OXYGEN SAT % 94%, SAFE IN ENV? (Y/N) Y, NA INITIALS MS 1345, REVIEWED BY: RALF. EXAMINATION GENERAL EXAMINATION: GENERAL AWAKE,ALERT , PLEASANT . PSYCH AFFECT NORMAL . LUNGS: LUNG ALEJANDRO ARE CLEAR TO AUSCULTATION BILATERALLY. GOOD MOVEMENT OF AIR . HEART: S1, S2 IN A REGULAR RATE AND RHYTHM. NO SIGNIFICANT MURMURS, RUBS OR GALLOPS NOTED . ASSESSMENTS MYALGIA, OTHER SITE - M79.18 (PRIMARY) OTHER CHRONIC PAIN - G89.29 CHRONIC PRESCRIPTION OPIATE USE - Z79.891 TREATMENT MYALGIA, OTHER SITE REFILL OXYCODONE HCL TABLET, 5 MG, 1 TABLET, ORALLY, Q8H TID MDD3, 30 DAYS, 90, REFILLS 0 NOTES: CONTINUE CURRENT CHRONIC PAIN MEDICATION. URINE FOR TOXICOLOGY OBTAINED. FOLLOW-UP IS SCHEDULED IN 3 MONTHS. , ISTOP REGISTRY REVIEWED AND DEMONSTRATES COMPLLIANCE. (REF # ) BRINGS IN MEDICATIONS WHICH IS APPROPRIATE FOR WHAT WAS DISPENSED. PROCEDURE CODES FA211 ESTABILISHED PATIENT [facility] CHARGE DISPOSITION & COMMUNICATION FOLLOW UP 3 MONTHS (REASON: MED MGMNT RIGHT LBP/ABD PAIN) ELECTRONICALLY SIGNED BY NOA JEWELL ON 08/06/2019 AT 11:23 AM EDT DISCLAIMER : THIS IS A VISIT SUMMARY EXTRACTED FROM THE [employer] CHART. IT IS NOT A COPY OF THE [employer] PROGRESS NOTE. MTDD
== END ==
LOC: M PAIN 13:45
PROVIDERS: ATTEND Nurse Practitioner Family
DX: M79.18 Myalgia, other site (principal); G89.29 Other chronic pain; Z79.891 Long term (current) use of opiate analgesic

== ENCOUNTER 2019-11-12 13:37 | Emergency (ER) | payer MEDICARE ==
[~2019-11-12] VITALS: Ht 193 cm; Wt 99.5 kg
[2019-11-12] MEDS ORDERED: NS 500 ML IV ONE (14:30)
[2019-11-12] MEDS ORDERED: KETOROLAC 30 MG/ML 1ML VIAL IV ONE (14:30)
[2019-11-12 14:40] LABS: BASO % 0.4 % (0.0-1.0); EOS # 0.1 10^3/uL (0.0-0.5); EOS % 2.5 % (0.0-3.0); HEMATOCRIT 43.2 % (42.0-52.0); HEMOGLOBIN 14.1 g/dl (13.5-17.5); LYMPH # 1.4 10^3/uL (1.5-5.0); LYMPH % 27.8 % (24.0-44.0); MEAN CORPUSCULAR HEMOGLOBIN 30.1 pg (27.0-33.0); MEAN CORPUSCULAR HGB CONC 32.6 g/dl (32.0-36.5); MEAN CORPUSCULAR VOLUME 92.1 fl (80.0-96.0); MONO # 0.5 10^3/uL (0.0-0.8); MONO % 8.8 % (0.0-5.0); NEUTROPHILS # 3.1 10^3/uL (1.5-8.5); NEUTROPHILS % 60.1 % (36.0-66.0); PLATELET COUNT, AUTOMATED 248 10^3/uL (150-450); RED BLOOD COUNT 4.69 10^6/uL (4.30-6.10); WHITE BLOOD COUNT 5.1 10^3/uL (4.0-10.0)
[2019-11-12 15:02] LABS: ALT/SGPT 24 U/L (12-78); BILIRUBIN,DIRECT < 0.1 MG/DL (0.0-0.2); BILIRUBIN,TOTAL 0.5 MG/DL (0.2-1.0); BLOOD UREA NITROGEN 17 MG/DL (7-18); CALCIUM LEVEL 9.2 MG/DL (8.8-10.2); CARBON DIOXIDE LEVEL 32 MEQ/L (21-32); CHLORIDE LEVEL 101 MEQ/L (98-107); CREATININE FOR GFR 1.24 MG/DL (0.70-1.30); GLOMERULAR FILTRATION RATE > 60.0 (>49); GLUCOSE, FASTING 94 MG/DL (70-100); LIPASE 91 U/L (73-393); POTASSIUM SERUM 4.6 MEQ/L (3.5-5.1); SODIUM LEVEL 137 MEQ/L (136-145); TOTAL PROTEIN 7.8 GM/DL (6.4-8.2)
--- NOTE | 2019-11-12 15:31 | REPVR ---
PROCEDURE INFORMATION: Exam: CT Abdomen And Pelvis Without Contrast Exam date and time: 11/12/2019 2:48 PM Age: 59 years old Clinical indication: Abdominal pain; Flank; Right; Additional info: Right flank/abd pain TECHNIQUE: Imaging protocol: Computed tomography of the abdomen and pelvis without contrast. Radiation optimization: All CT scans at this facility use at least one of these dose optimization techniques: automated exposure control; mA and/or kV adjustment per patient size (includes targeted exams where dose is matched to clinical indication); or iterative reconstruction. COMPARISON: CT ABD/PEL W/IV ORAL CONTRAS 07/14/2019 5:59 PM FINDINGS: Detailed evaluation of the abdominal and pelvic viscera is somewhat limited in the absence of intravenous contrast. Lungs: Interstitial prominence and basilar airspace disease. Liver: Stable 1.7 cm hepatic dome cyst. Gallbladder and bile ducts: Status post cholecystectomy. Pancreas: No pancreatic mass or ductal dilatation. Spleen: No splenomegaly. Adrenals: Unremarkable adrenals. Kidneys and ureters: Stable 3.0 cm right renal cyst. Nonobstructing 7 mm right renal calculus, along with 1 mm nonobstructing bilateral renal calculi. Stomach and bowel: Colonic dilatation and prominent stool, in a pattern of constipation. Diverticula, without pericolonic inflammation. Appendix: No acute appendicitis. Intraperitoneal space: No significant free fluid. Vasculature: Normal caliber of the abdominal aorta. Lymph nodes: No enlarged lymph nodes. Bladder: Mild bladder wall thickening. Reproductive: Punctate prostate calcification. Bones/joints: Osteopenia. Scoliosis. Old rib fractures. Laminectomy and pedicle screw fixation in the thoracolumbar spine. Chronic compression fractures and Schmorl's nodes. Degenerative change and disc bulging. Soft tissues: Atrophy of the right rectus abdominus muscle. Fat containing left inguinal hernia. IMPRESSION: 1. Nonobstructing subcentimeter bilateral renal calculi. 2. Colonic dilatation and prominent stool in a pattern of constipation. 3. Additional findings as described above. Electronically signed by: James Rosario On 11/12/2019 15:31:14 PM
[2019-11-12] MEDS ORDERED: KETO10TAB PO (17:18)
[2019-11-12 17:25] VITALS: BP 111/76
== END 2019-11-12 17:25 | disposition home or self-care (01) ==
LOC: M ED 13:37
DX: K59.00 Constipation, unspecified (principal); M62.830 Muscle spasm of back; I10 Essential (primary) hypertension; F03.90 Unspecified dementia, unspecified severity, without behavioral disturbance, psychotic disturbance, mood disturbance, and anxiety; E78.5 Hyperlipidemia, unspecified; K21.9 Gastro-esophageal reflux disease without esophagitis; F33.9 Major depressive disorder, recurrent, unspecified; F41.9 Anxiety disorder, unspecified; Z79.899 Other long term (current) drug therapy; Z88.5 Allergy status to narcotic agent; Z88.8 Allergy status to other drugs, medicaments and biological substances
CPT/HCPCS: 74176; 80048; 80076; 81001; 83690; 85025; 87086; 96361; 96374; 99284; J1885

== ENCOUNTER → 2019-11-17 | Outpatient (CLI) | payer MEDICARE | LOC: M PAIN 13:05 | PROVIDERS: ATTEND Nurse Practitioner Family | DX: M79.18 Myalgia, other site (principal); Z79.891 Long term (current) use of opiate analgesic ==

== ENCOUNTER → 2019-11-25 | Outpatient (CLI) | payer MEDICARE | LOC: M LABSMTC 11:43 | PROVIDERS: ATTEND Anesthesiology | DX: Z20.828 Contact with and (suspected) exposure to other viral communicable diseases (principal) | CPT/HCPCS: C9803; U0003 ==

== ENCOUNTER 2019-12-05 11:51 | Emergency (ER) | payer MEDICARE ==
[~2019-12-05] VITALS: Ht 193 cm; Wt 100.5 kg
--- NOTE | 2019-12-05 14:08 | REPVR ---
PROCEDURE INFORMATION: Exam: CT Thoracic Spine Without Contrast Exam date and time: 12/05/2019 12:56 PM Age: 59 years old Clinical indication: Injury or trauma; Fall; Initial encounter; Blunt trauma (contusions or hematomas); Additional info: Fall one week ago, severe pain since TECHNIQUE: Imaging protocol: Computed tomography images of the thoracic spine without contrast. Radiation optimization: All CT scans at this facility use at least one of these dose optimization techniques: automated exposure control; mA and/or kV adjustment per patient size (includes targeted exams where dose is matched to clinical indication); or iterative reconstruction. COMPARISON: CT Spine,thoracic w/o contrast 03/28/2019 11:02 AM FINDINGS: Vertebrae: Mild exaggeration of the thoracic kyphosis. Mild midthoracic levoconvex scoliosis and lower thoracic dextroconvex scoliosis. No acute fracture seen. Mild anterior wedging of T7, [id number]-[id number] right lateral wedging of T8 and mild T11 superior endplate compression, as before. Prior posterolateral fusion and posterior pedicle screw fixation from T4 through upper lumbar spine. The hardware appears intact. The left T9 pedicle screw is located lateral to cortex, as before. No high-grade central spinal canal stenoses identified. Multilevel laminectomies again demonstrated. Discs/Spinal canal/Neural foramina: See "Vertebrae" finding. Other bones/joints: Numerous old rib fractures, as before. Soft tissues: Unremarkable. The lower lobes demonstrate dependent atelectasis. IMPRESSION: No acute thoracic spine fracture seen. Electronically signed by: Florecita Conway On 12/05/2019 14:08:02 PM
--- NOTE | 2019-12-05 14:16 | REPVR ---
PROCEDURE INFORMATION: Exam: CT Lumbar Spine Without Contrast Exam date and time: 12/05/2019 12:56 PM Age: 59 years old Clinical indication: Injury or trauma; Fall; Initial encounter; Blunt trauma (contusions or hematomas); Additional info: Fall one week ago, severe pain since TECHNIQUE: Imaging protocol: Computed tomography images of the lumbar spine without contrast. Radiation optimization: All CT scans at this facility use at least one of these dose optimization techniques: automated exposure control; mA and/or kV adjustment per patient size (includes targeted exams where dose is matched to clinical indication); or iterative reconstruction. COMPARISON: CT Spine, lumbar w/o contrast 03/28/2019 11:02 AM FINDINGS: Vertebrae: Mild dextroconvex scoliosis. Mild exaggeration of the lumbar lordosis. No acute fracture seen. Mild L4 superior endplate compression is again demonstrated. There is a Schmorl's node of the L4 superior endplate. Thoracolumbar posterolateral fusion and posterior pedicle screw fixation extends to the L2 level. Mild left eccentric disc osteophyte complexes at L2-L3 and L3-L4. No severe stenoses. Other bones/joints: A focal, sclerotic lesion is again demonstrated in the posterior iliac wing, likely a bone island. Soft tissues: Unremarkable. Nonobstructing calculus in the lower pole of the right kidney. The aorta demonstrates mild atherosclerosis. IMPRESSION: No acute lumbar spine fracture seen. Electronically signed by: Florecita Conway On 12/05/2019 14:16:51 PM
[2019-12-05] MEDS ORDERED: KETOROLAC 60MG 2ML VIAL IM ONE (14:30)
[2019-12-05 14:31] VITALS: BP 110/74
== END 2019-12-05 14:58 | disposition home or self-care (01) ==
LOC: M ED 11:51
DX: S39.012A Strain of muscle, fascia and tendon of lower back, initial encounter (principal); W01.0XXA Fall on same level from slipping, tripping and stumbling without subsequent striking against object, initial encounter; Y92.89 Other specified places as the place of occurrence of the external cause; I95.1 Orthostatic hypotension; F33.9 Major depressive disorder, recurrent, unspecified; F41.9 Anxiety disorder, unspecified; K21.9 Gastro-esophageal reflux disease without esophagitis; N40.0 Benign prostatic hyperplasia without lower urinary tract symptoms; Z79.899 Other long term (current) drug therapy; Z88.5 Allergy status to narcotic agent; Z88.8 Allergy status to other drugs, medicaments and biological substances
CPT/HCPCS: 72128; 72131; 96372; 99283; J1885

== ENCOUNTER → 2019-12-24 | Outpatient (CLI) | payer MEDICARE | LOC: M LABSMTC 12:58 | PROVIDERS: ATTEND Anesthesiology | DX: Z20.828 Contact with and (suspected) exposure to other viral communicable diseases (principal) | CPT/HCPCS: C9803; U0003 ==

== ENCOUNTER → 2019-12-29 | Outpatient (CLI) | payer MEDICARE ==
[~2019-12-29] MED LIST changes: +BUPIVACAINE HCL 0.25% 10ML VIAL As Ordered ONE; +BUPIVACAINE HCL 0.25% 30ML VIAL As Ordered ONE; +TRIAMCINOLONE ACETONIDE SUSP 40 MG/ML VIAL (J3301) As Ordered ONE
--- NOTE | 2020-01-04 16:35 | ECWPNPC ---
PATIENT NAME: BRENDA CHEN : 1960 GENDER: MALE VISIT DATE: 12/29/2019 DISCHARGE DATE: 12/29/19 140 VISIT LOCKED DATE TIME: PHYSICIAN: YUDELKA OROZCO MD RESOURCE: YUDELKA OROZCO MD REASON FOR APPOINTMENT 1. TPI RIGHT THORACIC/LUMBAR HISTORY OF PRESENT ILLNESS GENERAL: -. FALL RISK SCREENING: SCREENING :ONE FALL WITH INJURY IN THE PAST YEAR PAIN SCREENING: PATIENT HAS A COMPLAINT OF ACUTE OR CHRONIC PAIN :YES LOCATION OF PAIN:RIGHT SHOULDER, UPPER BACK, MID BACK INTENSITY OF PAIN (SCALE OF 1 TO 10):7 WHAT DOES YOUR PAIN FEEL LIKE:THROBBING DURATION:INTERMITTENT PAIN IS INCREASED BY:ACTIVITIES PAIN IS DECREASED BY:OTHERS LAYING DOWN TREATMENT/MEDICATIONS USED TO MANAGE PAIN:NSAIDS, OPIOIDS LEVEL OF RELIEF FROM PAIN TREATMENTS IN THE PAST:25% PAIN HAS INTERFERED WITH THE FOLLOWING:WALKING ABILITY, HOUSEWORK NURSING NOTE: -. PAIN CENTER INTAKE QUESTIONS: DO YOU HAVE A HISTORY OF MRSA? :NO DO YOU TAKE A BLOOD THINNERS? :NO DO YOU HAVE ANY BLEEDING DISORDERS? :NO ANY NEW NUMBNESS OR WEAKNESS IN YOUR LEGS OR ARMS? :NO ANY PACEMAKER,DEFIBRILLATOR, OR DORSAL COLUMN STIMULATOR? :NO DO YOU HAVE ANY RASHES OR OPEN SORES? :YES BLEMISH TO SHOULDERS ARE YOU ALLERGIC TO IV DYE? :NO ARE YOU DIABETIC? :NO ANY NEW PROBLEMS WITH YOUR MEDICATIONS? :NO HAVE YOU RECEIVED A VACCINE IN THE PAST 30 DAYS? :YES IF SO WHAT VACCINE AND WHEN? FLU AND PNEUMO 2 WEEKS AGO DO YOU PLAN TO RECEIVE A VACCINE IN THE NEXT 21 DAYS? :NO DO YOU TAKE ANY IMMUNOSUPPRESSIVE MEDICATIONS? :NO ANY HISTORY OF SEIZURES? :NO ANY HISTORY OF CARDIAC ISSUES OR EVENTS? :NO DO YOU HAVE SLEEP APNEA? :NO ANY RECENT HEAD INJURY? :NO DO YOU HAVE ANY NEW INFECTIONS? :NO IS THERE A CHANCE YOU COULD BE ? :NO ARE YOU BREAST FEEDING? :NO WHEN DID YOU LAST EAT? : 12/29/19 0630 WHEN DID YOU LAST DRINK? : 12/29/19 1045 WHAT DID YOU LAST DRINK? : SIPS OF WATER NAME OF PERSON DRIVING YOU HOME? : JULIETTE () DO YOU HAVE ANY OTHER QUESTIONS OR CONCERNS? : NO CURRENT MEDICATIONS TAKING BISACODYL 10 MG SUPPOSITORY 1 SUPPOSITORY NEEDED RECTAL ONCE A DAY, NOTES: 10/20/20 0700 TAKING METHOCARBAMOL 750 MG TABLET 2 TABLETS ORALLY THREE TIMES A DAY, NOTES: 12/29/19699 TAKING BISACODYL 5 MG 2 TAB ORALLY DAILY, NOTES: 12/28/192199 TAKING GABAPENTIN 600 MG TABLET 2 TABLETS ORALLY THREE TIMES A DAY, NOTES: 12/29/19699 TAKING GAS-X EXTRA STRENGTH 125 MG TABLET CHEWABLE 1 TABLET AFTER MEALS AND AT BEDTIME NEEDED ORALLY THREE TIMES A DAY, NOTES: 12/29/19699 TAKING SALONPAS PAIN RELIEF PATCH 4% PATCH TOPICALLY NEEDED, NOTES: 12/27/19 TAKING SALONPAS 4% CREAM TOPICALLY NEEDED, NOTES: NOT RECENTLY TAKING DULOXETINE HCL 60 MG CAPSULE DELAYED RELEASE PARTICLES 1 CAPSULE ORALLY ONCE A DAY, NOTES: 12/29/19699 TAKING PANTOPRAZOLE SODIUM 40 MG TABLET DELAYED RELEASE 1 TABLET ORALLY ONCE A DAY, NOTES: 12/29/19699 TAKING CLONAZEPAM 0.5 MG TABLET 1 TABLET ORALLY BID, NOTES: 12/29/19699 TAKING TAMSULOSIN HCL 0.4 MG CAPSULE EXTENDED RELEASE 2 CAP(S) ORALLY DAILY, NOTES: 12/28/192199 TAKING COLACE 100 MG CAPSULE 1 CAPSULE NEEDED ORALLY ONCE A DAY, NOTES: 12/29/19699 TAKING PROZAC 10 MG CAPSULE 1 CAPSULE ORALLY ONCE A DAY, NOTES: 12/29/19699 TAKING OXYCODONE HCL 5 MG TABLET 1 TABLET ORALLY Q8H TID MDD3, NOTES: 12/29/19699 NOT-TAKING BUTRANS 20 MCG/HR PATCH WEEKLY 1 PATCH TO SKIN TRANSDERMAL 1 PATCH Q7 DAYS=MDD NOT-TAKING BELBUCA 150 MCG FILM 1 FILM TO THE GUM BUCALLY Q12H BID MDD2 NOT-TAKING NAPROXEN 500 MG TABLET 1 TABLET ORALLY TWICE A DAY NOT-TAKING ZOLOFT 50 MG TABLET 1 TABLET ORALLY ONCE A DAY NOT-TAKING SOMA 350 MG TABLET 1 TABLET NEEDED ORALLY TWICE A DAY MDD=2 NOT-TAKING CIALIS 20 MG TABLET 1 TABLET ORALLY 1 HOUR PRIOR TO SEXUAL INTERCOURSE NOT-TAKING MIRALAX PACKET 1 PACKET MIXED WITH 8 OUNCES OF FLUID ORALLY ONCE A DAY, NOTES: LAST NIGHT NOT-TAKING LYRICA 200 MG CAPSULE 1 CAPSULE ORALLY 3 CAPS PER DAY, NOTES: TODAY 0800 NOT-TAKING SOMA 350 MG TABLET 1 TABLET ORALLY 3 X DAY, NOTES: LAST [id number] NOT-TAKING PREDNISONE 5 MG TABLET 1 TABLET ORALLY ONCE A DAY NOT-TAKING ROBAXIN-750 750 MG TABLET 1 TABLET ORALLY EVERY 8 HRS, NOTES: LAST NIGHT 7PM NOT-TAKING LIDOCAINE 4 % CREAM DIRECTED EXTERNALLY APPLY TO PAINFUL AREAS OF BACK 4 TMES PER DAY NOT-TAKING LIDOCAINE 4 % GEL DIRECTED EXTERNALLY Q 6 HOURS TO PAINFUL AREA OF BACK NOT-TAKING LIDOCAINE 5 % PATCH 1 PATCH TO INTACT SKIN REMOVE AFTER 12 HOURS EXTERNALLY ON 12 HRS, OFF 12 HRS TO PAINFUL AREA OF BACK NOT-TAKING LINACLOTIDE 290 MCG CAPSULE 1 CAPSULE ORALLY ONCE A DAY NOT-TAKING ACETAMINOPHEN 650 MG TABLET 1 TABLET NEEDED ORALLY EVERY 6 HRS NOT-TAKING LIDOCAINE 2.5 CREAM 1 APPLICATION TO AFFECTED AREA NEEDED EXTERNALLY FOUR TIMES DAILY NOT-TAKING DUODERM CGF EXTRA THIN 1 MISCELLANEOUS DIRECTED EXTERNALLY TO SORE APPLY TO WOUND, CHANGE EVERY 3-5 DAYS UNTIL HEALED NOT-TAKING TEMOVATE 0.05 % CREAM 1 APPLICATION TO AFFECTED AREA EXTERNALLY TO ITCHY SPOTS ON BODY TWICE A DAY FOR TWO WEEKS, THEN THREE TIMES WEEKLY NOT-TAKING PREVACID 15 MG CAPSULE DELAYED RELEASE 1 CAPSULES BEFORE A MEAL ORALLY ONCE A DAY NOT-TAKING OSTEO BI-FLEX REGULAR STRENGTH 250-200 MG TABLET 1 TAB ORALLY TWICE DAILY NOT-TAKING LOVASTATIN 40 MG TABLET 1 TABLET WITH A MEAL ORALLY ONCE A DAY MEDICATION LIST REVIEWED AND RECONCILED WITH THE PATIENT PAST MEDICAL HISTORY DEPRESSION HYPERLIPDEMIA GERD IBS ARTHRITIS ANXIETY 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 SCOLIOSIS KIDNEY STONES PROSTATITS COMPRESSION FX THORACIC VERTEBRA INTERCOSTAL NEURITIS NEUROGENIC BOWEL SPASTICITY TBI PSEUDO HERNIA ALLERGIES CODEINE SULFATE: HIVES - ALLERGY HEPARIN: PROTIEN A IN BLOOD CLOGS DIALYSIS MACHINE - CONTRAINDICATION TIZANIDINE HCL: NAUSEA/VOMITING - ALLERGY SURGICAL HISTORY KIDNEY STONE 2003 T3-LUMBAR SURGERY MATT IN PLACE 01/03/14 CHOLECYSTECTOMY 11/2014 THORACIC DECOMPRESSION AND REMOVAL OF BONE PIECES 05/02/15 SCREENING COLONOSCOPY 2018 FAMILY HISTORY FATHER: ALIVE, ENLARGED PROSTATE, DIAGNOSED WITH HYPERTENSION MOTHER: ALIVE, DEMENTIA, HYPERTENSION SIBLINGS: ALIVE, DIABETES 1 SISTER(S) . 1 SON(S) , 1 DAUGHTER(S) - HEALTHY. NO KNOWN FAMILY HISTORY OF ANY UROLOGICALLY RELATED DISEASES\/CANCERS. SON-ANXIETY. SOCIAL HISTORY GENERAL: TOBACCO USE ARE YOU A:: NEVER SMOKER. LATEX QUESTIONNAIRE LATEX ALLERGY : HAVE YOU EVER DEVELOPED ANY TYPE OF REACTION AFTER HANDLING LATEX PRODUCTS SUCH RUBBER GLOVES, CONDOMS, DIAPHRAGMS, BALLOONS, SOCKS, OR UNDERWEAR?NO LATEX ALLERGY : HAVE YOU EVER DEVELOPED ANY TYPE OF REACTION DURING OR AFTER DENTAL APPOINTMENT, VAGINAL/RECTAL EXAMINATION, SURGICAL PROCEDURE, OR ANY OTHER EXPOSURE?NO DATE ASKED : 07/31/2019 LATEX RISK : HAVE YOU EVER HAD ANY DIFFICULTY BREATHING OR HIVES AFTER EATING OR HANDLING ANY FRUITS, OR VEGETABLES; SUCH KIWI, BANANAS, STONE FRUITS, OR CHESTNUTSNO LATEX RISK : DO YOU HAVE A PREVIOUS PERSONAL HISTORY OF MORE THAN NINE SURGERIES, SPINA BIFIDA, OR REPEATED CATHERIZATIONS? NO LATEX RISK : ARE YOU FREQUENTLY EXPOSED TO LATEX PRODUCTS IN YOUR OCCUPATION?NO ALCOHOL SCREENING DID YOU HAVE A DRINK CONTAINING ALCOHOL IN THE PAST YEAR?NO POINTS0 INTERPRETATIONNEGATIVE RECREATIONAL DRUG USE DENIES. CAFFEINE CAFFEINE USE? 1 CUP/DAY SEXUAL HX HAD SEX IN THE LAST 12 MONTHS (VAGINAL, ORAL, OR ANAL)?NO HAVE YOU EVER HAD AN STD?NO HIV / HEP-C SCREENING HIV TEST OFFERED TO PATIENT:YES DATE OFFERED:05/28/2018 TEST ACCEPTED:NO HEP-C TEST OFFERED TO PATIENT:YES DATE OFFERED:05/28/2018 REASON:PATIENT DECLINED TEST ACCEPTED:NO REASON:PATIENT DECLINED BROCHURE PROVIDED TO PATIENTNO SCIENTOLOGIST NO VOODOO BELIEFS THAT WOULD IMPACT HEALTH CARE. LANGUAGE BELARUSIAN. EDUCATION LEVEL OF EDUCATION:COLLEGE LEARNING BARRIERS / SPECIAL NEEDS BARRIERS TO LEARNING?NO HEARING IMPAIRED?NO VISION IMPAIRED?YES COGNITIVELY IMPAIRED?NO :CORRECTIVE LENSES READINESS TO LEARN?YES LEARNING PREFERENCES?YES :BOOKLETS, HANDOUTS LEARNING CAPABILITIES PRESENT?YES EMOTIONAL BARRIERS?NO SPECIAL DEVICES?YES :CANE FIRST AID DIRECTOR NEEDED?NO DOMESTIC VIOLENCE DO YOU FEEL SAFE IN YOUR ENVIRONMENT?YES OCCUPATION: [employer], RETIRED/DISABLED. DIET: REGULAR. EXERCISE: LIMITED DUE TO BACK INJURY. MARITAL STATUS: . OTHERS AT HOME: . PAIN CLINIC PFS, CLERGY, PUBLIC HEALTH REFERRALS WAS THE PROVIDER NOTIFIED OF ANY PERTINENT INFO?YES HAS THE PATIENT BEEN EDUCATED REGARDING HIS/HER PLAN OF CARE?YES HAS THE PATIENT BEEN EDUCATED REGARDING PAIN, THE RISK FOR PAIN, THE IMPORTANCE OF EFFECTIVE PAIN MANAGEMENT, AND THE PAIN ASSESSMENT PROCESS?YES ADVANCE DIRECTIVE ADVANCE DIRECTIVE DISCUSSED WITH PATIENT:YES PT DOES NOT HAVE ANY ADVANCED DIRECTIVES AND HE DECLINES INFORMATION ON HCP AT THIS TIME. 2019-04-14 REVIEWED WITH PATIENT DS. HOSPITALIZATION/MAJOR DIAGNOSTIC PROCEDURE SURGICALY RELATED SEVERE BACK PAIN IN ED 2 SEPERATE OCCASIONS 07/2019 VITAL SIGNS WT 226.0 LBS, HT 76 IN, BMI 27.51 INDEX, BP 121/75 MM HG, HR 104 /MIN, RR 18 /MIN, TEMP 96.5 F, OXYGEN SAT % 96%, SAFE IN ENV? (Y/N) YES, NA INITIALS AW 1302, REVIEWED BY: MT. EXAMINATION GENERAL EXAMINATION: THE PATIENT IS ALERT, ORIENTED TIMES THREE AND COOPERATIVE. HEART SHOWS REGULAR RHYTHM, NO MURMURS AND NO GALLOPS. LUNGS ARE CLEAR TO AUSCULTATION. ASSESSMENTS MYALGIA, OTHER SITE - M79.18 (PRIMARY), RISK: (NULL) TREATMENT MYALGIA, OTHER SITE CLINICAL NOTES: 12/28/19 VITALY MULLER, SERGER. PROCEDURES PAIN NURSING RECORD PRE-PROCEDURE IV SITE N/A PROCEDURE IN ROOM 1300 UPON ARRIVAL TO CLINIC, PHYSICIAN IN ROOM 1344, START 1348, FINISH 1352, PHYSICIAN OUT OF ROOM 1355, OUT OF ROOM 1406, STEROID KENALOG, O2 RA, ECG N/A, PATIENT SHIELDED NO, SAFETY STRAP NO, PREP ALCOHOL DR. CASTANEDA, IV INFUSED N/A, DRESSING TEGADERM PRACHI, SERGER LOC: HALI MARY 12/29/2019 1:18:49 PM > 1. ALERT, ORIENTED RESP: HALI MARY 12/29/2019 1:18:54 PM > 1. REGULAR, NO DYSPNEA COLOR: HALI MARY 12/29/2019 1:19:00 PM > 1. PINK SKIN: HALI MARY 12/29/2019 1:19:13 PM > 1. WARM, DRY POSITION: HALI MARY 12/29/2019 1:19:23 PM > 4. OTHER, SITTING VITALS: HALI MARY 12/29/2019 2:00:12 PM > POST PROCEDURE 108/75, HR 100, 96% RA, 18. DISCHARGE: POST PAIN 08/18, DRESSING SITE DRY AND INTACT, IV N/A, GAIT STEADY CANE AT BASELINE, TEACHING COMPLETED, PATIENT ACKNOWLEDGES UNDERSTANDING YES, PATIENT DISCHARGED AT 1406 PN TRIGGER POINT INJECTION WITH STEROIDS PRE PROCEDURE DIAGNOSIS 1. MYALGIA 2. PAIN AT RIGHT THORACIC AREA AND RIGHT LOWER BACK AREA POST PROCEDURE DIAGNOSIS 1. MYALGIA 2. PAIN AT RIGHT THORACIC AREA AND RIGHT LOWER BACK AREA PROCEDURE TRIGGER POINT INJECTION AT RIGHT THORACIC AREA AND RIGHT LOWER BACK AREA SURGEON DR. YUDELKA OROZCO HOSPICE AIDE NONE ANESTHESIA LOCAL PRE PROCEDURE NOTE THE PATIENT HAS A HISTORY OF CHRONIC PAIN AT THE RIGHT THORACIC AREA AND RIGHT LOWER BACK AREA. I EVALUATED THE PATIENT AND REVIEWED THE CHART. THERE IS EVIDENCE OF BANDS OF TISSUE WITH RESTRICTION OF MOVEMENT AND PRESENCE OF TRIGGER POINT AT THE RIGHT THORACIC AREA AND RIGHT LOWER BACK. I DISCUSSED THAT THE USE OF STEROIDS MAY CONTRIBUTE TO IMMUNOSUPPRESSION OF THE PATIENT'S BODY AGAINST INFECTIONS SUCH COVID-19. THE PATIENT IS AWARE OF THE POTENTIAL COMPLICATIONS ASSOCIATED WITH THIS VIRUS, INCLUDING, BUT NOT LIMITED TO, . I WENT OVER THE RISKS, ALTERNATIVES, AND BENEFITS ASSOCIATED WITH THIS PROCEDURE. THE PATIENT WOULD LIKE TO PROCEED AND GIVE CONSENT TO PERFORMED THE PROCEDURE. THE PATIENT DENIES UNEXPLAINABLE WEIGHT LOSS, FEVER, CHILLS, OR NEW CHANGES IN URINARY OR BOWEL CONTROL. THE PATENT IS COVID-19 NEGATIVE DESCRIPTION OF PROCEDURE THE PATIENT WAS BROUGHT TO THE PROCEDURE ROOM AND PLACED IN THE SITTING POSITION. THE AREA WAS CLEANED WITH ALCOHOL. THE PROCEDURE WAS DONE USING ASEPTIC STERILE TECHNIQUE. A TIMEOUT WAS PERFORMED WHERE LATERALITY AND THE SITE OF THE PROCEDURE WERE CHECKED AND CONFIRMED WITH EVERYONE IN THE ROOM. USING A 25-GAUGE NEEDLE, TRIGGER POINTS WERE INJECTED AT THE RIGHT THORACIC AREA AND RIGHT LOWER BACK AREA WITH A TOTAL OF 40 ML OF BUPIVACAINE 0.25% AND KENALOG 40 MG. THE MEDICATIONS WERE VERIFIED WITH THE NURSE. THERE WAS NO EVIDENCE OF BLOOD OR PARESTHESIA DURING THE PROCEDURE. THE PATIENT WAS SENT TO THE RECOVERY ROOM. THE PATIENT WAS MOVING THE EXTREMITIES AND DOING WELL. THERE WERE NO COMPLICATIONS DURING THE PROCEDURE. ESTIMATED BLOOD LOSS WAS LESS THAN 5 ML POST PROCEDURE NOTE THE PROCEDURE DONE WAS DISCUSSED WITH THE PATIENT. THE PATIENT WILL BE SEEN IN A FOLLOW UP IN THE NEXT FEW WEEKS. I AM LOOKING FOR LONG LASTING PAIN RELIEF FOR THE PATIENT WITH THIS INTERVENTION. INSTRUCTIONS WERE GIVEN, QUESTIONS WERE ANSWERED, AND THE PATIENT EXPRESSED UNDERSTANDING AND AGREES WITH THE PLAN. I, LIANNA NAIR, DOCUMENTED THE ABOVE INFORMATION ACTING A SCRIBE FOR DR. OROZCO. I HAVE REVIEWED THE ABOVE DOCUMENT, WRITTEN BY LIANNA NAIR, [employer] ADVOCATE CLERK/SPECIALIST, AND I VERIFY THAT IT IS ACCURATE PREVENTIVE MEDICINE PAIN CLINIC TEACHING: PROCEDURE TEACHING PATIENT EDUCATED ON THE POTENTIAL USE OF STEROID MAY REDUCE THE EFFECTIVENESS OF THE FLU AND PNEUMONIA VACCINATIONS AND THE USE OF STEROID MAY ALSO WEAKEN THE IMMUNE SYSTEM. . PROCEDURE CODES 67495 INJ TRIGGER POINT 1/2 MUSCL DISPOSITION & COMMUNICATION FOLLOW UP FOLLOW UP WITH PEER COUNSELOR (REASON: POST TPI RIGHT THORACIC AND LUMBAR) ELECTRONICALLY SIGNED BY YUDELKA OROZCO MD, MD ON 01/04/2020 AT 01:19 PM EDT DISCLAIMER : THIS IS A VISIT SUMMARY EXTRACTED FROM THE [employer] CHART. IT IS NOT A COPY OF THE [employer] PROGRESS NOTE. CADEND
== END ==
LOC: M PAIN 13:00
PROVIDERS: ATTEND Anesthesiology
DX: M79.18 Myalgia, other site (principal); F32.9 Major depressive disorder, single episode, unspecified; E78.5 Hyperlipidemia, unspecified; K21.9 Gastro-esophageal reflux disease without esophagitis; F41.9 Anxiety disorder, unspecified; Z79.891 Long term (current) use of opiate analgesic; Z79.899 Other long term (current) drug therapy; Z88.5 Allergy status to narcotic agent; Z88.8 Allergy status to other drugs, medicaments and biological substances
CPT/HCPCS: 20552; J3301

== ENCOUNTER → 2020-01-11 | Outpatient (CLI) | payer SELFPAY ==
[~2020-01-11] MED LIST changes: -BUPIVACAINE HCL 0.25% 10ML VIAL As Ordered ONE; -BUPIVACAINE HCL 0.25% 30ML VIAL As Ordered ONE; -TRIAMCINOLONE ACETONIDE SUSP 40 MG/ML VIAL (J3301) As Ordered ONE
== END ==
LOC: M LABSMTC 12:55
PROVIDERS: ATTEND Pediatrics
DX: Z20.828 Contact with and (suspected) exposure to other viral communicable diseases (principal)

== ENCOUNTER → 2020-01-18 | Outpatient (CLI) | payer MEDICARE ==
--- NOTE | 2020-01-20 02:16 | ECWPNPC ---
PATIENT NAME: BRENDA CHEN : 1960 GENDER: MALE VISIT DATE: 01/18/2020 DISCHARGE DATE: 01/18/20 1428 VISIT LOCKED DATE TIME: PHYSICIAN: JOSESITO DESIR RESOURCE: JOSESITO DESIR REASON FOR APPOINTMENT 1. POST TPI RIGHT THORACIC AND LUMBAR HISTORY OF PRESENT ILLNESS GENERAL: HERE FOR POST PROCEDURE FOLLOW-UP AND MEDICATION MANAGEMENT FOR PERSISTENT RIGHT LOW BACK PAIN. HAD TRIGGER POINT INJECTIONS RIGHT THORACIC AND RIGHT LOW BACK ON 12/29/2019. PATIENT EXPERIENCED A SEVERE FLAREUP IN HIS PAIN FOR 5 DAYS POSTPROCEDURE. NOT SURE IF THEY WERE RELATED BUT TODAY HE IS DOING QUITE WELL. HIS BLOOD PRESSURE IS LOW. STATES HE FEELS FINE. HISTORY OF FALLING A FEW TIMES OVER THE PAST MONTH. PRIMARY CARE EVALUATED AND OKAYED HIM TO HAVE TRIGGER POINT INJECTIONS. I'VE ADVISED HIM TO MONITOR HIS BLOOD PRESSURE AT HOME DAILY. ADVISED TO REPORT TO PRIMARY CARE WITH READINGS . HE WAS ADVISED TO CHANGE POSITIONS SLOWLY FROM SITTING TO STANDING. -. FALL RISK SCREENING: SCREENING :TWO OR MORE FALLS WITHOUT INJURY IN THE PAST YEAR PAIN SCREENING: PATIENT HAS A COMPLAINT OF ACUTE OR CHRONIC PAIN :YES LOCATION OF PAIN:RIGHT SHOULDER, UPPER BACK INTENSITY OF PAIN (SCALE OF 1 TO 10):6 WHAT DOES YOUR PAIN FEEL LIKE:ACHING DURATION:CONTINOUS, CONSTANT PAIN IS INCREASED BY:ACTIVITIES PAIN IS DECREASED BY:OTHERS LAYING FLAT, SITTING X 1 HOUR LEVEL OF RELIEF FROM PAIN TREATMENTS IN THE PAST:25% PAIN HAS INTERFERED WITH THE FOLLOWING: NO NURSING NOTE: -. PAIN CENTER INTAKE QUESTIONS: DO YOU HAVE A HISTORY OF MRSA? :NO DO YOU TAKE A BLOOD THINNERS? :NO DO YOU HAVE ANY BLEEDING DISORDERS? :NO ANY NEW NUMBNESS OR WEAKNESS IN YOUR LEGS OR ARMS? :NO ANY PACEMAKER,DEFIBRILLATOR, OR DORSAL COLUMN STIMULATOR? :NO DO YOU HAVE ANY RASHES OR OPEN SORES? :NO ARE YOU ALLERGIC TO IV DYE? :NO ARE YOU DIABETIC? :NO ANY NEW PROBLEMS WITH YOUR MEDICATIONS? :NO HAVE YOU RECEIVED A VACCINE IN THE PAST 30 DAYS? :YES IF SO WHAT VACCINE AND WHEN? FLU AND PNEUMO VACCINES December DO YOU PLAN TO RECEIVE A VACCINE IN THE NEXT 21 DAYS? :NO DO YOU NEED ANY PRESCRIPTION? :NO DO YOU TAKE ANY IMMUNOSUPPRESSIVE MEDICATIONS? :NO IS THERE A CHANCE YOU COULD BE ? :NO ARE YOU BREAST FEEDING? :NO CURRENT MEDICATIONS TAKING BISACODYL 10 MG SUPPOSITORY 1 SUPPOSITORY NEEDED RECTAL ONCE A DAY TAKING METHOCARBAMOL 750 MG TABLET 2 TABLETS ORALLY THREE TIMES A DAY TAKING BISACODYL 5 MG 2 TAB ORALLY DAILY TAKING GABAPENTIN 600 MG TABLET 2 TABLETS ORALLY THREE TIMES A DAY TAKING GAS-X EXTRA STRENGTH 125 MG TABLET CHEWABLE 1 TABLET AFTER MEALS AND AT BEDTIME NEEDED ORALLY THREE TIMES A DAY TAKING SALONPAS PAIN RELIEF PATCH 4% PATCH TOPICALLY NEEDED TAKING SALONPAS 4% CREAM TOPICALLY NEEDED TAKING DULOXETINE HCL 60 MG CAPSULE DELAYED RELEASE PARTICLES 1 CAPSULE ORALLY ONCE A DAY TAKING PANTOPRAZOLE SODIUM 40 MG TABLET DELAYED RELEASE 1 TABLET ORALLY ONCE A DAY TAKING CLONAZEPAM 0.5 MG TABLET 1 TABLET ORALLY BID TAKING TAMSULOSIN HCL 0.4 MG CAPSULE EXTENDED RELEASE 2 CAP(S) ORALLY DAILY TAKING COLACE 100 MG CAPSULE 1 CAPSULE NEEDED ORALLY ONCE A DAY TAKING PROZAC 10 MG CAPSULE 1 CAPSULE ORALLY ONCE A DAY TAKING OXYCODONE HCL 5 MG TABLET 1 TABLET ORALLY Q8H TID MDD3 NOT-TAKING KETOROLAC TROMETHAMINE 10 MG TABLET 1 TABLET WITH FOOD OR MILK NEEDED ORALLY EVERY 6 HRS NOT-TAKING BUTRANS 20 MCG/HR PATCH WEEKLY 1 PATCH TO SKIN TRANSDERMAL 1 PATCH Q7 DAYS=MDD NOT-TAKING BELBUCA 150 MCG FILM 1 FILM TO THE GUM BUCALLY Q12H BID MDD2 NOT-TAKING NAPROXEN 500 MG TABLET 1 TABLET ORALLY TWICE A DAY NOT-TAKING ZOLOFT 50 MG TABLET 1 TABLET ORALLY ONCE A DAY NOT-TAKING SOMA 350 MG TABLET 1 TABLET NEEDED ORALLY TWICE A DAY MDD=2 NOT-TAKING CIALIS 20 MG TABLET 1 TABLET ORALLY 1 HOUR PRIOR TO SEXUAL INTERCOURSE NOT-TAKING MIRALAX PACKET 1 PACKET MIXED WITH 8 OUNCES OF FLUID ORALLY ONCE A DAY, NOTES: LAST NIGHT NOT-TAKING LYRICA 200 MG CAPSULE 1 CAPSULE ORALLY 3 CAPS PER DAY, NOTES: TODAY 0800 NOT-TAKING SOMA 350 MG TABLET 1 TABLET ORALLY 3 X DAY, NOTES: LAST [id number] NOT-TAKING PREDNISONE 5 MG TABLET 1 TABLET ORALLY ONCE A DAY NOT-TAKING ROBAXIN-750 750 MG TABLET 1 TABLET ORALLY EVERY 8 HRS, NOTES: LAST NIGHT 7PM NOT-TAKING LIDOCAINE 4 % CREAM DIRECTED EXTERNALLY APPLY TO PAINFUL AREAS OF BACK 4 TMES PER DAY NOT-TAKING LIDOCAINE 4 % GEL DIRECTED EXTERNALLY Q 6 HOURS TO PAINFUL AREA OF BACK NOT-TAKING LIDOCAINE 5 % PATCH 1 PATCH TO INTACT SKIN REMOVE AFTER 12 HOURS EXTERNALLY ON 12 HRS, OFF 12 HRS TO PAINFUL AREA OF BACK NOT-TAKING LINACLOTIDE 290 MCG CAPSULE 1 CAPSULE ORALLY ONCE A DAY NOT-TAKING ACETAMINOPHEN 650 MG TABLET 1 TABLET NEEDED ORALLY EVERY 6 HRS NOT-TAKING LIDOCAINE 2.5 CREAM 1 APPLICATION TO AFFECTED AREA NEEDED EXTERNALLY FOUR TIMES DAILY NOT-TAKING DUODERM CGF EXTRA THIN 1 MISCELLANEOUS DIRECTED EXTERNALLY TO SORE APPLY TO WOUND, CHANGE EVERY 3-5 DAYS UNTIL HEALED NOT-TAKING TEMOVATE 0.05 % CREAM 1 APPLICATION TO AFFECTED AREA EXTERNALLY TO ITCHY SPOTS ON BODY TWICE A DAY FOR TWO WEEKS, THEN THREE TIMES WEEKLY NOT-TAKING PREVACID 15 MG CAPSULE DELAYED RELEASE 1 CAPSULES BEFORE A MEAL ORALLY ONCE A DAY NOT-TAKING OSTEO BI-FLEX REGULAR STRENGTH 250-200 MG TABLET 1 TAB ORALLY TWICE DAILY NOT-TAKING LOVASTATIN 40 MG TABLET 1 TABLET WITH A MEAL ORALLY ONCE A DAY MEDICATION LIST REVIEWED AND RECONCILED WITH THE PATIENT PAST MEDICAL HISTORY DEPRESSION HYPERLIPDEMIA GERD IBS ARTHRITIS ANXIETY 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 SCOLIOSIS KIDNEY STONES PROSTATITS COMPRESSION FX THORACIC VERTEBRA INTERCOSTAL NEURITIS NEUROGENIC BOWEL SPASTICITY TBI PSEUDO HERNIA ALLERGIES CODEINE SULFATE: HIVES - ALLERGY HEPARIN: PROTIEN A IN BLOOD CLOGS DIALYSIS MACHINE - CONTRAINDICATION TIZANIDINE HCL: NAUSEA/VOMITING - ALLERGY SURGICAL HISTORY KIDNEY STONE 2004 T3-LUMBAR SURGERY MATT IN PLACE 01/03/14 CHOLECYSTECTOMY 11/2014 THORACIC DECOMPRESSION AND REMOVAL OF BONE PIECES 05/02/15 SCREENING COLONOSCOPY 2018 FAMILY HISTORY FATHER: ALIVE, ENLARGED PROSTATE, DIAGNOSED WITH HYPERTENSION MOTHER: ALIVE, DEMENTIA, HYPERTENSION SIBLINGS: ALIVE, DIABETES 1 SISTER(S) . 1 SON(S) , 1 DAUGHTER(S) - HEALTHY. NO KNOWN FAMILY HISTORY OF ANY UROLOGICALLY RELATED DISEASES\/CANCERS. SON-ANXIETY. SOCIAL HISTORY GENERAL: TOBACCO USE ARE YOU A:: NEVER SMOKER. LATEX QUESTIONNAIRE LATEX ALLERGY : HAVE YOU EVER DEVELOPED ANY TYPE OF REACTION AFTER HANDLING LATEX PRODUCTS SUCH RUBBER GLOVES, CONDOMS, DIAPHRAGMS, BALLOONS, SOCKS, OR UNDERWEAR?NO LATEX ALLERGY : HAVE YOU EVER DEVELOPED ANY TYPE OF REACTION DURING OR AFTER DENTAL APPOINTMENT, VAGINAL/RECTAL EXAMINATION, SURGICAL PROCEDURE, OR ANY OTHER EXPOSURE?NO LATEX RISK : HAVE YOU EVER HAD ANY DIFFICULTY BREATHING OR HIVES AFTER EATING OR HANDLING ANY FRUITS, OR VEGETABLES; SUCH KIWI, BANANAS, STONE FRUITS, OR CHESTNUTSNO LATEX RISK : DO YOU HAVE A PREVIOUS PERSONAL HISTORY OF MORE THAN NINE SURGERIES, SPINA BIFIDA, OR REPEATED CATHERIZATIONS? NO LATEX RISK : ARE YOU FREQUENTLY EXPOSED TO LATEX PRODUCTS IN YOUR OCCUPATION?NO DATE ASKED : 07/31/2019 ALCOHOL SCREENING DID YOU HAVE A DRINK CONTAINING ALCOHOL IN THE PAST YEAR?NO POINTS0 INTERPRETATIONNEGATIVE RECREATIONAL DRUG USE DENIES. CAFFEINE CAFFEINE USE? 1 CUP/DAY SEXUAL HX HAD SEX IN THE LAST 12 MONTHS (VAGINAL, ORAL, OR ANAL)?NO HAVE YOU EVER HAD AN STD?NO HIV / HEP-C SCREENING HIV TEST OFFERED TO PATIENT:YES DATE OFFERED:05/28/2018 TEST ACCEPTED:NO HEP-C TEST OFFERED TO PATIENT:YES DATE OFFERED:05/28/2018 REASON:PATIENT DECLINED TEST ACCEPTED:NO REASON:PATIENT DECLINED BROCHURE PROVIDED TO PATIENTNO BUDDHIST NO ORTHODOX BELIEFS THAT WOULD IMPACT HEALTH CARE. LANGUAGE PASHTO. 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 DIET: REGULAR. EXERCISE: LIMITED DUE TO BACK INJURY. MARITAL STATUS: . OTHERS AT HOME: . PAIN CLINIC PFS, CLERGY, PUBLIC HEALTH REFERRALS WAS THE PROVIDER NOTIFIED OF ANY PERTINENT INFO?YES HAS THE PATIENT BEEN EDUCATED REGARDING HIS/HER PLAN OF CARE?YES HAS THE PATIENT BEEN EDUCATED REGARDING PAIN, THE RISK FOR PAIN, THE IMPORTANCE OF EFFECTIVE PAIN MANAGEMENT, AND THE PAIN ASSESSMENT PROCESS?YES ADVANCE DIRECTIVE ADVANCE DIRECTIVE DISCUSSED WITH PATIENT:YES PT DOES NOT HAVE ANY ADVANCED DIRECTIVES AND HE DECLINES INFORMATION ON HCP AT THIS TIME. 2019-04-14 REVIEWED WITH PATIENT DS. HOSPITALIZATION/MAJOR DIAGNOSTIC PROCEDURE SURGICALY RELATED SEVERE BACK PAIN IN ED 2 SEPERATE OCCASIONS 07/2019 REVIEW OF SYSTEMS CONSTITUTIONAL: ANY RECENT FEVER NO . CHILLS NO . WEIGHT CHANGE OF UNKNOWN REASONS NO . GASTROENTEROLOGY: NEW UNEXPLAINABLE CHANGES IN BOWEL CONTROL NO . CONSTIPATION NO . GENITOURINARY: ANY NEW CHANGE IN BLADDER CONTROL? NO . NEUROLOGY: NEW ONSET DIZZINESS OR NEUROLOGICAL CHANGES NOT MENTIONED NO . NEW NUMBNESS OR PAIN PATTERNS NOT MENTIONED AND PERTINENT TO TODAY'S VISIT NO . CARDIOLOGY: NEW CHEST PRESSURE NO . NEW CHEST PAIN NO . RESPIRATORY: UNEXPLAINABLE COUGH NO . NEW SHORTNESS OF BREATH NO . VITAL SIGNS WT 225 LBS, HT 76 IN, BMI 27.38 INDEX, BP 88/54 MM HG, HR 108 /MIN, RR 18 /MIN, TEMP 97.9 F, OXYGEN SAT % 96%, NA INITIALS SC 13:54, REVIEWED BY: EM. EXAMINATION GENERAL EXAMINATION: GENERAL AWAKE,ALERT , PLEASANT . PSYCH AFFECT NORMAL . LUNGS: LUNG ALEJANDRO ARE CLEAR TO AUSCULTATION BILATERALLY. GOOD MOVEMENT OF AIR . HEART: S1, S2 IN A REGULAR RATE AND RHYTHM. NO SIGNIFICANT MURMURS, RUBS OR GALLOPS NOTED . ASSESSMENTS OTHER CHRONIC PAIN - G89.29 (PRIMARY) MYALGIA, OTHER SITE - M79.18 CHRONIC PRESCRIPTION OPIATE USE - Z79.891 TREATMENT OTHER CHRONIC PAIN CONTINUE GABAPENTIN TABLET, 600 MG, 2 TABLETS, ORALLY, THREE TIMES A DAY CONTINUE OXYCODONE HCL TABLET, 5 MG, 1 TABLET, ORALLY, Q8H TID MDD3 NOTES: ISTOP REGISTRY REVIEWED AND DEMONSTRATES COMPLLIANCE. BRINGS IN MEDICATIONS WHICH IS APPROPRIATE FOR WHAT WAS DISPENSED. RECENT URINE TOXICOLOGY REVIEWED. NO UNAUTHORIZED MEDICATIONS. NO ILLICIT SUBSTANCES AND PRESCRIBED MEDICATIONS WERE PRESENT. URINE TOXICOLOGY AT FOLLOW-UP , RISKS OF NARCOTIC/OPIOD MEDICATIONS INCLUDES BUT IS NOT LIMITED TO RISK OF DEPENDANCE/DEVELOPMENT OF ADDICTION, MOOD DISTURBANCE AND DEPRESSION, OSTEOPOROSIS, HORMONAL AND LABIDAL CHANGES, RESPIRATORY DEPRESSION AND . PATIENT IS ADVISED NOT TO DRIVE OR DRINK ALCOHOL WHILE ON THESE MEDICATIONS. PROCEDURE CODES [id number] ESTABILISHED PATIENT [facility] CHARGE DISPOSITION & COMMUNICATION FOLLOW UP 2 MONTHS (REASON: MEDICATION MANAGEMENT/URINE TOXICOLOGY) ELECTRONICALLY SIGNED BY NOA JEWELL ON 01/19/2020 AT 01:51 PM EST DISCLAIMER : THIS IS A VISIT SUMMARY EXTRACTED FROM THE [employer] CHART. IT IS NOT A COPY OF THE [employer] PROGRESS NOTE. MTDD
== END ==
LOC: M PAIN 13:45
PROVIDERS: ATTEND Nurse Practitioner Family
DX: G89.29 Other chronic pain (principal); M79.18 Myalgia, other site; F32.9 Major depressive disorder, single episode, unspecified; E78.5 Hyperlipidemia, unspecified; K21.9 Gastro-esophageal reflux disease without esophagitis; K58.9 Irritable bowel syndrome, unspecified; F41.9 Anxiety disorder, unspecified; Z79.891 Long term (current) use of opiate analgesic; Z79.899 Other long term (current) drug therapy; Z88.5 Allergy status to narcotic agent; Z88.8 Allergy status to other drugs, medicaments and biological substances

== ENCOUNTER → 2020-03-18 | Outpatient (CLI) | payer MEDICARE ==
--- NOTE | 2020-03-22 06:59 | ECWPNPC ---
PATIENT NAME: BRENDA CHEN : 1960 GENDER: MALE VISIT DATE: 03/18/2020 DISCHARGE DATE: 03/18/20 1434 VISIT LOCKED DATE TIME: PHYSICIAN: JOSESITO DESIR PHYSICIAN PAGER NO: INACTIVE RESOURCE: JOSESITO DESIR REASON FOR APPOINTMENT 1. MED MANAGEMENT HISTORY OF PRESENT ILLNESS GENERAL: HERE FOR FOLLOW-UP OF PERSISTENT RIGHT THORACIC AND LOW BACK PAIN. REPORTS MUSCLE SPASM TYPE PAIN THAT IS CONSTANT IN THE RIGHT THORACIC AND LOW BACK AREA. HAS RESPONDED TO TRIGGER POINT INJECTIONS IN THE PAST ALTHOUGH INITIALLY THEY ARE PAINFUL FOR 5 DAYS. REVIEWED MEDICATION AND TREATMENT PLAN. -. PAIN SCREENING: PATIENT HAS A COMPLAINT OF ACUTE OR CHRONIC PAIN :YES LOCATION OF PAIN:MID BACK RIGHT SIDE INTENSITY OF PAIN (SCALE OF 1 TO 10):7 WHAT DOES YOUR PAIN FEEL LIKE:ACHING, BURNING, CONTINOUS, THROBBING DURATION:CONTINOUS, CONSTANT, ALL DAY PAIN IS INCREASED BY:ACTIVITIES, PROLONGED STANDING, OTHERS SITTING PAIN IS DECREASED BY:OTHERS LAYING FLAT ON THE BACK, HEAT PACK TREATMENT/MEDICATIONS USED TO MANAGE PAIN:OPIOIDS LEVEL OF RELIEF FROM PAIN TREATMENTS IN THE PAST:50% NURSING NOTE: -. PAIN CENTER INTAKE QUESTIONS: DO YOU HAVE A HISTORY OF MRSA? :NO DO YOU TAKE A BLOOD THINNERS? :NO DO YOU HAVE ANY BLEEDING DISORDERS? :NO ANY NEW NUMBNESS OR WEAKNESS IN YOUR LEGS OR ARMS? :NO ANY PACEMAKER,DEFIBRILLATOR, OR DORSAL COLUMN STIMULATOR? :NO DO YOU HAVE ANY RASHES OR OPEN SORES? :NO ARE YOU ALLERGIC TO IV DYE? :NO ARE YOU DIABETIC? :NO ANY NEW PROBLEMS WITH YOUR MEDICATIONS? :NO HAVE YOU RECEIVED A VACCINE IN THE PAST 30 DAYS? :NO DO YOU PLAN TO RECEIVE A VACCINE IN THE NEXT 21 DAYS? :NO DO YOU NEED ANY PRESCRIPTION? :NO DO YOU TAKE ANY IMMUNOSUPPRESSIVE MEDICATIONS? :NO IS THERE A CHANCE YOU COULD BE ? :NO ARE YOU BREAST FEEDING? :NO FALL RISK SCREENING: SCREENING :TWO OR MORE FALLS WITHOUT INJURY IN THE PAST YEAR CURRENT MEDICATIONS TAKING BISACODYL 10 MG SUPPOSITORY 1 SUPPOSITORY NEEDED RECTAL ONCE A DAY TAKING METHOCARBAMOL 750 MG TABLET 2 TABLETS ORALLY THREE TIMES A DAY TAKING BISACODYL 5 MG 2 TAB ORALLY DAILY TAKING GAS-X EXTRA STRENGTH 125 MG TABLET CHEWABLE 1 TABLET AFTER MEALS AND AT BEDTIME NEEDED ORALLY THREE TIMES A DAY TAKING SALONPAS PAIN RELIEF PATCH 4% PATCH TOPICALLY NEEDED TAKING SALONPAS 4% CREAM TOPICALLY NEEDED TAKING DULOXETINE HCL 60 MG CAPSULE DELAYED RELEASE PARTICLES 1 CAPSULE ORALLY ONCE A DAY TAKING PANTOPRAZOLE SODIUM 40 MG TABLET DELAYED RELEASE 1 TABLET ORALLY ONCE A DAY TAKING CLONAZEPAM 0.5 MG TABLET 1 TABLET ORALLY BID TAKING TAMSULOSIN HCL 0.4 MG CAPSULE EXTENDED RELEASE 2 CAP(S) ORALLY DAILY TAKING COLACE 100 MG CAPSULE 1 CAPSULE NEEDED ORALLY ONCE A DAY TAKING PROZAC 10 MG CAPSULE 1 CAPSULE ORALLY ONCE A DAY TAKING GABAPENTIN 600 MG TABLET 1 TABLETS ORALLY THREE TIMES A DAY TAKING GABAPENTIN 300 MG CAPSULE 1 CAPSULE ORALLY 3 TIMES A DAY TAKING OXYCODONE HCL 5 MG TABLET 1 TABLET ORALLY Q8H TID MDD3 NOT-TAKING KETOROLAC TROMETHAMINE 10 MG TABLET 1 TABLET WITH FOOD OR MILK NEEDED ORALLY EVERY 6 HRS NOT-TAKING BUTRANS 20 MCG/HR PATCH WEEKLY 1 PATCH TO SKIN TRANSDERMAL 1 PATCH Q7 DAYS=MDD NOT-TAKING BELBUCA 150 MCG FILM 1 FILM TO THE GUM BUCALLY Q12H BID MDD2 NOT-TAKING NAPROXEN 500 MG TABLET 1 TABLET ORALLY TWICE A DAY NOT-TAKING ZOLOFT 50 MG TABLET 1 TABLET ORALLY ONCE A DAY NOT-TAKING SOMA 350 MG TABLET 1 TABLET NEEDED ORALLY TWICE A DAY MDD=2 NOT-TAKING CIALIS 20 MG TABLET 1 TABLET ORALLY 1 HOUR PRIOR TO SEXUAL INTERCOURSE NOT-TAKING MIRALAX PACKET 1 PACKET MIXED WITH 8 OUNCES OF FLUID ORALLY ONCE A DAY, NOTES: LAST NIGHT NOT-TAKING LYRICA 200 MG CAPSULE 1 CAPSULE ORALLY 3 CAPS PER DAY, NOTES: TODAY 0800 NOT-TAKING SOMA 350 MG TABLET 1 TABLET ORALLY 3 X DAY, NOTES: LAST [id number] NOT-TAKING PREDNISONE 5 MG TABLET 1 TABLET ORALLY ONCE A DAY NOT-TAKING ROBAXIN-750 750 MG TABLET 1 TABLET ORALLY EVERY 8 HRS, NOTES: LAST NIGHT 7PM NOT-TAKING LIDOCAINE 4 % CREAM DIRECTED EXTERNALLY APPLY TO PAINFUL AREAS OF BACK 4 TMES PER DAY NOT-TAKING LIDOCAINE 4 % GEL DIRECTED EXTERNALLY Q 6 HOURS TO PAINFUL AREA OF BACK NOT-TAKING LIDOCAINE 5 % PATCH 1 PATCH TO INTACT SKIN REMOVE AFTER 12 HOURS EXTERNALLY ON 12 HRS, OFF 12 HRS TO PAINFUL AREA OF BACK NOT-TAKING LINACLOTIDE 290 MCG CAPSULE 1 CAPSULE ORALLY ONCE A DAY NOT-TAKING ACETAMINOPHEN 650 MG TABLET 1 TABLET NEEDED ORALLY EVERY 6 HRS NOT-TAKING LIDOCAINE 2.5 CREAM 1 APPLICATION TO AFFECTED AREA NEEDED EXTERNALLY FOUR TIMES DAILY NOT-TAKING DUODERM CGF EXTRA THIN 1 MISCELLANEOUS DIRECTED EXTERNALLY TO SORE APPLY TO WOUND, CHANGE EVERY 3-5 DAYS UNTIL HEALED NOT-TAKING TEMOVATE 0.05 % CREAM 1 APPLICATION TO AFFECTED AREA EXTERNALLY TO ITCHY SPOTS ON BODY TWICE A DAY FOR TWO WEEKS, THEN THREE TIMES WEEKLY NOT-TAKING PREVACID 15 MG CAPSULE DELAYED RELEASE 1 CAPSULES BEFORE A MEAL ORALLY ONCE A DAY NOT-TAKING OSTEO BI-FLEX REGULAR STRENGTH 250-200 MG TABLET 1 TAB ORALLY TWICE DAILY NOT-TAKING LOVASTATIN 40 MG TABLET 1 TABLET WITH A MEAL ORALLY ONCE A DAY MEDICATION LIST REVIEWED AND RECONCILED WITH THE PATIENT PAST MEDICAL HISTORY DEPRESSION HYPERLIPDEMIA GERD IBS ARTHRITIS ANXIETY 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 SCOLIOSIS KIDNEY STONES PROSTATITS COMPRESSION FX THORACIC VERTEBRA INTERCOSTAL NEURITIS NEUROGENIC BOWEL SPASTICITY TBI PSEUDO HERNIA ALLERGIES CODEINE SULFATE: HIVES - ALLERGY HEPARIN: PROTIEN A IN BLOOD CLOGS DIALYSIS MACHINE - CONTRAINDICATION TIZANIDINE HCL: NAUSEA/VOMITING - ALLERGY SURGICAL HISTORY KIDNEY STONE 2004 T3-LUMBAR SURGERY MATT IN PLACE 01/03/14 CHOLECYSTECTOMY 11/2014 THORACIC DECOMPRESSION AND REMOVAL OF BONE PIECES 05/02/15 SCREENING COLONOSCOPY 2018 FAMILY HISTORY FATHER: ALIVE, ENLARGED PROSTATE, DIAGNOSED WITH HYPERTENSION MOTHER: ALIVE, DEMENTIA, HYPERTENSION SIBLINGS: ALIVE, DIABETES 1 SISTER(S) . 1 SON(S) , 1 DAUGHTER(S) - HEALTHY. NO KNOWN FAMILY HISTORY OF ANY UROLOGICALLY RELATED DISEASES\/CANCERS. SON-ANXIETY. SOCIAL HISTORY GENERAL: TOBACCO USE ARE YOU A:: NEVER SMOKER. LATEX QUESTIONNAIRE LATEX ALLERGY : HAVE YOU EVER DEVELOPED ANY TYPE OF REACTION AFTER HANDLING LATEX PRODUCTS SUCH RUBBER GLOVES, CONDOMS, DIAPHRAGMS, BALLOONS, SOCKS, OR UNDERWEAR?NO LATEX ALLERGY : HAVE YOU EVER DEVELOPED ANY TYPE OF REACTION DURING OR AFTER DENTAL APPOINTMENT, VAGINAL/RECTAL EXAMINATION, SURGICAL PROCEDURE, OR ANY OTHER EXPOSURE?NO LATEX RISK : HAVE YOU EVER HAD ANY DIFFICULTY BREATHING OR HIVES AFTER EATING OR HANDLING ANY FRUITS, OR VEGETABLES; SUCH KIWI, BANANAS, STONE FRUITS, OR CHESTNUTSNO LATEX RISK : DO YOU HAVE A PREVIOUS PERSONAL HISTORY OF MORE THAN NINE SURGERIES, SPINA BIFIDA, OR REPEATED CATHERIZATIONS? NO LATEX RISK : ARE YOU FREQUENTLY EXPOSED TO LATEX PRODUCTS IN YOUR OCCUPATION?NO DATE ASKED : 03/18/2020 ALCOHOL SCREENING DID YOU HAVE A DRINK CONTAINING ALCOHOL IN THE PAST YEAR?NO POINTS0 INTERPRETATIONNEGATIVE RECREATIONAL DRUG USE DENIES. CAFFEINE CAFFEINE USE? 1 CUP/DAY SEXUAL HX HAD SEX IN THE LAST 12 MONTHS (VAGINAL, ORAL, OR ANAL)?NO HAVE YOU EVER HAD AN STD?NO HIV / HEP-C SCREENING HIV TEST OFFERED TO PATIENT:YES DATE OFFERED:05/28/2018 TEST ACCEPTED:NO HEP-C TEST OFFERED TO PATIENT:YES DATE OFFERED:05/28/2018 REASON:PATIENT DECLINED TEST ACCEPTED:NO REASON:PATIENT DECLINED BROCHURE PROVIDED TO PATIENTNO MORMON NO JEHOVAH'S WITNESS BELIEFS THAT WOULD IMPACT HEALTH CARE. LANGUAGE WELSH. 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 DIET: REGULAR. EXERCISE: LIMITED DUE TO BACK INJURY. MARITAL STATUS: . OTHERS AT HOME: . PAIN CLINIC PFS, CLERGY, PUBLIC HEALTH REFERRALS WAS THE PROVIDER NOTIFIED OF ANY PERTINENT INFO?YES HAS THE PATIENT BEEN EDUCATED REGARDING HIS/HER PLAN OF CARE?YES HAS THE PATIENT BEEN EDUCATED REGARDING PAIN, THE RISK FOR PAIN, THE IMPORTANCE OF EFFECTIVE PAIN MANAGEMENT, AND THE PAIN ASSESSMENT PROCESS?YES ADVANCE DIRECTIVE ADVANCE DIRECTIVE DISCUSSED WITH PATIENT:YES PT DOES NOT HAVE ANY ADVANCED DIRECTIVES AND HE DECLINES INFORMATION ON HCP AT THIS TIME. 1-8 TT. HOSPITALIZATION/MAJOR DIAGNOSTIC PROCEDURE SURGICALY RELATED SEVERE BACK PAIN IN ED 2 SEPERATE OCCASIONS 07/2019 REVIEW OF SYSTEMS CONSTITUTIONAL: ANY RECENT FEVER NO . CHILLS NO . WEIGHT CHANGE OF UNKNOWN REASONS NO . GASTROENTEROLOGY: NEW UNEXPLAINABLE CHANGES IN BOWEL CONTROL NO . CONSTIPATION NO . GENITOURINARY: ANY NEW CHANGE IN BLADDER CONTROL? NO . NEUROLOGY: NEW ONSET DIZZINESS OR NEUROLOGICAL CHANGES NOT MENTIONED NO . NEW NUMBNESS OR PAIN PATTERNS NOT MENTIONED AND PERTINENT TO TODAY'S VISIT NO . CARDIOLOGY: NEW CHEST PRESSURE NO . NEW CHEST PAIN NO . RESPIRATORY: UNEXPLAINABLE COUGH NO . NEW SHORTNESS OF BREATH NO . VITAL SIGNS WT 231.0 LBS, HT 76 IN, BMI 28.12 INDEX, BP 116/73 MM HG, HR 95 /MIN, RR 18 /MIN, TEMP 96.1 F, OXYGEN SAT % 98%, SAFE IN ENV? (Y/N) YES, NA INITIALS AW 1331, REVIEWED BY: VICKIE VAUGHN. EXAMINATION GENERAL EXAMINATION: GENERAL AWAKE,ALERT ,PLEAASANT . PSYCH AFFECT NORMAL . LUNGS: LUNG ALEJANDRO ARE CLEAR TO AUSCULTATION BILATERALLY. GOOD MOVEMENT OF AIR . HEART: S1, S2 IN A REGULAR RATE AND RHYTHM. NO SIGNIFICANT MURMURS, RUBS OR GALLOPS NOTED . MUSCULOSKELETAL: MUSCLE STRENGTH TESTING 4/5 BILATERAL LOWER EXTREMITIES. LUMBAR: TRIGGER POINTS:, ELICITED WITH PALPATION OVER RIGHT LUMBAR PARAVERTEBRAL MUSCLES. INCREASE OF PAIN WITH RANGE OF JOINT MOTION OF SPINE NOTED IN THIS REGION. THORACIC SPINE: TRIGGER POINTS:, ELICITED WITH PALPATION OVER RIGHT MID THORACIC MUSCLES WITH INCREASED PAIN NOTED IN THIS AREA WITH RANGE OF JOINT MOTION OF THE SPINE.. ASSESSMENTS MYALGIA, OTHER SITE - M79.18 (PRIMARY) CHRONIC PRESCRIPTION OPIATE USE - Z79.891 TREATMENT MYALGIA, OTHER SITE STOP METHOCARBAMOL TABLET, 750 MG, 2 TABLETS, ORALLY, THREE TIMES A DAY CONTINUE DULOXETINE HCL CAPSULE DELAYED RELEASE PARTICLES, 60 MG, 1 CAPSULE, ORALLY, ONCE A DAY CONTINUE COLACE CAPSULE, 100 MG, 1 CAPSULE NEEDED, ORALLY, ONCE A DAY CONTINUE GABAPENTIN TABLET, 600 MG, 1 TABLETS, ORALLY, THREE TIMES A DAY CONTINUE GABAPENTIN CAPSULE, 300 MG, 1 CAPSULE, ORALLY, 3 TIMES A DAY CONTINUE OXYCODONE HCL TABLET, 5 MG, 1 TABLET, ORALLY, Q8H TID MDD3 NOTES: SLOWLY DECREASE AND DISCONTINUE MUSCLE RELAXANT METHOCARBAMOL. TAKE 1 TABLET 3 TIMES A DAY X14 DAYS, THEN TAKE 1 TABLET TWICE A DAY X10 DAYS,THEN 1 TABLET DAILY X5 DAYS AND DISCONTINUE. , ISTOP REGISTRY REVIEWED AND DEMONSTRATES COMPLLIANCE. PATIENT IS INSTRUCTED TO BRING ALL MEDICATIONS WE PRESCRIBED TO EVERY CLINIC VISIT URINE TOXICOLOGY TODAY RISKS OF NARCOTIC/OPIOD MEDICATIONS INCLUDES BUT IS NOT LIMITED TO RISK OF DEPENDANCE/DEVELOPMENT OF ADDICTION, MOOD DISTURBANCE AND DEPRESSION, OSTEOPOROSIS, HORMONAL AND LABIDAL CHANGES, RESPIRATORY DEPRESSION AND . PATIENT IS ADVISED NOT TO DRIVE OR DRINK ALCOHOL WHILE ON THESE MEDICATIONS, TRIGGER POINT INJECTIONS RIGHT THORACIC AND RIGHT LUMBAR PARASPINAL. REFERRAL TO:PHYSICAL THERAPIST REASON:2XWK X 6 WKS,MASSAGE,MYOFASCIAL RELEASE,STRETCHING,ULTRASOUND PROCEDURE CODES [id number] ESTABILISHED PATIENT [facility] CHARGE DISPOSITION & COMMUNICATION FOLLOW UP 4 WKS POST PROCEDURE (REASON: TRIGGER POINT INJECTIONS RIGHT THORACIC AND RIGHT LUMBAR PARASPINAL/FOLLOW-UP PHYSICAL THERAPY/REVIEW URINE TOXICOLOGY) ELECTRONICALLY SIGNED BY NOA JEWELL ON 03/21/2020 AT 11:16 AM EST DISCLAIMER : THIS IS A VISIT SUMMARY EXTRACTED FROM THE [employer] CHART. IT IS NOT A COPY OF THE [employer] PROGRESS NOTE. RAMÍREZ
== END ==
LOC: M PAIN 13:45
PROVIDERS: ATTEND Nurse Practitioner Family
DX: M79.18 Myalgia, other site (principal); F32.9 Major depressive disorder, single episode, unspecified; E78.5 Hyperlipidemia, unspecified; K21.9 Gastro-esophageal reflux disease without esophagitis; F41.9 Anxiety disorder, unspecified; N31.9 Neuromuscular dysfunction of bladder, unspecified; Z79.891 Long term (current) use of opiate analgesic; Z87.820 Personal history of traumatic brain injury; Z79.899 Other long term (current) drug therapy; Z88.5 Allergy status to narcotic agent; Z88.8 Allergy status to other drugs, medicaments and biological substances

== ENCOUNTER → 2020-04-05 | Outpatient (CLI) | payer SELFPAY ==
[~2020-04-05] MED LIST changes: +METH-1165; -METH750T2
== END ==
LOC: M LABSMTC 12:10
PROVIDERS: ATTEND Pediatrics
DX: Z20.822 Contact with and (suspected) exposure to COVID-19 (principal)

== ENCOUNTER → 2020-04-20 | Outpatient (CLI) | payer MEDICARE | LOC: M LABSMTC 10:22 | PROVIDERS: ATTEND Anesthesiology | DX: Z20.828 Contact with and (suspected) exposure to other viral communicable diseases (principal) ==

== ENCOUNTER → 2020-05-09 | Outpatient (CLI) | payer MEDICARE ==
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
== END ==
LOC: M PAIN 14:00
PROVIDERS: ATTEND Nurse Practitioner Family
DX: M79.18 Myalgia, other site (principal); F32.9 Major depressive disorder, single episode, unspecified; E78.5 Hyperlipidemia, unspecified; K21.9 Gastro-esophageal reflux disease without esophagitis; K58.9 Irritable bowel syndrome, unspecified; F41.9 Anxiety disorder, unspecified; N31.9 Neuromuscular dysfunction of bladder, unspecified; Z87.820 Personal history of traumatic brain injury; Z79.891 Long term (current) use of opiate analgesic; Z79.899 Other long term (current) drug therapy; Z88.5 Allergy status to narcotic agent; Z88.8 Allergy status to other drugs, medicaments and biological substances

== ENCOUNTER → 2020-07-11 | Outpatient (CLI) | payer MEDICARE ==
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
== END ==
LOC: M PAIN 14:15
PROVIDERS: ATTEND Nurse Practitioner Family
DX: M79.18 Myalgia, other site (principal); F32.9 Major depressive disorder, single episode, unspecified; E78.5 Hyperlipidemia, unspecified; K21.9 Gastro-esophageal reflux disease without esophagitis; K58.9 Irritable bowel syndrome, unspecified; F41.9 Anxiety disorder, unspecified; N31.9 Neuromuscular dysfunction of bladder, unspecified; Z87.820 Personal history of traumatic brain injury; Z79.891 Long term (current) use of opiate analgesic; Z79.899 Other long term (current) drug therapy; Z88.5 Allergy status to narcotic agent; Z88.8 Allergy status to other drugs, medicaments and biological substances

== ENCOUNTER 2020-08-12 11:55 | Emergency (ER) | payer MEDICARE ==
[~2020-08-12] VITALS: Ht 193 cm; Wt 106.8 kg
[~2020-08-12 11:55] MED LIST changes: +LIDO1CRE42 TOP; -LIDO2.5C15 TOP
[2020-08-12] MEDS ORDERED: DOXA1TAB42 (12:04)
[2020-08-12] MEDS ORDERED: KETOROLAC 60MG 2ML VIAL IM ONE (13:05)
[2020-08-12] MEDS ORDERED: diazePAM 10MG/2ML SYRINGE (J3360 PER 5MG) IM ONE (13:05)
[2020-08-12 13:36] VITALS: BP 91/55
== END 2020-08-12 13:38 | disposition home or self-care (01) ==
LOC: M ED 11:55
DX: G89.29 Other chronic pain (principal); M54.5 Low back pain; M54.6 Pain in thoracic spine; I10 Essential (primary) hypertension; Z87.442 Personal history of urinary calculi; Z79.899 Other long term (current) drug therapy; Z88.5 Allergy status to narcotic agent; Z88.8 Allergy status to other drugs, medicaments and biological substances
CPT/HCPCS: 96372; 99283; J1885; J3360

== ENCOUNTER → 2020-08-17 | Outpatient (CLI) | payer MEDICARE ==
[~2020-08-17] MED LIST changes: +DOXA1TAB42
--- NOTE | 2020-08-19 23:28 | ECWPNPC ---
PATIENT NAME: BRENDA CHEN : 1960 GENDER: MALE VISIT DATE: 08/17/2020 DISCHARGE DATE: 08/17/20 1510 VISIT LOCKED DATE TIME: PHYSICIAN: JOSESITO DESIR PHYSICIAN PAGER NO: INACTIVE RESOURCE: JOSESITO DESIR REASON FOR APPOINTMENT 1. MED MGMNT /UTOX HISTORY OF PRESENT ILLNESS GENERAL: HERE FOR FOLLOW-UP OF CHRONIC LOW BACK PAIN AND RIGHT SIDED ABDOMINAL PAIN. HISTORY OF TRAUMATIC FALL INJURY SEVERAL YEARS AGO. HAS HAD SPINAL SURGERY. RECENTLY SAW ORTHOPEDIC SURGEON REGARDING HIS LOWER BACK. THEY ARE NOT RECOMMENDING SURGERY AND ARE HAVING HIM INQUIRE ABOUT DORSAL COLUMN STIMULATOR. ALSO MAY FEEL THOUGH POSSIBLY HE COULD BE TOLERANT OF HIS CURRENT CHRONIC PAIN MEDICINE AND WE SHOULD THINK OF ALTERNATIVES. DISCUSSED DORSAL COLUMN STIMULATOR BRIEFLY WITH PATIENT. DISCUSSED MEDICATION TREATMENT PLAN. -. FALL RISK SCREENING: SCREENING : NO FALLS REPORTED IN THE LAST YEAR. PAIN SCREENING: PATIENT HAS A COMPLAINT OF ACUTE OR CHRONIC PAIN :YES LOCATION OF PAIN:ABDOMEN, LOW BACK INTENSITY OF PAIN (SCALE OF 1 TO 10):7 WHAT DOES YOUR PAIN FEEL LIKE:ACHING, BURNING, TENDER, THROBBING, SORE DURATION:ONLY WITH SPECIFIC ACTIVITIES, INTERMITTENT PAIN IS INCREASED BY:ACTIVITIES PAIN IS DECREASED BY:USE OF PAIN MEDICATIONS NURSING NOTE: -. PAIN CENTER INTAKE QUESTIONS: DO YOU HAVE A HISTORY OF MRSA? :NO DO YOU TAKE A BLOOD THINNERS? :NO DO YOU HAVE ANY BLEEDING DISORDERS? :NO ANY NEW NUMBNESS OR WEAKNESS IN YOUR LEGS OR ARMS? :NO ANY PACEMAKER,DEFIBRILLATOR, OR DORSAL COLUMN STIMULATOR? :NO DO YOU HAVE ANY RASHES OR OPEN SORES? :NO ARE YOU ALLERGIC TO IV DYE? :NO ARE YOU DIABETIC? :NO ANY NEW PROBLEMS WITH YOUR MEDICATIONS? :NO HAVE YOU RECEIVED A VACCINE IN THE PAST 30 DAYS? :NO DO YOU PLAN TO RECEIVE A VACCINE IN THE NEXT 21 DAYS? :NO DO YOU NEED ANY PRESCRIPTION? :NO DO YOU TAKE ANY IMMUNOSUPPRESSIVE MEDICATIONS? :NO IS THERE A CHANCE YOU COULD BE ? :NO ARE YOU BREAST FEEDING? :NO CURRENT MEDICATIONS TAKING GABAPENTIN 600 MG TABLET 2 CAP ORALLY THREE TIMES A DAY TAKING OXYCODONE HCL 5 MG TABLET 1 TABLET ORALLY Q8H TID MDD3 TAKING ROBAXIN-750 750 MG TABLET 1 TAB ORALLY THREE TIMES DAILY NEEDED TAKING BISACODYL 10 MG SUPPOSITORY 1 SUPPOSITORY RECTAL ONCE A DAY TAKING BISACODYL 5 MG 2 TAB ORALLY DAILY TAKING GAS-X EXTRA STRENGTH 125 MG TABLET CHEWABLE 1 TABLET AFTER MEALS AND AT BEDTIME NEEDED ORALLY THREE TIMES A DAY TAKING SALONPAS PAIN RELIEF PATCH 4% PATCH TOPICALLY NEEDED TAKING SALONPAS 4% CREAM TOPICALLY NEEDED TAKING PANTOPRAZOLE SODIUM 40 MG TABLET DELAYED RELEASE 1 TABLET ORALLY ONCE A DAY TAKING CLONAZEPAM 0.5 MG TABLET 1 TABLET ORALLY BID TAKING TAMSULOSIN HCL 0.4 MG CAPSULE EXTENDED RELEASE 2 CAP(S) ORALLY DAILY TAKING PROZAC 10 MG CAPSULE 1 CAPSULE ORALLY ONCE A DAY TAKING DULOXETINE HCL 60 MG CAPSULE DELAYED RELEASE PARTICLES 1 CAPSULE ORALLY ONCE A DAY TAKING COLACE 100 MG CAPSULE 1 CAPSULE NEEDED ORALLY ONCE A DAY NOT-TAKING KETOROLAC TROMETHAMINE 10 MG TABLET 1 TABLET WITH FOOD OR MILK NEEDED ORALLY EVERY 6 HRS NOT-TAKING BUTRANS 20 MCG/HR PATCH WEEKLY 1 PATCH TO SKIN TRANSDERMAL 1 PATCH Q7 DAYS=MDD NOT-TAKING BELBUCA 150 MCG FILM 1 FILM TO THE GUM BUCALLY Q12H BID MDD2 NOT-TAKING NAPROXEN 500 MG TABLET 1 TABLET ORALLY TWICE A DAY NOT-TAKING ZOLOFT 50 MG TABLET 1 TABLET ORALLY ONCE A DAY NOT-TAKING SOMA 350 MG TABLET 1 TABLET NEEDED ORALLY TWICE A DAY MDD=2 NOT-TAKING CIALIS 20 MG TABLET 1 TABLET ORALLY 1 HOUR PRIOR TO SEXUAL INTERCOURSE NOT-TAKING MIRALAX PACKET 1 PACKET MIXED WITH 8 OUNCES OF FLUID ORALLY ONCE A DAY, NOTES: LAST NIGHT NOT-TAKING LYRICA 200 MG CAPSULE 1 CAPSULE ORALLY 3 CAPS PER DAY, NOTES: TODAY 0800 NOT-TAKING SOMA 350 MG TABLET 1 TABLET ORALLY 3 X DAY, NOTES: LAST [id number] NOT-TAKING PREDNISONE 5 MG TABLET 1 TABLET ORALLY ONCE A DAY NOT-TAKING LIDOCAINE 4 % CREAM DIRECTED EXTERNALLY APPLY TO PAINFUL AREAS OF BACK 4 TMES PER DAY NOT-TAKING LIDOCAINE 4 % GEL DIRECTED EXTERNALLY Q 6 HOURS TO PAINFUL AREA OF BACK NOT-TAKING LIDOCAINE 5 % PATCH 1 PATCH TO INTACT SKIN REMOVE AFTER 12 HOURS EXTERNALLY ON 12 HRS, OFF 12 HRS TO PAINFUL AREA OF BACK NOT-TAKING LINACLOTIDE 290 MCG CAPSULE 1 CAPSULE ORALLY ONCE A DAY NOT-TAKING ACETAMINOPHEN 650 MG TABLET 1 TABLET NEEDED ORALLY EVERY 6 HRS NOT-TAKING LIDOCAINE 2.5 CREAM 1 APPLICATION TO AFFECTED AREA NEEDED EXTERNALLY FOUR TIMES DAILY NOT-TAKING DUODERM CGF EXTRA THIN 1 MISCELLANEOUS DIRECTED EXTERNALLY TO SORE APPLY TO WOUND, CHANGE EVERY 3-5 DAYS UNTIL HEALED NOT-TAKING TEMOVATE 0.05 % CREAM 1 APPLICATION TO AFFECTED AREA EXTERNALLY TO ITCHY SPOTS ON BODY TWICE A DAY FOR TWO WEEKS, THEN THREE TIMES WEEKLY NOT-TAKING PREVACID 15 MG CAPSULE DELAYED RELEASE 1 CAPSULES BEFORE A MEAL ORALLY ONCE A DAY NOT-TAKING OSTEO BI-FLEX REGULAR STRENGTH 250-200 MG TABLET 1 TAB ORALLY TWICE DAILY NOT-TAKING LOVASTATIN 40 MG TABLET 1 TABLET WITH A MEAL ORALLY ONCE A DAY MEDICATION LIST REVIEWED AND RECONCILED WITH THE PATIENT PAST MEDICAL HISTORY DEPRESSION HYPERLIPDEMIA GERD IBS ARTHRITIS ANXIETY 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 LATEX QUESTIONNAIRE LATEX ALLERGY : HAVE YOU EVER DEVELOPED ANY TYPE OF REACTION AFTER HANDLING LATEX PRODUCTS SUCH RUBBER GLOVES, CONDOMS, DIAPHRAGMS, BALLOONS, SOCKS, OR UNDERWEAR?NO LATEX ALLERGY : HAVE YOU EVER DEVELOPED ANY TYPE OF REACTION DURING OR AFTER DENTAL APPOINTMENT, VAGINAL/RECTAL EXAMINATION, SURGICAL PROCEDURE, OR ANY OTHER EXPOSURE?NO LATEX RISK : HAVE YOU EVER HAD ANY DIFFICULTY BREATHING OR HIVES AFTER EATING OR HANDLING ANY FRUITS, OR VEGETABLES; SUCH KIWI, BANANAS, STONE FRUITS, OR CHESTNUTSNO LATEX RISK : DO YOU HAVE A PREVIOUS PERSONAL HISTORY OF MORE THAN NINE SURGERIES, SPINA BIFIDA, OR REPEATED CATHERIZATIONS? NO LATEX RISK : ARE YOU FREQUENTLY EXPOSED TO LATEX PRODUCTS IN YOUR OCCUPATION?NO DATE ASKED : 08/17/2020 ALCOHOL USE: NO. ALCOHOL SCREENING DID YOU HAVE A DRINK CONTAINING ALCOHOL IN THE PAST YEAR?NO POINTS0 INTERPRETATIONNEGATIVE RECREATIONAL DRUG USE DENIES. CAFFEINE CAFFEINE USE? 1 CUP/DAY SEXUAL HX HAD SEX IN THE LAST 12 MONTHS (VAGINAL, ORAL, OR ANAL)?NO HAVE YOU EVER HAD AN STD?NO HIV / HEP-C SCREENING HIV TEST OFFERED TO PATIENT:YES DATE OFFERED:05/28/2018 TEST ACCEPTED:NO HEP-C TEST OFFERED TO PATIENT:YES DATE OFFERED:05/28/2018 REASON:PATIENT DECLINED TEST ACCEPTED:NO REASON:PATIENT DECLINED BROCHURE PROVIDED TO PATIENTNO YAZIDISM NO GNOSTICIST BELIEFS THAT WOULD IMPACT HEALTH CARE. LANGUAGE CZECH. EDUCATION LEVEL OF EDUCATION:COLLEGE LEARNING BARRIERS / SPECIAL NEEDS CHANGE FROM LAST VISIT?NO BARRIERS TO LEARNING?NO HEARING IMPAIRED?NO VISION IMPAIRED?YES :CORRECTIVE LENSES COGNITIVELY IMPAIRED?NO READINESS TO LEARN?YES LEARNING PREFERENCES?YES :BOOKLETS, HANDOUTS LEARNING CAPABILITIES PRESENT?YES EMOTIONAL BARRIERS?NO SPECIAL DEVICES?YES :CANE CLERICAL SUPPORT SPECIALIST NEEDED?NO DOMESTIC VIOLENCE DO YOU FEEL SAFE IN YOUR ENVIRONMENT?YES OCCUPATION: [employer], RETIRED/DISABLED. DIET: REGULAR. EXERCISE: LIMITED DUE TO BACK INJURY. MARITAL STATUS: . OTHERS AT HOME: . - WAS THE PROVIDER NOTIFIED OF ANY PERTINENT INFO?YES HAS THE PATIENT BEEN EDUCATED REGARDING HIS/HER PLAN OF CARE?YES HAS THE PATIENT BEEN EDUCATED REGARDING PAIN, THE RISK FOR PAIN, THE IMPORTANCE OF EFFECTIVE PAIN MANAGEMENT, AND THE PAIN ASSESSMENT PROCESS?YES ADVANCE DIRECTIVE ADVANCE DIRECTIVE DISCUSSED WITH PATIENT:YES PT DOES NOT HAVE ANY ADVANCED DIRECTIVES AND HE DECLINES INFORMATION ON HCP AT THIS TIME. 2020-1-8 TT. HOSPITALIZATION/MAJOR DIAGNOSTIC PROCEDURE SURGICALY RELATED SEVERE BACK PAIN IN ED 2 SEPERATE OCCASIONS 07/2019 PINCH NERVE- NOT SURE WHAT FOR 08/2020 REVIEW OF SYSTEMS CONSTITUTIONAL: ANY RECENT FEVER NO . CHILLS NO . WEIGHT CHANGE OF UNKNOWN REASONS NO . GASTROENTEROLOGY: NEW UNEXPLAINABLE CHANGES IN BOWEL CONTROL NO . CONSTIPATION NO . GENITOURINARY: ANY NEW CHANGE IN BLADDER CONTROL? NO . NEUROLOGY: NEW ONSET DIZZINESS OR NEUROLOGICAL CHANGES NOT MENTIONED NO . NEW NUMBNESS OR PAIN PATTERNS NOT MENTIONED AND PERTINENT TO TODAY'S VISIT NO . CARDIOLOGY: NEW CHEST PRESSURE NO . PATIENT DENIES NO . RESPIRATORY: UNEXPLAINABLE COUGH NO . NEW SHORTNESS OF BREATH NO . VITAL SIGNS WT 233 LBS, HT 76 IN, BMI 28.36 INDEX, BP 102/68 MM HG, HR 90 /MIN, RR 18 /MIN, TEMP 97.6 F, OXYGEN SAT % 96%, SAFE IN ENV? (Y/N) YES, NA INITIALS GA 14:27T.NAHID VAUGHN. EXAMINATION GENERAL EXAMINATION: GENERALAWAKE,ALERT ,PLEASANT . PSYCHAFFECT NORMAL . LUNGS:LUNG ALEJANDRO ARE CLEAR TO AUSCULTATION BILATERALLY. GOOD MOVEMENT OF AIR . HEART:S1, S2 IN A REGULAR RATE AND RHYTHM. NO SIGNIFICANT MURMURS, RUBS OR GALLOPS NOTED . ASSESSMENTS MYALGIA, OTHER SITE - M79.18 (PRIMARY) THORACIC BACK PAIN - M54.6 INTERCOSTAL NEUROPATHIC PAIN - G54.8 TREATMENT MYALGIA, OTHER SITE STOP OXYCODONE HCL TABLET, 5 MG, 1 TABLET, ORALLY, Q8H TID MDD3 REFILL ROBAXIN-750 TABLET, 750 MG, 1 TAB, ORALLY, THREE TIMES DAILY NEEDED, 30 DAYS, 90, REFILLS 2 REFILL GABAPENTIN TABLET, 600 MG, 2 CAP, ORALLY, THREE TIMES A DAY, 30 DAYS, 180 CAPSULE, REFILLS 2 START NUCYNTA TABLET, 50 MG, 1 TABLET, ORALLY, EVERY 6 HRS PRN SEVERE PAIN MDD4, 30 DAYS, 120 NOTES: PATIENT WAS GIVEN DORSAL COLUMN STIMULATOR INFORMATION AND WE WILL HAVE EMB[employer]ED SYSTEMS DESIGNER FROM [employer] CONTACT PATIENT. WE'LL HAVE DR. OROZCO REVIEW HIS CASE TO SEE IF HE HAS A CANDIDATE FOR DORSAL COLUMN STIMULATOR TRIAL. ADVISED TO STOP OXYCODONE AND START NUCYNTA 50 MG TABLET 1 EVERY 6 HOURS NEEDED FOR SEVERE PAIN EPISODES MAXIMUM DAILY DOSE OF 4. FOLLOW-UP IS SCHEDULED IN 6-8 WEEKS TO EVALUATE MEDICATION CHANGE AND CONSIDER VISIT WITH DR. OROZCO TO DISCUSS DORSAL COLUMN STIMULATOR TRIAL. PROCEDURE CODES FA211 ESTABILISHED PATIENT [facility] FACILITY CHARGE DISPOSITION & COMMUNICATION FOLLOW UP 6-8WKS (REASON: NEW MED/CONSIDER DCS TRIAL) ELECTRONICALLY SIGNED BY NOA JEWELL ON 08/19/2020 AT 09:00 AM EDT DISCLAIMER : THIS IS A VISIT SUMMARY EXTRACTED FROM THE [employer] [employer] CHART. IT IS NOT A COPY OF THE [employer] PROGRESS NOTE. MTDD
== END ==
LOC: M PAIN 14:15
PROVIDERS: ATTEND Nurse Practitioner Family
DX: M79.18 Myalgia, other site (principal); M54.6 Pain in thoracic spine; G54.8 Other nerve root and plexus disorders; K21.9 Gastro-esophageal reflux disease without esophagitis; Z86.59 Personal history of other mental and behavioral disorders; Z87.820 Personal history of traumatic brain injury; Z88.5 Allergy status to narcotic agent; Z88.8 Allergy status to other drugs, medicaments and biological substances; Z79.891 Long term (current) use of opiate analgesic; Z79.899 Other long term (current) drug therapy

== ENCOUNTER → 2020-11-15 | Outpatient (CLI) | payer MEDICARE | LOC: M PAIN 12:45 | PROVIDERS: ATTEND Anesthesiology | DX: G54.8 Other nerve root and plexus disorders (principal); M79.18 Myalgia, other site; M54.6 Pain in thoracic spine; F32.9 Major depressive disorder, single episode, unspecified; E78.5 Hyperlipidemia, unspecified; K21.9 Gastro-esophageal reflux disease without esophagitis; K58.9 Irritable bowel syndrome, unspecified; F41.9 Anxiety disorder, unspecified; N31.9 Neuromuscular dysfunction of bladder, unspecified; Z87.820 Personal history of traumatic brain injury; K59.2 Neurogenic bowel, not elsewhere classified; Z79.891 Long term (current) use of opiate analgesic; Z79.899 Other long term (current) drug therapy; Z88.5 Allergy status to narcotic agent; Z88.8 Allergy status to other drugs, medicaments and biological substances ==

== ENCOUNTER → 2020-12-01 | Outpatient (CLI) | payer MEDICARE ==
[2020-12-01 16:34] LABS: BLOOD UREA NITROGEN 24 MG/DL (7-18); CREATININE FOR GFR 1.22 MG/DL (0.70-1.30); GLOMERULAR FILTRATION RATE > 60.0 (>49)
== END ==
LOC: M LAB 15:29
PROVIDERS: ATTEND Physician Assistant Medical
DX: R10.11 Right upper quadrant pain (principal)

== ENCOUNTER → 2020-12-14 | Outpatient (CLI) | payer MEDICARE ==
[~2020-12-14] MED LIST changes: +GASTROGRAFIN SOLUTION 30ML (Q9963) ONE; +ISOVUE-370 76% 100ML VIAL ONE
--- NOTE | 2020-12-14 13:10 | REP ---
INDICATION: RUQ/RLQ PAIN. COMPARISON: None TECHNIQUE: Axial pre and post contrast-enhanced images from the lung bases to the pubic symphysis using oral and 100 cc Isovue 370 intravenous contrast material. Delayed images of the abdomen obtained along with coronal and sagittal reformations. This CT examination was performed using the following dose reduction techniques: Automated exposure control, adjustment of mA and/or kv according to the patient's size, and the use of iterative reconstruction technique. FINDINGS: Liver, spleen, pancreas, bilateral adrenal glands and left kidney are normal. Evidence for prior cholecystectomy with compensatory biliary dilatation. Right kidney includes 2.9 cm simple right lower pole cyst and few nonobstructing nephroliths up to 3 mm. The enteric system is without obstruction or acute inflammatory process. Scattered colonic and sigmoid diverticula noted without acute diverticulitis. Pelvis demonstrates mildly enlarged prostate gland with mass effect on the base of the bladder. No ascites. No free air. No intraperitoneal or retroperitoneal adenopathy. Abdominal aorta and vasculature appear normal. Musculoskeletal structures demonstrate extensive degenerative changes with Morgan rods through the visualized thoracolumbar spine to the L2 level. Old healed bilateral rib fractures noted. IMPRESSION: 1. No obvious acute abdominopelvic pathology appreciated. 2. Chronic stable findings as described above. <Electronically signed by Carlos Brown > 12/14/20 [id number]
== END ==
LOC: M PLAIMG 11:17
PROVIDERS: ATTEND Physician Assistant Medical
DX: R10.11 Right upper quadrant pain (principal); R10.31 Right lower quadrant pain
CPT/HCPCS: 74178; Q9963; Q9967

== ENCOUNTER → 2020-12-29 | Outpatient (CLI) | payer MEDICARE ==
[~2020-12-29] MED LIST changes: -GASTROGRAFIN SOLUTION 30ML (Q9963) ONE; -ISOVUE-370 76% 100ML VIAL ONE
== END ==
LOC: M PLALAB 14:21
PROVIDERS: ATTEND Urology
DX: Z12.5 Encounter for screening for malignant neoplasm of prostate (principal); Z87.442 Personal history of urinary calculi
CPT/HCPCS: 36415; G0103

== ENCOUNTER → 2021-01-23 | Outpatient (CLI) | payer MEDICARE | LOC: M PAIN 14:00 | PROVIDERS: ATTEND Nurse Practitioner Family | DX: M96.1 Postlaminectomy syndrome, not elsewhere classified (principal); K21.9 Gastro-esophageal reflux disease without esophagitis; Z86.59 Personal history of other mental and behavioral disorders; Z87.820 Personal history of traumatic brain injury; Z88.5 Allergy status to narcotic agent; Z88.8 Allergy status to other drugs, medicaments and biological substances; Z79.899 Other long term (current) drug therapy ==

== ENCOUNTER 2021-05-25 13:02 | Emergency (ER) | payer MEDICARE ==
[~2021-05-25] VITALS: Ht 193 cm; Wt 103.9 kg
[2021-05-25 13:03] VITALS: BP 125/78
== END 2021-05-25 13:59 | disposition left against medical advice (07) ==
LOC: M ED 13:02
DX: Z53.29 Procedure and treatment not carried out because of patient's decision for other reasons (principal)

== ENCOUNTER → 2021-05-25 | Outpatient (CLI) | payer MEDICARE ==
[~2021-05-25] MED LIST changes: +TIZA10TA PO; -TIZA4TAB4 PO
== END ==
LOC: M WUC 14:09
PROVIDERS: ATTEND Physician Assistant
DX: M54.50 Low back pain, unspecified (principal)

== ENCOUNTER → 2021-06-21 | Outpatient (CLI) | payer MEDICARE | LOC: M PAIN 14:45 | PROVIDERS: ATTEND Nurse Practitioner Family | DX: M79.10 Myalgia, unspecified site (principal); F32.A Depression, unspecified; E78.5 Hyperlipidemia, unspecified; K21.9 Gastro-esophageal reflux disease without esophagitis; K58.9 Irritable bowel syndrome, unspecified; F41.9 Anxiety disorder, unspecified; N31.9 Neuromuscular dysfunction of bladder, unspecified; N52.9 Male erectile dysfunction, unspecified; Z79.891 Long term (current) use of opiate analgesic; Z79.899 Other long term (current) drug therapy; Z88.5 Allergy status to narcotic agent; Z88.8 Allergy status to other drugs, medicaments and biological substances ==

== ENCOUNTER 2021-08-01 13:36 | Emergency (ER) | payer MEDICARE ==
[~2021-08-01] VITALS: Ht 193 cm; Wt 104.5 kg
[2021-08-01 13:37] VITALS: BP 103/62
[2021-08-01] MEDS ORDERED: KETOROLAC 60MG 2ML VIAL IM ONE (18:35)
== END 2021-08-01 18:58 | disposition home or self-care (01) ==
LOC: M ED 13:36
DX: G89.29 Other chronic pain (principal); M54.6 Pain in thoracic spine; S70.02XA Contusion of left hip, initial encounter; W01.0XXA Fall on same level from slipping, tripping and stumbling without subsequent striking against object, initial encounter; Y92.89 Other specified places as the place of occurrence of the external cause; I10 Essential (primary) hypertension; F03.90 Unspecified dementia, unspecified severity, without behavioral disturbance, psychotic disturbance, mood disturbance, and anxiety; E78.5 Hyperlipidemia, unspecified; F33.9 Major depressive disorder, recurrent, unspecified; F41.9 Anxiety disorder, unspecified; N40.0 Benign prostatic hyperplasia without lower urinary tract symptoms; K21.9 Gastro-esophageal reflux disease without esophagitis; Z87.19 Personal history of other diseases of the digestive system; Z87.442 Personal history of urinary calculi; Z79.899 Other long term (current) drug therapy; Z88.5 Allergy status to narcotic agent; Z88.8 Allergy status to other drugs, medicaments and biological substances
CPT/HCPCS: 72072; 72100; 73502; 96372; 99282; J1885

== ENCOUNTER → 2021-09-29 | Outpatient (CLI) | payer MEDICARE ==
[2021-09-29 10:13] LABS: HEMATOCRIT 44.7 % (42.0-52.0); HEMOGLOBIN 14.3 g/dl (13.5-17.5); MEAN CORPUSCULAR HEMOGLOBIN 30.6 pg (27.0-33.0); MEAN CORPUSCULAR VOLUME 95.7 fl (80.0-96.0); PLATELET COUNT, AUTOMATED 232 10^3/uL (150-450); RED BLOOD COUNT 4.67 10^6/uL (4.30-6.10); WHITE BLOOD COUNT 4.4 10^3/uL (4.0-10.0)
[2021-09-29 11:44] LABS: ALBUMIN 3.4 GM/DL (3.2-5.2); ALT/SGPT 20 U/L (12-78); BILIRUBIN,TOTAL 0.3 MG/DL (0.2-1.0); BLOOD UREA NITROGEN 25 MG/DL (7-18); CALCIUM LEVEL 8.8 MG/DL (8.8-10.2); CARBON DIOXIDE LEVEL 33 MEQ/L (21-32); CHLORIDE LEVEL 106 MEQ/L (98-107); CHOLESTEROL LEVEL 137 MG/DL (<200); CHOLESTEROL RISK RATIO 2.446 (<5); CREATININE FOR GFR 1.16 MG/DL (0.70-1.30); GLOMERULAR FILTRATION RATE > 60.0 (>49); GLUCOSE, FASTING 101 MG/DL (70-100); HDL CHOLESTEROL 56 MG/DL (>40); LDL CHOLESTEROL 62 MG/DL (<100); NON-HDL-C 81 MG/DL; POTASSIUM SERUM 4.7 MEQ/L (3.5-5.1); SODIUM LEVEL 141 MEQ/L (136-145); TOTAL PROTEIN 6.5 GM/DL (6.4-8.2); TRIGLYCERIDES LEVEL 95 MG/DL (<150)
== END ==
LOC: M PLALAB 08:25
PROVIDERS: ATTEND Family Medicine
DX: E78.5 Hyperlipidemia, unspecified (principal); R53.83 Other fatigue

== ENCOUNTER 2022-01-02 12:36 | Emergency (ER) | payer MEDICARE ==
[~2022-01-02] VITALS: Ht 193 cm; Wt 92.3 kg
[2022-01-02 12:37] VITALS: BP 103/66
== END 2022-01-02 16:48 | disposition left against medical advice (07) ==
LOC: M ED 12:36
DX: Z53.21 Procedure and treatment not carried out due to patient leaving prior to being seen by health care provider (principal)

== ENCOUNTER → 2022-03-08 | Outpatient (CLI) | payer MEDICARE | LOC: M PAIN 14:15 | PROVIDERS: ATTEND Nurse Practitioner Family | DX: M79.10 Myalgia, unspecified site (principal); G89.29 Other chronic pain; K21.9 Gastro-esophageal reflux disease without esophagitis; Z86.59 Personal history of other mental and behavioral disorders; Z87.820 Personal history of traumatic brain injury; Z88.5 Allergy status to narcotic agent; Z88.8 Allergy status to other drugs, medicaments and biological substances; Z79.899 Other long term (current) drug therapy ==

== ENCOUNTER → 2022-05-24 | Outpatient (CLI) | payer MEDICARE | LOC: M LABSMTC 09:12 | PROVIDERS: ATTEND Anesthesiology | DX: Z01.818 Encounter for other preprocedural examination (principal) ==

== ENCOUNTER → 2022-05-29 | Outpatient (CLI) | payer MEDICARE ==
[~2022-05-29] MED LIST changes: +BUPIVACAINE HCL 0.25% 10ML VIAL As Ordered ONE; +BUPIVACAINE HCL 0.25% 30ML VIAL As Ordered ONE; +TRIAMCINOLONE ACETONIDE SUSP 40MG/ML 1ML VIAL As Ordered ONE
== END ==
LOC: M PAIN 14:45
PROVIDERS: ATTEND Anesthesiology
DX: M79.18 Myalgia, other site (principal); G89.29 Other chronic pain; K21.9 Gastro-esophageal reflux disease without esophagitis; Z86.59 Personal history of other mental and behavioral disorders; Z87.820 Personal history of traumatic brain injury; Z88.5 Allergy status to narcotic agent; Z88.8 Allergy status to other drugs, medicaments and biological substances; Z79.899 Other long term (current) drug therapy
CPT/HCPCS: 20552; J3301

== ENCOUNTER → 2022-07-13 | Outpatient (CLI) | payer MEDICARE ==
[~2022-07-13] MED LIST changes: +BISA10SU20 PR; -BUPIVACAINE HCL 0.25% 10ML VIAL As Ordered ONE; -BUPIVACAINE HCL 0.25% 30ML VIAL As Ordered ONE; +DOXA1TAB42 PO; +FLUO40CA PO; +METH-1165 PO; +ROSU10TA6 PO; -TRIAMCINOLONE ACETONIDE SUSP 40MG/ML 1ML VIAL As Ordered ONE
== END ==
LOC: M PAIN 14:00
PROVIDERS: ATTEND Nurse Practitioner Family
DX: M79.10 Myalgia, unspecified site (principal); G89.29 Other chronic pain; K21.9 Gastro-esophageal reflux disease without esophagitis; Z86.59 Personal history of other mental and behavioral disorders; Z87.820 Personal history of traumatic brain injury; Z88.5 Allergy status to narcotic agent; Z88.8 Allergy status to other drugs, medicaments and biological substances; Z79.899 Other long term (current) drug therapy

== ENCOUNTER → 2022-12-25 | Outpatient (REF) | payer MEDICARE ==
[~2022-12-25] MED LIST changes: +DIAZ-654 PO; -LIDO1CRE42 TOP; +LIDO30CR18 TOP; -VALI10TA PO
== END ==
LOC: M LAB REF 16:17
PROVIDERS: ATTEND Physician Assistant Medical
DX: S21.209A Unspecified open wound of unspecified back wall of thorax without penetration into thoracic cavity, initial encounter (principal); Y93.9 Activity, unspecified; Y92.9 Unspecified place or not applicable

== ENCOUNTER → 2023-01-11 | Outpatient (CLI) | payer MEDICARE | LOC: M PAIN 16:00 | PROVIDERS: ATTEND Nurse Practitioner Family | DX: M79.10 Myalgia, unspecified site (principal); G89.29 Other chronic pain; Z88.5 Allergy status to narcotic agent; Z88.8 Allergy status to other drugs, medicaments and biological substances; Z79.899 Other long term (current) drug therapy ==

== ENCOUNTER → 2023-04-12 | Outpatient (CLI) | payer MEDICARE | LOC: M PAIN 14:45 | PROVIDERS: ATTEND Nurse Practitioner Family | DX: M79.18 Myalgia, other site (principal); G89.29 Other chronic pain; F32.A Depression, unspecified; E78.5 Hyperlipidemia, unspecified; K21.9 Gastro-esophageal reflux disease without esophagitis; F41.9 Anxiety disorder, unspecified; N40.0 Benign prostatic hyperplasia without lower urinary tract symptoms; N52.9 Male erectile dysfunction, unspecified; Z79.891 Long term (current) use of opiate analgesic; Z79.899 Other long term (current) drug therapy; Z88.5 Allergy status to narcotic agent; Z88.8 Allergy status to other drugs, medicaments and biological substances ==

== ENCOUNTER → 2023-05-23 | Outpatient (CLI) | payer MEDICARE ==
[~2023-05-23] MED LIST changes: -BISA10SU20 PR; +BISA10SU59 PR
== END ==
LOC: M PAIN 14:00
PROVIDERS: ATTEND Nurse Practitioner Family
DX: M96.1 Postlaminectomy syndrome, not elsewhere classified (principal); G89.29 Other chronic pain; F32.A Depression, unspecified; E78.5 Hyperlipidemia, unspecified; K58.9 Irritable bowel syndrome, unspecified; F41.9 Anxiety disorder, unspecified; Z79.891 Long term (current) use of opiate analgesic; Z79.899 Other long term (current) drug therapy; Z88.5 Allergy status to narcotic agent; Z88.8 Allergy status to other drugs, medicaments and biological substances

== ENCOUNTER → 2023-05-24 | Outpatient (REF) | payer MEDICARE ==
[2023-05-24 11:39] LABS: BASO # 0.1 10^3/uL (0.0-0.2); EOS # 0.2 10^3/uL (0.0-0.5); EOS % 4.4 % (0.0-3.0); HEMATOCRIT 45.4 % (42.0-52.0); HEMOGLOBIN 14.5 g/dl (13.5-17.5); LYMPH % 37.7 % (24.0-44.0); MEAN CORPUSCULAR HEMOGLOBIN 29.9 pg (27.0-33.0); MEAN CORPUSCULAR HGB CONC 31.9 g/dl (32.0-36.5); MEAN CORPUSCULAR VOLUME 93.6 fl (80.0-96.0); MONO # 0.4 10^3/uL (0.0-0.8); MONO % 8.4 % (2.0-8.0); NEUTROPHILS # 2.5 10^3/uL (1.5-8.5); NEUTROPHILS % 48.3 % (36.0-66.0); PLATELET COUNT, AUTOMATED 232 10^3/uL (150-450); RED BLOOD COUNT 4.85 10^6/uL (4.30-6.10); WHITE BLOOD COUNT 5.2 10^3/uL (4.0-10.0)
[2023-05-24 11:52] LABS: ALBUMIN 3.9 G/DL (3.2-5.2); ALKALINE PHOSPHATASE 69 U/L (46-116); ALT/SGPT 16 U/L (7.0-40); AST/SGOT 14 U/L (<34); BILIRUBIN,TOTAL 0.4 MG/DL (0.3-1.2); BLOOD UREA NITROGEN 21 MG/DL (9-23); CALCIUM LEVEL 9.1 MG/DL (8.3-10.6); CARBON DIOXIDE LEVEL 34 MMOL/L (20-31); CHLORIDE LEVEL 105 MMOL/L (98-107); CHOLESTEROL LEVEL 155 MG/DL (<200); CHOLESTEROL RISK RATIO 3.26 (<5); CREATININE FOR GFR 1.14 MG/DL (0.70-1.30); GLOMERULAR FILTRATION RATE > 60.0 (>49); GLUCOSE, FASTING 94 MG/DL (74-106); HDL CHOLESTEROL 47.5 MG/DL (>40); LDL CHOLESTEROL 81.3 MG/DL (<100); NON-HDL-C 107.5 MG/DL; POTASSIUM SERUM 4.4 MMOL/L (3.5-5.1); SODIUM LEVEL 144 MMOL/L (136-145); TRIGLYCERIDES LEVEL 131 MG/DL (<150)
== END ==
LOC: M LABDRAWP 10:16
PROVIDERS: ATTEND Family Medicine
DX: E78.5 Hyperlipidemia, unspecified (principal)

== ENCOUNTER → 2023-07-01 | Outpatient (CLI) | payer MEDICARE ==
[~2023-07-01] MED LIST changes: +PROHANCE 279.3MG/ML 15ML VIAL As Ordered ONE; +PROHANCE 279.3MG/ML 5ML VIAL As Ordered ONE
== END ==
LOC: M RAD 14:20
PROVIDERS: ATTEND Nurse Practitioner Family
DX: M96.1 Postlaminectomy syndrome, not elsewhere classified (principal)
CPT/HCPCS: 72157; 72158; A9576

== ENCOUNTER → 2023-07-18 | Outpatient (CLI) | payer MEDICARE ==
[~2023-07-18] MED LIST changes: -PROHANCE 279.3MG/ML 15ML VIAL As Ordered ONE; -PROHANCE 279.3MG/ML 5ML VIAL As Ordered ONE; -ROSU10TA6; -ROSU10TA6 PO; +ROSU10TA61; +ROSU10TA61 PO
== END ==
LOC: M PLALAB 14:05
PROVIDERS: ATTEND Urology
DX: Z12.5 Encounter for screening for malignant neoplasm of prostate (principal)

== ENCOUNTER → 2023-10-16 | Outpatient (CLI) | payer MEDICARE ==
[~2023-10-16] MED LIST changes: +FLUO-365; -FLUO20CA22; +REXU1TAB2 PO
== END ==
LOC: M PAIN 14:30
PROVIDERS: ATTEND Anesthesiology
DX: M79.10 Myalgia, unspecified site (principal); M96.1 Postlaminectomy syndrome, not elsewhere classified; M54.6 Pain in thoracic spine; M54.50 Low back pain, unspecified; M79.18 Myalgia, other site; Z88.5 Allergy status to narcotic agent; Z88.8 Allergy status to other drugs, medicaments and biological substances

== ENCOUNTER 2023-11-07 07:38 | Day surgery (SDC) | payer MEDICARE ==
[~2023-11-07] VITALS: Ht 190.5 cm; Wt 100.7 kg
[~2023-11-07 07:38] MED LIST changes: +GABA-1490; -GABA600T4
[2023-11-07] MEDS: NS 1,000 ML IV ONE (08:20)
[2023-11-07] MEDS ORDERED: propofoL 200 MG/20 ML VIAL As Ordered ONE (09:55)
[2023-11-07] MEDS ORDERED: LIDOCAINE 2% 100MG/5ML SDV (FOR ANES.) As Ordered ONE (09:55)
[2023-11-07] MEDS ORDERED: ePHEDrine SULFATE 25 MG/5 ML(5MG/ML) SYRINGE As Ordered ONE (10:35)
[2023-11-07] MEDS ORDERED: PHENYLephrine 500MCG 5ML (100MCG/ML) SYRINGE As Ordered ONE (10:35)
[2023-11-07] MEDS ORDERED: GLYCOPYRROLATE INJ 0.2 MG/ML 2 ML VIAL As Ordered ONE (10:54)
[2023-11-07 12:45] VITALS: TEMP 97.4
[2023-11-07 13:37] VITALS: BP 128/87; O2SAT 97
== END 2023-11-07 13:41 | disposition home or self-care (01) ==
LOC: M OPP 07:38
PROVIDERS: ATTEND Internal Medicine Gastroenterology
DX: Z86.010 Personal history of colon polyps (principal); D12.0 Benign neoplasm of cecum; D12.4 Benign neoplasm of descending colon; K63.5 Polyp of colon; Q43.8 Other specified congenital malformations of intestine; Z79.02 Long term (current) use of antithrombotics/antiplatelets; Z79.891 Long term (current) use of opiate analgesic; Z79.899 Other long term (current) drug therapy; Z88.5 Allergy status to narcotic agent; Z88.8 Allergy status to other drugs, medicaments and biological substances
CPT/HCPCS: 45385; 74018; 88305; J1596; J2371

== ENCOUNTER → 2024-01-13 | Outpatient (CLI) | payer MEDICARE ==
[2024-01-13 15:33] LABS: BASO % 0.8 % (0.0-1.0); EOS # 0.2 10^3/uL (0.0-0.5); EOS % 3.3 % (0.0-3.0); HEMATOCRIT 42.9 % (42.0-52.0); HEMOGLOBIN 14.1 g/dl (13.5-17.5); LYMPH # 1.7 10^3/uL (1.5-5.0); LYMPH % 33.4 % (24.0-44.0); MEAN CORPUSCULAR HEMOGLOBIN 30.6 pg (27.0-33.0); MEAN CORPUSCULAR HGB CONC 32.9 g/dl (32.0-36.5); MEAN CORPUSCULAR VOLUME 93.1 fl (80.0-96.0); MONO # 0.5 10^3/uL (0.0-0.8); MONO % 10.4 % (2.0-8.0); NEUTROPHILS # 2.6 10^3/uL (1.5-8.5); NEUTROPHILS % 51.9 % (36.0-66.0); PLATELET COUNT, AUTOMATED 220 10^3/uL (150-450); RED BLOOD COUNT 4.61 10^6/uL (4.30-6.10); WHITE BLOOD COUNT 5.1 10^3/uL (4.0-10.0)
[2024-01-13 16:40] LABS: ALBUMIN 3.6 G/DL (3.2-5.2); ALKALINE PHOSPHATASE 67 U/L (40-129); ALT/SGPT 20 U/L (7.0-40); AST/SGOT 16 U/L (<34); BILIRUBIN,TOTAL 0.4 MG/DL (0.3-1.2); BLOOD UREA NITROGEN 25 MG/DL (9-23); CALCIUM LEVEL 9.4 MG/DL (8.3-10.6); CARBON DIOXIDE LEVEL 31 MMOL/L (20-31); CHLORIDE LEVEL 104 MMOL/L (98-107); CHOLESTEROL LEVEL 186 MG/DL (<200); CHOLESTEROL RISK RATIO 3.54 (<5); CREATININE FOR GFR 1.17 MG/DL (0.70-1.30); GLOMERULAR FILTRATION RATE > 60.0 (>49); GLUCOSE, FASTING 78 MG/DL (74-106); HDL CHOLESTEROL 52.4 MG/DL (>40); LDL CHOLESTEROL 90.2 MG/DL (<100); NON-HDL-C 133.6 MG/DL; POTASSIUM SERUM 4.4 MMOL/L (3.5-5.1); SODIUM LEVEL 141 MMOL/L (136-145); TOTAL PROTEIN 7.3 G/DL (5.7-8.2); TRIGLYCERIDES LEVEL 217 MG/DL (<150)
== END ==
LOC: M LAB 14:58
PROVIDERS: ATTEND Family Medicine
DX: E78.5 Hyperlipidemia, unspecified (principal)

== ENCOUNTER → 2024-01-15 | Outpatient (CLI) | payer MEDICARE | LOC: M PAIN 13:30 | PROVIDERS: ATTEND Anesthesiology | DX: M96.1 Postlaminectomy syndrome, not elsewhere classified (principal); Z79.891 Long term (current) use of opiate analgesic; M79.10 Myalgia, unspecified site; M79.18 Myalgia, other site; F32.A Depression, unspecified; E78.5 Hyperlipidemia, unspecified; K21.9 Gastro-esophageal reflux disease without esophagitis; K58.9 Irritable bowel syndrome, unspecified; F41.9 Anxiety disorder, unspecified; Z79.899 Other long term (current) drug therapy; Z88.5 Allergy status to narcotic agent; Z88.8 Allergy status to other drugs, medicaments and biological substances ==

== ENCOUNTER → 2024-03-25 | Outpatient (CLI) | payer MEDICARE | LOC: M PAIN 14:45 | PROVIDERS: ATTEND Anesthesiology | DX: M54.6 Pain in thoracic spine (principal); Z79.891 Long term (current) use of opiate analgesic; M79.10 Myalgia, unspecified site; M79.18 Myalgia, other site; M96.1 Postlaminectomy syndrome, not elsewhere classified; F32.A Depression, unspecified; E78.5 Hyperlipidemia, unspecified; K21.9 Gastro-esophageal reflux disease without esophagitis; K58.9 Irritable bowel syndrome, unspecified; F41.9 Anxiety disorder, unspecified; Z79.899 Other long term (current) drug therapy; Z88.5 Allergy status to narcotic agent; Z88.8 Allergy status to other drugs, medicaments and biological substances ==

== ENCOUNTER 2024-06-10 18:30 | Emergency (ER) | payer MEDICARE ==
[~2024-06-10] VITALS: Ht 193 cm; Wt 106.1 kg
[2024-06-10 18:37] VITALS: BP 113/72; TEMP 97.9; O2SAT 98
== END 2024-06-10 20:49 | disposition left against medical advice (07) ==
LOC: M ED 18:30
DX: Z53.21 Procedure and treatment not carried out due to patient leaving prior to being seen by health care provider (principal)

== ENCOUNTER → 2024-12-24 | Outpatient (CLI) | payer MEDICARE ==
[~2024-12-24] MED LIST changes: -FLOM0.4C39 PO; +TAMS-18 PO
[2024-12-24 11:01] LABS: BASO # 0.0 10^3/uL (0.0-0.2); BASO % 0.9 % (0.0-1.0); EOS # 0.2 10^3/uL (0.0-0.5); EOS % 5.3 % (0.0-3.0); LYMPH # 1.6 10^3/uL (1.5-5.0); LYMPH % 34.7 % (24.0-44.0); MONO # 0.5 10^3/uL (0.0-0.8); MONO % 10.6 % (2.0-8.0); NEUTROPHILS # 2.2 10^3/uL (1.5-8.5); NEUTROPHILS % 48.3 % (36.0-66.0); PLATELET COUNT, AUTOMATED 256 10^3/uL (150-450)
[2024-12-24 11:06] LABS: ALT/SGPT 15.0 U/L (7.0-40); AST/SGOT 20.0 U/L (<34); CALCIUM LEVEL 9.2 MG/DL (8.3-10.6); CARBON DIOXIDE LEVEL 33.0 MMOL/L (20-31); CHLORIDE LEVEL 102.0 MMOL/L (98-107); CHOLESTEROL LEVEL 181.0 MG/DL (<200); CHOLESTEROL RISK RATIO 3.43 (<5); CREATININE FOR GFR 1.19 MG/DL (0.70-1.30); GLOMERULAR FILTRATION RATE 67.8 (>49); LDL CHOLESTEROL 91.9 MG/DL (<100); NON-HDL-C 128.3 MG/DL; POTASSIUM SERUM 4.3 MMOL/L (3.5-5.1); SODIUM LEVEL 145.0 MMOL/L (136-145); TRIGLYCERIDES LEVEL 182.0 MG/DL (<150)
== END ==
LOC: M PLALAB 07:40
PROVIDERS: ATTEND Family Medicine
DX: E78.5 Hyperlipidemia, unspecified (principal); R53.83 Other fatigue; N40.0 Benign prostatic hyperplasia without lower urinary tract symptoms; Z12.5 Encounter for screening for malignant neoplasm of prostate
CPT/HCPCS: 36415; 80053; 80061; 84443; 85025; G0103

== ENCOUNTER → 2024-12-24 | Outpatient (CLI) | payer MEDICARE | LOC: M PLALAB 07:39 | PROVIDERS: ATTEND Urology | DX: N40.0 Benign prostatic hyperplasia without lower urinary tract symptoms (principal) ==